=== PATIENT | male | born 1960 | race Caucasian/White ===

== ENCOUNTER 2021-07-22 07:55 | Inpatient (IN) ==
[2021-07-22] MEDS ORDERED: dilTIAZem HCl 5 MG/ML 5 ML VIAL IV STA (08:26)
--- NOTE | 2021-07-22 08:31 | Emergency Department Note ---
History of Present Illness General Chief complaint: Tachycardia Stated complaint: AFIB, S/P HERNIA SURGER 07/10 Time Seen by Provider: 07/22/21 08:12 History of Present Illness 60-year-old male presents to the ED with a chief complaint of A. fib. The patient states that he felt like he was A. fib starting around 2 AM this morning. The patient had his normal meds with little juice this morning. His symptoms did not improve. He decided come to the ED for evaluation. Denies any chest pains or shortness of breath. He does feel a fluttering rapid heart rate. No fevers or other symptoms. He does report a hernia repair 10 days ago. At that time he was not in A. fib. He has no additional complaints. He has seen Dr. Mckeon in the past. Home Medications Medication Instructions Recorded Confirmed Type aspirin 81 mg tablet,delayed 81 mg PO DAILY 07/22/21 07/22/21 History release atorvastatin 10 mg tablet 10 mg PO DAILY 07/22/21 07/22/21 History Allergies Allergy/AdvReac Type Severity Reaction Status Date / Time No Known Allergies Allergy Unverified 01/08/16 08:41 Past Med/Surg History Social History Smoking Status: Never smoker Review of Systems A total of 10 systems reviewed and were otherwise negative Physical Exam Vital Signs Vital Signs - 24 hr 07/22/21 08:01 07/22/21 08:31 07/22/21 08:40 Temperature 36.3 C L Temperature Source Temporal Artery Scan Pulse Rate 101 H 152 H 85 Pulse Rate from SpO2 Sensor 94 H 79 Respiratory Rate 18 18 16 Respiratory Effort / Characteristics Non-Labored Respiratory Depth Normal Blood Pressure 150/114 H 131/90 116/75 Blood Pressure Mean 126 103 88 Pulse Oximetry 95 94 95 Oxygen Delivery Method Room Air Sepsis Recent Fever Within 48 Hours No Sepsis New/Unexplained Change in Mental Status No Sepsis Action Taken by Nursing No Action Required 07/22/21 08:50 07/22/21 09:00 07/22/21 09:10 Temperature Temperature Source Pulse Rate 72 78 91 H Pulse Rate from SpO2 Sensor 58 L 70 89 Respiratory Rate 19 18 18 Respiratory Effort / Characteristics Respiratory Depth Blood Pressure 102/78 114/84 108/73 Blood Pressure Mean 86 94 84 Pulse Oximetry 93 94 95 Oxygen Delivery Method Sepsis Recent Fever Within 48 Hours Sepsis New/Unexplained Change in Mental Status Sepsis Action Taken by Nursing 07/22/21 09:20 07/22/21 09:30 07/22/21 09:40 Temperature Temperature Source Pulse Rate 89 100 H 85 Pulse Rate from SpO2 Sensor 73 62 75 Respiratory Rate 18 18 18 Respiratory Effort / Characteristics Respiratory Depth Blood Pressure 114/67 112/63 102/73 Blood Pressure Mean 82 79 82 Pulse Oximetry 94 94 93 Oxygen Delivery Method Sepsis Recent Fever Within 48 Hours Sepsis New/Unexplained Change in Mental Status Sepsis Action Taken by Nursing 07/22/21 09:51 07/22/21 10:00 07/22/21 10:10 Temperature Temperature Source Pulse Rate 86 93 H 108 H Pulse Rate from SpO2 Sensor 84 80 90 Respiratory Rate 18 18 18 Respiratory Effort / Characteristics Respiratory Depth Blood Pressure 138/71 119/75 125/66 Blood Pressure Mean 93 89 85 Pulse Oximetry 94 95 94 Oxygen Delivery Method Sepsis Recent Fever Within 48 Hours Sepsis New/Unexplained Change in Mental Status Sepsis Action Taken by Nursing 07/22/21 10:21 07/22/21 10:30 Temperature Temperature Source Pulse Rate 97 H 118 H Pulse Rate from SpO2 Sensor 86 93 H Respiratory Rate 18 18 Respiratory Effort / Characteristics Respiratory Depth Blood Pressure 142/75 H 118/80 Blood Pressure Mean 97 92 Pulse Oximetry 95 94 Oxygen Delivery Method Sepsis Recent Fever Within 48 Hours Sepsis New/Unexplained Change in Mental Status Sepsis Action Taken by Nursing CONSTITUTIONAL/VITAL SIGNS: Reviewed / noted above. GENERAL: Non-toxic in appearance. INTEGUMENTARY: Warm, dry, and [place]. HEAD: Normocephalic. EYES: without scleral icterus or trauma. ENT/OROPHARYNX: clear and moist. LYMPHADENOPATHY/NECK: Is supple without lymphadenopathy or meningismus. RESPIRATORY: Clear to auscultation bilaterally. No increased work of breathing. CARDIOVASCULAR: Rapid and irregular GI/ABDOMEN: Soft and nontender. No organomegaly or pulsatile mass. EXTREMITIES: Warm and well perfused. BACK: No CVA tenderness. NEUROLOGICAL: Intact without focal deficits. PSYCHIATRIC: normal affect. MUSCULOSKELETAL: Normally developed with good muscle tone. TRIAGE NURSING DOCUMENTATION REVIEWED. Course Administered Medications Discontinued Medications Diltiazem HCl (Diltiazem Hcl 5 Mg/Ml 5 Ml Vial) 30 mg IV NOW STA Stop: 07/22/21 08:27 Last Admin: 07/22/21 08:35 Dose: 30 mg Documented by: [id number] Cosigned by: [id number] Medical Decision Making Differential Diagnosis The differential that was considered includes acute myocardial infarction, acute coronary syndrome, myocarditis, pericarditis, pericardial effusions /tamponade, esophageal perforation, thoracic aortic dissection, pulmonary embolism, pneumonia, pneumothorax, pancreatitis, shingles, acute cholecystitis, perforated abdominal viscus. Medical Records Attestation: I reviewed the patient's medical records. Home Medications Current Medication List: was personally reviewed by me Laboratory Data Attestation: I reviewed the patient's lab results. Result diagrams: 07/22/21 08:22 07/22/21 08:22 Lab Results 07/22/21 07/22/21 Range/Units 08:22 08:22 WBC 8.73 (4.8-10.8) K/uL RBC 5.33 (4.7-6.1) M/uL Hgb 16.3 (14.0-18.0) g/dL Hct 46.8 (42-52) % MCV 87.8 (80-100) fL MCH 30.6 (25-34) pg MCHC 34.8 (32-36) g/dL RDW Std Deviation 40.3 (36.4-46.3) fL RDW Coeff of Alicja 12.6 (11.5-14.5) % Plt Count 284 (130-400) K/uL MPV 10.3 (7.4-10.4) fL Immature Gran % (Auto) 0.1 % Neut % (Auto) 70.3 % Lymph % (Auto) 20.5 % Cass % (Auto) 6.2 % Eos % (Auto) 2.7 % Baso % (Auto) 0.2 % Neut # (Auto) 6.13 (1.4-6.5) K/uL Lymph # (Auto) 1.79 (1.2-3.4) K/uL Cass # (Auto) 0.54 (0.11-0.59) K/uL Eos # (Auto) 0.24 (0-0.5) K/uL Baso # (Auto) 0.02 (0-0.2) K/uL Immature Gran # (Auto) 0.01 (0.00-0.02) K/uL Sodium 138 (136-145) mmol/L Potassium 4.2 (3.5-5.1) mmol/L Chloride 108 H (98-107) mmol/L Carbon Dioxide 23 (21-32) mmol/L Anion Gap 7.0 (3-11) BUN 16 (7-18) mg/dl Creatinine 1.07 (0.6-1.4) mg/dl Est Cr Clr Drug Dosing 99.0 ml/min Est GFR ( Amer) 86.4 ml/min Est GFR (Non-Af Amer) 74.5 ml/min BUN/Creatinine Ratio 14.8 (10-20) Glucose 117 H (70-99) mg/dl Calcium 9.4 (8.5-10.1) mg/dl Magnesium 2.1 (1.8-2.4) mg/dl Total Bilirubin 0.6 (0.2-1) mg/dl AST 20 (15-37) U/L ALT 42 (12-78) U/L Alkaline Phosphatase 76 (45-117) U/L Troponin I < 0.015 (0-0.045) ng/ml Total Protein 7.8 (6.4-8.2) gm/dl Albumin 4.0 (3.4-5.0) gm/dl Globulin 3.8 (2.5-4.0) gm/dl Albumin/Globulin Ratio 1.0 (0.9-2) TSH 1.220 (0.300-4.500) uIu/ml ECG Data Attestation: I personally reviewed and interpreted this ECG as follows: Additional Comments: Twelve-lead EKG: Per my interpretation there is atrial fibrillation at a rate of 132. Occasional PVC. No ST elevation. Normal QTC. MDM Narrative Patient presents with recurrent A. fib. He has had this once in the past that required cardioversion. He is not on any anticoagulation. He has not been in A. fib for a long time. He is currently not on a beta-mike for the past year or so because he is usually bradycardic. Symptoms started at 2 AM. His initial blood pressure here is 150/114. EKG shows A. fib with a rate of 132. The patient CBC and chemistry panel was unremarkable. Troponin was negative. TSH was normal. The patient was given 30 mg of IV Cardizem. The patient's heart rate did slow down into the upper upper 90s to low 100s. He did have a brief hypotensive episode that responded to IV fluids. I did speak with Dr. Mckeon. He recommends the patient be admitted. I spoke with the hospitalist, who will see the patient for further inpatient evaluation and care. Impression & Plan Atrial fibrillation with RVR Discharge Plan Visit Data Chief Complaint: Tachycardia Stated Complaint: AFIB, S/P HERNIA SURGER 07/10 ED Provider: Jose Fulton Discharge Problem: Atrial fibrillation with RVR Patient Disposition: Admitted As Inpatient Forms Stand Alone Forms: My [facility], Virtual Emergency Department, Important Visit Information Prescriptions Prescriptions: No Action atorvastatin 10 mg tablet 10 mg PO DAILY RF: 0 aspirin 81 mg tablet,delayed release (DR/EC) 81 mg PO DAILY RF: 0 Referrals Referrals: Nickolas Barros MD [Primary Care Provider] -
[2021-07-22 08:34] LABS: Basophils # (auto) 0.02 K/uL (0-0.2); Basophils % (auto) 0.2 %; Eosinophils # (auto) 0.24 K/uL (0-0.5); Eosinophils % (auto) 2.7 %; Hematocrit (blood only) 46.8 % (42-52); Hemoglobin 16.3 g/dL (14.0-18.0); Immature Granulocytes # (auto) 0.01 K/uL (0.00-0.02); Immature Granulocytes % (auto) 0.1 %; Lymphocytes # (auto) 1.79 K/uL (1.2-3.4); Lymphocytes % (auto) 20.5 %; Mean Corpuscular Hemoglobin 30.6 pg (25-34); Mean Corpuscular Hgb Conc 34.8 g/dL (32-36); Mean Corpuscular Volume 87.8 fL (80-100); Mean Platelet Volume 10.3 fL (7.4-10.4); Monocytes # (auto) 0.54 K/uL (0.11-0.59); Monocytes % (auto) 6.2 %; Neutrophils # (auto) 6.13 K/uL (1.4-6.5); Neutrophils % (auto) 70.3 %; Platelet Count 284 K/uL (130-400); RDW Coefficient of Variation 12.6 % (11.5-14.5); RDW Standard Deviation 40.3 fL (36.4-46.3); Red Blood Count 5.33 M/uL (4.7-6.1); White Blood Count 8.73 K/uL (4.8-10.8)
[2021-07-22 09:02] LABS: Alanine Aminotransferase 42 U/L (12-78); Aspartate Aminotransferase 20 U/L (15-37); BUN Creatinine Ratio 14.8 (10-20); Blood Urea Nitrogen 16 mg/dl (7-18); Calcium 9.4 mg/dl (8.5-10.1); Carbon Dioxide 23 mmol/L (21-32); Chloride 108 mmol/L (98-107); Est GFR (African American) 86.4 ml/min; Est GFR (Non-African American) 74.5 ml/min; Glucose 117 mg/dl (70-99); Magnesium 2.1 mg/dl (1.8-2.4); Potassium 4.2 mmol/L (3.5-5.1); Sodium 138 mmol/L (136-145)
[2021-07-22 09:13] LABS: Alkaline Phosphatase 76 U/L (45-117); Bilirubin,Total 0.6 mg/dl (0.2-1); Globulin 3.8 gm/dl (2.5-4.0); Total Protein 7.8 gm/dl (6.4-8.2); Troponin I < 0.015 ng/ml (0-0.045)
--- NOTE | 2021-07-22 10:46 | History & Physical Report ---
Date of Service July 22, 2021 Assessment & Plan (1) Atrial fibrillation with RVR: (2) Hypercholesteremia: Plan: This is a 60-year-old male who has significant past medical history of paroxysmal atrial relation, hyperlipidemia, chronic rhinitis, history of situa tion elevated blood pressure who presents to ED after experiencing heart racing and palpitations at approximately 2 AM. EKG reveals afib RVR, rates improved with bolus of IV diltiazem x1 for her pat ient became hypotensive. Hypotension resolved with IV fluids. During our evaluation heart rate increased to the 120s. Admit to PCU Consult cardiology start IV heparin gtt, [id number] 0-1 (per epic pt does have situational HTN but is currently not being treated) defer further anticoagulation to cardiology give 12.5mg oral metoprolol x 1 now and then metoprolol tartrate 25mg q6hr IV lopressor for HR > 110 obtain echocardiogram cycle trops - pt denies CP IVF 75cc/hr x 1 L pt takes ASA daily for prevention (no known hx of CAD), will hold while on IV heparin HLD continue statin FULL CODE Dispo: PCU PCP: Dr. Franklyn Nelson Pt was seen and examined in collaboration with Dr. Oconnell, please see addendum History of Present Illness Chief Complaint: Heart fluttering starting at 2a.m. Primary Care Provider: Nickolas Barros MD This is a 60-year-old male who has significant past medical history of paroxysmal atrial fibrillation, hyperlipidemia, chronic rhinitis, history of situation elevated blood pressure who presents to ED after experiencing heart racing and palpitations at approximately 2 AM. Of significance patient does have prior history of cardioversion approximately 5 to 6 years ago. He was successfully cardioverted and is never had a recurrence. He has been off anticoagulation and his beta-mike for several years without sequelae. Of significance he recently did undergo cardiac evaluation for preop clearance for hernia surgery. Hernia surgery was performed on 07/10/2021 and went well. At 2 a.m. he awoke from sleep with, "awful fluttering and irregularity." He got up and tried to go back to bed and slept a couple hours. He woke up at 4 a.m. to 6 a.m. and decided to come to ED. He felt palpitations, but denies chest pain or SOB. He does admit to dizziness, weakness, nausea and shakiness. He denies diaphoresis, f/c/s, syncope, sob, cough, v/d, abdominal pain. He denies recent illness except for recent hernia surgery. He feels he is healing well from surgery. He is eating and drinking as normally. He denies any difficulty with passing urine or stool. He was taking miralax to keep stool soft after surgery, but no bridgett diarrhea. He admits to minimal tenderness at surgical site. In ED he was found to be in afib with RVR. He received 30mg IV diltiazem which resulted in rate and blood pressure reduction. This causes him dizziness. Blood pressure improved with IVF, but HR in 120s. He is very active daily and did walk 3 miles daily. Allergies Allergy/AdvReac Type Severity Reaction Status Date / Time No Known Allergies Allergy Unverified 01/08/16 08:41 Home Medications Medication Instructions Recorded Confirmed Type acetaminophen 650 mg 1,300 mg PO DAILY 07/22/21 07/22/21 History tablet,extended release aspirin 81 mg tablet,delayed 81 mg PO DAILY 07/22/21 07/22/21 History release atorvastatin 10 mg tablet 10 mg PO DAILY 07/22/21 07/22/21 History calcium polycarbophil 625 mg 1,250 mg PO DAILY 07/22/21 07/22/21 History tablet (FiberCon) multivitamin 1 tab PO DAILY 07/22/21 07/22/21 History Past Med/Surg History Medical History (Updated 07/22/21 @ 10:57 by Ora Aceves PA-C) Chronic rhinitis Elevated blood pressure, situational Hypercholesteremia Surgical History (Updated 07/22/21 @ 10:57 by Ora Aceves PA-C) H/O colonoscopy "diverticulosis repeat in 10 years 06/03/15" H/O foot surgery "neuroma x 2 excised" Hx of inguinal hernia surgery 07/10/21 - Dr. donaldson Family History (Updated 07/22/21 @ 10:58 by Ora Aceves PA-C) Grandfather (Maternal) Coronary heart disease Grandfather (Paternal) Coronary heart disease Mother CHF (congestive heart failure) Social History (Updated 07/22/21 @ 10:58 by Ora Aceves PA-C) Smoking Status: Former smoker Tobacco Type: Cigarettes packs per day: 0.5; Years Smoked: 4; Smoking End Date: ; Hx Alcohol Use: Yes Alcohol type: beer Alcohol Intake Frequency: Monthly or Less Hx Substance Use: No Preferred Language: Turkmen Communication Ability: Effective marital status: Current Living Situation: Spouse Review of Systems Review of Systems: All systems reviewed & are unremarkable except as noted in HPI & below Physical Exam Physical Exam: Constitutional: WD/WN, vitals as above, NAD, sitting up in bed, pleasant, conversing easily Head: Normocephalic, Atraumatic Eyes: PERRL, conjunctivae normal, anicteric sclerae ENMT: external ear and nose normal, oropharynx normal Neck: trachea midline, no thyromegaly normal visual inspection Respiratory: normal respiratory effort, lungs clear to auscultation, no wheeze, rales, rhonchi. Normal insp/exp effort, no accessory muscle use Cardiovascular: IRR/IRR, no murmur, no edema Vessels: no JVD or carotid bruit Chest: normal inspection of chest Abdomen: normal bowel sounds, soft, nontender, no hepatosplenomegaly Musculoskeletal: no cyanosis or clubbing, extremities motor strength 5/5 Skin: no rashes, warm and dry normal turgor Neurologic: PERRL, EOMI, accommodation nl, no face palsy, no dysarthria CN's II-XI intact bilaterally and moves all extremities Psychiatric: A+Ox3, euthymic affect Lymphatic: no cervical or axillary lymphadenopathy : deferred Results & Data Results & Data ([facility]) Vital Signs (Past 12 Hours) Vital Signs Temp Pulse Resp BP Pulse Ox 07/22/21 10:30 118 H 18 118/80 94 07/22/21 10:21 97 H 18 142/75 H 95 07/22/21 10:10 108 H 18 125/66 94 07/22/21 10:00 93 H 18 119/75 95 07/22/21 09:51 86 18 138/71 94 07/22/21 09:40 85 18 102/73 93 07/22/21 09:30 100 H 18 112/63 94 07/22/21 09:20 89 18 114/67 94 07/22/21 09:10 91 H 18 108/73 95 07/22/21 09:00 78 18 114/84 94 07/22/21 08:50 72 19 102/78 93 07/22/21 08:40 85 16 116/75 95 07/22/21 08:31 152 H 18 131/90 94 07/22/21 08:01 36.3 C L 101 H 18 150/114 H 95 Medications Administered Medication List Heparin Sodium/Dextrose (Heparin Sodium/Dextrose) 25,000 units in 500 mls @ 35 mls/hr IV .[id number] [facility]; Protocol Stop: 08/21/21 11:29 Last Admin: 07/22/21 11:43 Dose: 1,750 units/hr, 35 mls/hr Documented by: [id number] Cosigned by: [id number] Discontinued Medications Diltiazem HCl (Diltiazem Hcl 5 Mg/Ml 5 Ml Vial) 30 mg IV NOW STA Stop: 07/22/21 08:27 Last Admin: 07/22/21 08:35 Dose: 30 mg Documented by: [id number] Cosigned by: [id number] Heparin Sodium/Dextrose (Heparin 27198 Unit/500 Ml D5w) Confirm Administered Dose 25,000 units IV .STK-MED ONE Stop: 07/22/21 11:35 Last Admin: 07/22/21 11:42 Dose: Not Given Documented by: [id number] Metoprolol Tartrate (Metoprolol Tartrate 25 Mg Tab) 12.5 mg PO NOW STA Stop: 07/22/21 11:15 Last Admin: 07/22/21 11:42 Dose: 12.5 mg Documented by: [id number] COVID-19 Results Results COVID-19 Adm Lab Results: RBC 5.33 M/uL (4.7-6.1) 07/22/21 WBC 8.73 K/uL (4.8-10.8) 07/22/21 Hgb 16.3 g/dL (14.0-18.0) 07/22/21 Hct 46.8 % (42-52) 07/22/21 Plt Count 284 K/uL (130-400) 07/22/21 Neutrophils (%) (Auto) 70.3 % 07/22/21 Lymphocytes (%) (Auto) 20.5 % 07/22/21 Monocytes # (Auto) 0.54 K/uL (0.11-0.59) 07/22/21 Eosinophils # (Auto) 0.24 K/uL (0-0.5) 07/22/21 Immature Granulocyte % (Auto) 0.1 % 07/22/21 Neutrophils # (Auto) 6.13 K/uL (1.4-6.5) 07/22/21 Lymphocytes # (Auto) 1.79 K/uL (1.2-3.4) 07/22/21 Monocytes # (Auto) 0.54 K/uL (0.11-0.59) 07/22/21 Eosinophils # (Auto) 0.24 K/uL (0-0.5) 07/22/21 Basophils # (Auto) 0.02 K/uL (0-0.2) 07/22/21 Immature Granulocyte # (Auto) 0.01 K/uL (0.00-0.02) 07/22/21 Na 138 mmol/L (136-145) 07/22/21 K 4.2 mmol/L (3.5-5.1) 07/22/21 Cl 108 mmol/L (98-107) H 07/22/21 CO2 23 mmol/L (21-32) 07/22/21 Anion Gap 7.0 (3-11) 07/22/21 BUN 16 mg/dl (7-18) 07/22/21 Creatinine 1.07 mg/dl (0.6-1.4) 07/22/21 BUN/Creatinine Ratio 14.8 (10-20) 07/22/21 Glucose Level 117 mg/dl (70-99) H 07/22/21 Ca 9.4 mg/dl (8.5-10.1) 07/22/21 Total Bilirubin 0.6 mg/dl (0.2-1) 07/22/21 AST/SGOT 20 U/L (15-37) 07/22/21 ALT/SGPT 42 U/L (12-78) 07/22/21 Alkaline Phosphatase 76 U/L (45-117) 07/22/21 Total Protein 7.8 gm/dl (6.4-8.2) 07/22/21 Albumin 4.0 gm/dl (3.4-5.0) 07/22/21 Globulin 3.8 gm/dl (2.5-4.0) 07/22/21 Albumin/Globulin Ratio 1.0 (0.9-2) 07/22/21 Troponin I < 0.015 ng/ml (0-0.045) 07/22/21 PTT 28.4 Seconds (21.0-31.0) 07/22/21 INR 1.0 (0.9-1.1) 07/22/21 COVID-19 PCR Pending 07/22/21 Chest X-Ray 07/22/21 Code Status & VTE Plan Code Status FULL CODE VTE Prophylaxis Plan VTE Prophylaxis will be ordered: Yes Supervising Physician Co-Signing Physician Notes Patient is a 60-year-old male with history of paroxysmal atrial fibrillation, hyperlipidemia and no other significant medical history presents with history of sudden onset of palpitations which started early this morning which woke him up from sleep. He reports associated dizziness, nausea. He had successful cardioversion in the past few years ago. He denies any chest pain, dyspnea, syncopal episode, fever, chills. He denies excessive alcohol use but admits to drinking ice tea on a daily basis. Please review HPI for complete details of presentation. Blood work within normal limits. TSH normal. EKG suggestive of A. fib RVR. Received IV Cardizem while in ED. On exam patient is moderately built and nourished, no apparent distress, normocephalic atraumatic, EOMI, lungs are clear to auscultation, normal breath sounds, heart sounds--irregularly irregular, no pedal edema, no audible murmur, abdomen soft, nontender, normal bowel sounds, alert, awake, oriented, grossly no focal deficits. Patient is admitted for management of A. fib RVR. Agree with starting metoprolol 25 mg every 6 hours, IV Lopressor as needed, will start on IV heparin for anticoagulation. Will consult cardiology for further evaluation. Will obtain echo, trend cardiac enzymes, monitor electrolytes and replace as needed. I personally reviewed the record. Patient is interviewed and examined at bedside. Patient's care is coordinated with Ora Aceves PA-C. Please refer to the documentation above for details of patient's presentation and for discussion of other issues.
[2021-07-22] MEDS ORDERED: METOPROLOL TARTRATE 25 MG TAB PO STA (11:14)
[2021-07-22] MEDS ORDERED: Heparin IV Adult Wt-Based Standard *NO* Bolus Protocol IV ONE (11:15)
[2021-07-22 11:32] LABS: Partial Thromboplastin Ratio 1.1; Partial Thromboplastin Time 28.4 Seconds (21.0-31.0); Prothrombin Time 10.2 Seconds (9.0-12.0)
[2021-07-22] MEDS ORDERED: HEPARIN 25000 UNIT/500 ML D5W IV ONE (11:34)
[2021-07-22] MEDS: HEPARIN SODIUM/DEXTROSE 25,000 UNITS/500 ML BAG IV SCH (11:43)
--- NOTE | 2021-07-22 12:38 | XRay Report ---
XR chest 1V portable CLINICAL HISTORY: afib COMPARISON STUDY: January 08, 2016. FINDINGS: No pneumothorax. No pleural effusion. No large infiltrates or consolidative lesions are seen. Redemonstration of the small density projecti ng to the anatomical region of the left hilum, unchanged since prior study in 2015. Cardiomediastinal silhouette is within normal limits in size. No significant pulmonary vascular congestion.. Osseous structures: Degenerative changes of the spine. IMPRESSION: 1. No acute pulmonary process. ACT 112: Negative or not required by law. The above report was generated using voice recognition software. It may contain grammatical, syntax o r spelling errors. Electronically signed by: Sasha Carolina DO 07/22/2021 12:37 PM
[2021-07-22] MEDS ORDERED: SODIUM CHLORIDE 0.9% 1000ML 1,000 ML IV SCH (15:29)
[2021-07-22] MEDS ORDERED: ALUMINUM/MAGNESIUM SUSP 30 ML UDC PO PRN (15:29)
[2021-07-22] MEDS ORDERED: MAGNESIUM HYDROXIDE SUSP 30 ML UDC PO PRN (15:29)
[2021-07-22] MEDS ORDERED: METOPROLOL TARTRATE 1 MG/ML VIAL IV PRN (15:29)
[2021-07-22] MEDS ORDERED: ONDANSETRON INJ 2 MG/ML 2 ML VIAL IV PRN (15:29)
[2021-07-22] MEDS ORDERED: POLYETHYLENE (MIRALAX) 17 GM PACK PO PRN (15:29)
[2021-07-22] MEDS ORDERED: ACETAMINOPHEN 325 MG TAB PO PRN (15:29)
[2021-07-22] MEDS: METOPROLOL TARTRATE 25 MG TAB PO SCH ×2 (16:35→21:06)
--- NOTE | 2021-07-22 16:39 | Cardiology Consultation ---
Date of Consultation July 22, 2021 Assessment & Plan (1) Atrial fibrillation with RVR: (2) Hypertensive heart disease: 60-year-old patient presents with paroxysmal atrial fibrillation rapid ventricular response. History consistent with possible short salvos of recurrent A. fib throughout the week since his surgery 10 days ago. He did not tolerate intravenous diltiazem, 30 mg with resultant hypotension. Continue oral metoprolol 25 mg every 6 hours. N.p.o. except medications after midnight with plans for transesophageal echocardiogram guided cardioversion in the a.m. Weight-based intravenous heparin initiated. Recommend at least 30 days of anticoagulation post cardioversion. Risk, benefits, alternatives to UDAY guided cardioversion discussed. Anesthesia consulted. Patient agreeable. History of Present Illness Reason for Consultation: Atrial fibrillation with rapid ventricular response Requesting Physician: Dr. Oconnell Attending Physician: George Oconnell MD History of Present Illness 60-year-old patient presented to the emergency department with palpitations. Underwent laparoscopic hernia repair approximately 10 days ago. Throughout the week he has noted intermittent "chest quivers". Symptoms lasting seconds to minutes. At approximately 2 AM last evening, he woke again with a feeling of "chest quivers". He drank some water in the hopes that symptoms resolved. Symptoms persisted prompting ER evaluation. In the ER ECG confirmed atrial fibrillation with rapid ventricular response. He was treated with a 30 mg dose of IV Cardizem. He subsequently developed symptomatic hypotension and near syncope. Received IV fluids with improvement. Intravenous heparin initiated. Currently resting comfortably in hospital bed. Heart rate up to 140 bpm without any obvious symptoms. Last episode of atrial fibrillation occurred in 2016. At that time patient underwent external direct-current cardioversion with 150 J. No complications. He was not treated with beta-mike therapy in the outpatient setting due to chronic sinus bradycardia. Anticoagulated 30 days post most recent cardioversion in 2016, however, due to low [id number] score, he has not been maintained on chronic anticoagulation. Denies chest pain or heaviness. No personal history of diabetes, coronary disease, TIA/CVA, or rheumatic fever as a child. Preliminary review of resting 2D transthoracic echocardiogram demonstrates moderate concentric left ventric ular hypertrophy, mild left atrial large man, preserved LV systolic function, no significant valvular pathology. Allergies Allergy/AdvReac Type Severity Reaction Status Date / Time No Known Allergies Allergy Unverified 01/08/16 08:41 Home Medications Medication Instructions Recorded Confirmed Type acetaminophen 650 mg 1,300 mg PO DAILY 07/22/21 07/22/21 History tablet,extended release aspirin 81 mg tablet,delayed 81 mg PO DAILY 07/22/21 07/22/21 History release atorvastatin 10 mg tablet 10 mg PO DAILY 07/22/21 07/22/21 History calcium polycarbophil 625 mg 1,250 mg PO DAILY 07/22/21 07/22/21 History tablet (FiberCon) multivitamin 1 tab PO DAILY 07/22/21 07/22/21 History Patient History Medical History Chronic rhinitis Elevated blood pressure, situational Hypercholesteremia Surgical History H/O colonoscopy "diverticulosis repeat in 10 years 06/03/15" H/O foot surgery "neuroma x 2 excised" Hx of inguinal hernia surgery 07/10/21 - Dr. donaldson Family History Grandfather (Maternal) Coronary heart disease Grandfather (Paternal) Coronary heart disease Mother CHF (congestive heart failure) Social History Smoking Status: Former smoker Tobacco Type: Cigarettes packs per day: 0.5; Years Smoked: 4; Smoking End Date: ; Hx Alcohol Use: Yes Alcohol type: beer Alcohol Intake Frequency: Monthly or Less Hx Substance Use: No Preferred Language: Thai Communication Ability: Effective Garbage Man Required: No Beliefs That Will Affect Care: None marital status: Current Living Situation: Spouse Other Information That Helps Us Care for You: No Feels Safe at Home: Yes Safety Concerns: Feels Safe At This Time Assistive Devices: None Review of Systems Review of Systems: All systems reviewed & are unremarkable except as noted in Subjective Physical Exam Constitutional: well developed and well nourished; no acute distress and not ill appearing Respiratory: normal respiratory effort; no respiratory distress, no labored breathing and no retractions Auscultation: lungs clear to auscultation bilaterally; no diminished lung sounds, no crackles, no rales, no rhonchi and no wheezes Cardiovascular: Rate/Rhythm: + tachycardic and + irregularly irregular Heart Sounds: normal S1 and normal S2; no murmur and no cardiac rub Vessels: radial pulses present; no JVD and no carotid bruit Extremities: no calf tenderness and no edema Gastrointestinal (Abdomen): Inspection/Auscultation: abdomen normal to inspection and normal bowel sounds; abdomen not distended Percussion/Palpation: abdomen soft; abdomen nontender, no guarding and abdomen not rigid Neurologic: CN's II-XI intact bilaterally and moves all extremities; no focal motor deficits Motor/Sensory: no tremor Psychiatric: A+Ox3, euthymic affect Results & Data ([facility]) Vital Signs (Past 12 Hours) Vital Signs Temp Pulse Pulse Resp BP BP Pulse Ox 07/22/21 15:24 36.5 C 120 H 120 H 20 144/91 H 99 07/22/21 14:31 109 H 18 152/90 H 97 07/22/21 14:00 93 H 18 135/83 97 07/22/21 13:45 108 H 18 127/88 96 07/22/21 13:31 99 H 20 131/84 97 07/22/21 13:16 116 H 19 145/81 H 95 07/22/21 13:00 126 H 17 139/87 94 07/22/21 12:46 110 H 20 121/56 L 95 07/22/21 12:31 132 H 18 98/69 L 93 07/22/21 12:15 136 H 20 94 07/22/21 12:03 121 H 15 96 07/22/21 11:46 117 H 12 95 07/22/21 11:31 135 H 18 118/98 95 07/22/21 11:16 122 H 15 136/97 94 07/22/21 11:00 119 H 16 151/113 H 95 07/22/21 10:46 121 H 12 129/100 95 07/22/21 10:30 118 H 18 118/80 94 07/22/21 10:21 97 H 18 142/75 H 95 07/22/21 10:10 108 H 18 125/66 94 07/22/21 10:00 93 H 18 119/75 95 07/22/21 09:51 86 18 138/71 94 07/22/21 09:40 85 18 102/73 93 07/22/21 09:30 100 H 18 112/63 94 07/22/21 09:20 89 18 114/67 94 07/22/21 09:10 91 H 18 108/73 95 07/22/21 09:00 78 18 114/84 94 07/22/21 08:50 72 19 102/78 93 07/22/21 08:40 85 16 116/75 95 07/22/21 08:31 152 H 18 131/90 94 07/22/21 08:01 36.3 C L 101 H 18 150/114 H 95
[2021-07-22 20:37] LABS: Partial Thromboplastin Time 52.4 Seconds (21.0-31.0)
[2021-07-23] MEDS: HEPARIN SODIUM/DEXTROSE 25,000 UNITS/500 ML BAG IV SCH (01:09)
[2021-07-23 05:20] LABS: Hematocrit (blood only) 45.4 % (42-52); Hemoglobin 15.7 g/dL (14.0-18.0); Mean Corpuscular Hemoglobin 30.7 pg (25-34); Mean Corpuscular Hgb Conc 34.6 g/dL (32-36); Mean Corpuscular Volume 88.7 fL (80-100); Mean Platelet Volume 10.3 fL (7.4-10.4); Platelet Count 258 K/uL (130-400); RDW Coefficient of Variation 12.9 % (11.5-14.5); RDW Standard Deviation 41.9 fL (36.4-46.3); Red Blood Count 5.12 M/uL (4.7-6.1); White Blood Count 10.13 K/uL (4.8-10.8)
[2021-07-23 05:42] LABS: BUN Creatinine Ratio 16.3 (10-20); Calcium 8.9 mg/dl (8.5-10.1); Creatinine Clr Calc Pharmacy 106.1 ml/min; Est GFR (African American) 94.9 ml/min; Est GFR (Non-African American) 81.9 ml/min; Magnesium 2.2 mg/dl (1.8-2.4); Potassium 4.2 mmol/L (3.5-5.1)
[2021-07-23 05:43] LABS: Partial Thromboplastin Ratio 2.2
[2021-07-23 05:47] LABS: Partial Thromboplastin Time 58.7 Seconds (21.0-31.0)
--- NOTE | 2021-07-23 05:51 | Electrocardiogram Report ---
Test Reason : Blood Pressure : / mmHG Vent. Rate : 132 BPM Atrial Rate : 131 BPM P-R Int : 000 ms QRS Dur : 080 ms QT Int : 300 ms P-R-T Axes : 000 050 010 degrees QTc Int : 444 ms Atrial fibrillation with rapid ventricular response with premature ventricular or aberrantly conducte d complexes Abnormal ECG When compared with ECG of 09-JAN-2016 11:10, Atrial fibrillation has replaced Sinus rhythm Vent. rate has increased BY 82 BPM Nonspecific T wave abnormality now evident in Inferior leads Confirmed by Bull Reyes ([id number]) on 07/23/2021 5:51:00 AM Referred By: REFERRED SELF Confirmed By:Bull Reyes
--- NOTE | 2021-07-23 06:30 | Anesthesiology Consultation ---
Date of Service July 23, 2021 Assessment & Plan (1) Encounter for pre-operative examination: Chart Review Chart Review: data entry analyst initiated History Surgery Operation Date: 07/23/21 07:15 Proposed Procedures p Transesophageal Echo w/Anesthesia - Ayden Lopez DO s Cardioversion - Ayden Lopez DO Height/Weight Height: 6 ft 4 in Weight: 109.1 kg Allergies Allergy/AdvReac Type Severity Reaction Status Date / Time No Known Allergies Allergy Unverified 01/08/16 08:41 Medications Home Medications Medication Instructions Recorded Confirmed Last Taken acetaminophen 650 mg 1,300 mg PO DAILY 07/22/21 07/22/21 Unknown tablet,extended release aspirin 81 mg tablet,delayed 81 mg PO DAILY 07/22/21 07/22/21 Unknown release atorvastatin 10 mg tablet 10 mg PO DAILY 07/22/21 07/22/21 Unknown calcium polycarbophil 625 mg 1,250 mg PO DAILY 07/22/21 07/22/21 Unknown tablet (FiberCon) multivitamin 1 tab PO DAILY 07/22/21 07/22/21 Unknown Active Medications Generic Name Dose Route Start Last Admin Trade Name Freq PRN Reason Stop Dose Admin Heparin Sodium/Dextrose 25,000 units in 500 mls @ 35 mls/hr 07/22/21 11:30 07/23/21 05:52 Heparin Sodium/Dextrose IV 08/21/21 11:29 1,750 units/hr .[id number] MINA 35 mls/hr Titration Protocol 1,750 UNITS/HR Metoprolol Tartrate 25 mg 07/22/21 16:00 07/22/21 21:06 Metoprolol Tartrate 25 Mg Tab PO 08/21/21 15:59 25 mg QID MINA Administration Past Medical History Medical History Chronic rhinitis Elevated blood pressure, situational Hypercholesteremia Past Family History Family History Grandfather (Maternal) Coronary heart disease Grandfather (Paternal) Coronary heart disease Mother CHF (congestive heart failure) Past Surgical History Surgical History H/O colonoscopy "diverticulosis repeat in 10 years 06/03/15" H/O foot surgery "neuroma x 2 excised" Hx of inguinal hernia surgery 07/10/21 - Dr. donaldson Social History Smoking Status: Former smoker Smoking End Date: Hx Alcohol Use: Yes Alcohol type: beer Hx Substance Use: No Physical Exam Vital Signs Last Vital Signs Temp 97.9 F 07/23/21 04:40 Pulse 105 H 07/23/21 04:40 Resp 18 07/23/21 04:40 BP 114/88 07/23/21 04:40 Pulse Ox 95 07/23/21 04:40 Testing Laboratory Results 07/23/21 04:45 07/23/21 04:45 PT 10.2 Seconds (9.0-12.0) 07/22/21 08:22 INR 1.0 (0.9-1.1) 07/22/21 08:22 APTT 58.7 Seconds (21.0-31.0) H* 07/23/21 04:45 Electrocardiogram Date: 07/23/21 Atrial fibrillation with premature ventricular or aberrantly conducted complexes, rate 100 bpm Abnormal ECG When compared with ECG of 22-JUL-2021 08:10, Non-specific change in ST segment in Lateral leads Nonspecific T wave abnormality no longer evident in Inferior leads Nonspecific T wave abnormality now evident in Lateral leads Chest X-Ray Date: 07/22/21 Findings: + NAD
[2021-07-23] MEDS ORDERED: CANNULA ONE (07:25)
--- NOTE | 2021-07-23 08:45 | Anesthesiology Progress Note ---
Date of Service July 23, 2021 Anesthesia Post Procedure Vital Signs Vital Signs: Temp Pulse Pulse Resp BP BP Pulse Ox 07/23/21 08:30 54 L 18 90/64 L 94 07/23/21 08:15 56 L 18 92/56 L 97 07/23/21 07:18 115 H 18 96 07/23/21 04:40 36.6 C 105 H 18 114/88 95 07/22/21 23:25 100 H 07/22/21 23:16 36.6 C 89 18 132/96 93 07/22/21 19:21 37.1 C 90 18 140/97 95 07/22/21 19:07 90 07/22/21 16:00 120 H 07/22/21 15:24 36.5 C 120 H 120 H 20 144/91 H 99 07/22/21 14:31 109 H 18 152/90 H 97 07/22/21 14:00 93 H 18 135/83 97 07/22/21 13:45 108 H 18 127/88 96 07/22/21 13:31 99 H 20 131/84 97 07/22/21 13:16 116 H 19 145/81 H 95 07/22/21 13:00 126 H 17 139/87 94 07/22/21 12:46 110 H 20 121/56 L 95 07/22/21 12:31 132 H 18 98/69 L 93 07/22/21 12:15 136 H 20 94 07/22/21 12:03 121 H 15 96 07/22/21 11:46 117 H 12 95 07/22/21 11:31 135 H 18 118/98 95 07/22/21 11:16 122 H 15 136/97 94 07/22/21 11:00 119 H 16 151/113 H 95 07/22/21 10:46 121 H 12 129/100 95 07/22/21 10:30 118 H 18 118/80 94 07/22/21 10:21 97 H 18 142/75 H 95 07/22/21 10:10 108 H 18 125/66 94 07/22/21 10:00 93 H 18 119/75 95 07/22/21 09:51 86 18 138/71 94 07/22/21 09:40 85 18 102/73 93 07/22/21 09:30 100 H 18 112/63 94 07/22/21 09:20 89 18 114/67 94 07/22/21 09:10 91 H 18 108/73 95 07/22/21 09:00 78 18 114/84 94 07/22/21 08:50 72 19 102/78 93 Transfer of Care Handoff Completed per policy Notes Mental Status: alert / awake / arousable Patient Amnestic to Procedure: Yes Nausea / Vomiting: adequately controlled Pain: adequately controlled Airway Patency, RR, SpO2: stable & adequate BP & HR: stable & adequate Hydration State: stable & adequate Anesthetic Complications: no major complications apparent
[2021-07-23] MEDS: METOPROLOL TARTRATE 25 MG TAB PO SCH ×2 (09:02→13:14)
--- NOTE | 2021-07-23 10:49 | Cardioversion ---
Date of Service July 23, 2021 Electrical Cardioversion Rpt Electrical Cardioversion Report Procedure: External direct-current cardioversion Indication: Paroxysmal atrial fibrillation with rapid ventricular response Complications: None Estimated blood loss: None Anesthesia: Conscious sedation provided by the anesthesia service with propofol. Please see separate report for details. Procedure: Patient was brought to the cardiac catheterization holding area in a fasting state. Consent was obtained prior to procedure. Timeout performed as per protocol. Transesophageal echocardiogram performed prior to cardioversion. No evidence of left atrial appendage thrombus. Please see separate report for complete details. Defibrillator pads were placed prior to transesophageal echocardiogram. When the transesophageal echocardiogram probe was removed, the defibrillator was synced to the QRS complex. A single 150 J shock was delivered. Patient successfully converted from atrial fibrillation to marked sinus bradycardia with heart rate ranging from 36-45 bpm. Heart rate improved to 50 bpm prior to leaving the cardiac catheterization holding area. Patient tolerated procedure well. No focal neurologic deficits post procedure. Conclusion: Successful transesophageal echo guided external direct-current cardioversion from atrial fibrillation with rapid ventricular response to sinus bradycardia with 150 J.
[2021-07-23] MEDS: CALCIUM POLYCARBOPHIL 625MG TAB PO SCH (10:52)
[2021-07-23] MEDS: ATORVASTATIN 10 MG TAB PO SCH (10:52)
[2021-07-23] MEDS: MULTIVITAMIN TAB PO SCH (10:53)
[2021-07-23] MEDS: APIXABAN 5 MG TABLET PO SCH ×2 (10:53→21:10)
--- NOTE | 2021-07-23 12:28 | Cardiology Progress Note ---
Date of Service July 23, 2021 Assessment & Plan (1) Atrial fibrillation with RVR: (2) Hypertensive heart disease: Plan: Successful external direct-current cardioversion performed with 150 J. Marked sinus bradycardia noted on telemetry. Beta-mike discontinued. Continue oral anticoagulation for a minimum of 1 month. I will not initiate oral beta-mike therapy at this time due to marked sinus bradycardia at rest. Plan repeat outpatient ZIO monitor in approximately 2 weeks. Blood pressure borderline hypotensive. Continue to monitor. No further inpatient cardiac testing or intervention at this time. Admission and Anticipated Discharge Date Admission Date: July 22, 2021 Subjective Patient seen and examined the bedside post cardioversion. Marked sinus bradycardia noted on telemetry. Patient denies lightheadedness or dizziness. Review of outpatient records demonstrates ECGs with heart rate in the 40s. Denies palpitations or chest pain. No signs/symptoms of GI/ blood loss. Review of Systems Review of Systems: All systems reviewed & are unremarkable except as noted in Subjective Physical Exam Constitutional: well developed and well nourished; no acute distress and not ill appearing Respiratory: normal respiratory effort; no respiratory distress, no labored breathing and no retractions Auscultation: lungs clear to auscultation bilaterally; no diminished lung sounds, no crackles, no rales, no rhonchi and no wheezes Cardiovascular: Rate/Rhythm: regular rate and + bradycardic Heart Sounds: normal S1 and normal S2; no murmur and no cardiac rub Vessels: radial pulses present; no JVD and no carotid bruit Extremities: no calf tenderness and no edema Gastrointestinal (Abdomen): Inspection/Auscultation: abdomen normal to inspection and normal bowel sounds; abdomen not distended Percussion/Palpation: abdomen soft; abdomen nontender, no guarding and abdomen not rigid Neurologic: CN's II-XI intact bilaterally and moves all extremities; no focal motor deficits Motor/Sensory: no tremor Psychiatric: A+Ox3, euthymic affect Results & Data ([facility]) Vital Signs (Past 12 Hours) Vital Signs Temp Pulse Pulse Resp BP BP Pulse Ox 07/23/21 11:02 50 L 15 07/23/21 10:45 53 L 21 102/63 07/23/21 10:30 48 L 19 111/68 07/23/21 10:15 47 L 15 108/59 L 07/23/21 10:00 41 L 16 95/64 L 07/23/21 09:45 44 L 12 102/67 07/23/21 09:30 50 L 15 100/63 07/23/21 09:15 45 L 12 91/54 L 07/23/21 09:05 53 L 18 97/45 L 07/23/21 08:54 55 L 13 95/58 L 97 07/23/21 08:30 54 L 18 90/64 L 94 07/23/21 08:15 56 L 18 92/56 L 97 07/23/21 07:18 115 H 18 96 07/23/21 04:40 36.6 C 105 H 18 114/88 95
--- NOTE | 2021-07-23 18:05 | Hospitalist Progress Note ---
Date of Service July 23, 2021 delayed entry dater of service noted above Assessment & Plan (1) Atrial fibrillation with RVR: (2) Hypercholesteremia: Plan: per admitting service notes This is a 60-year-old male who has significant past medical history of paroxysma l atrial relation, hyperlipidemia, chronic rhinitis, history of situation elevated blood pressure who presents to ED after experiencing heart racing and palpitations at approximately 2 AM. EKG reveals afib RVR, rates improved with bolus of IV diltiazem x1 for her patient became hypotensive. Hypotension resolved with IV fluids. During our evaluation heart rate increased to the 120s. s/p Successful external direct-current cardioversion performed with 150 J. Metoprolol discontinued due to marked bradycardia transitioned from Heparin to Eliquis--> continue for at least 1 month Plan repeat outpatient ZIO monitor in approximately 2 weeks. monitor BP and HR HLD continue statin FULL CODE Dispo: PCU PCP: Dr. Franklyn Nelson plan of care discussed with patient in detail and at length all questions answered he is understanding, agreeable, comfortable with the plan of care Admission and Anticipated Discharge Date Admission Date: July 23, 2021 Subjective ff up for afib with RVR seen s/p elec cardioversion sitting up in bed, comfortable states he feels better overall no chest pain, dyspnea, palpitations, dizziness no abdominal pain, nausea/vomiting no other symptoms Review of Systems Review of Systems: all noted and negative except for above Physical Exam Physical Exam: General- oriented x 3, not in distress, speaks in sentences with no effort or accessory muscle use Head- atraumatic Eyes- PERRL, EOMI, anicteric ENT- oropharynx clear Neck- supple, no JVD, no adenopathy, no thyromegaly; carotids +2/2, no bruits appreciated Lungs- clear to auscultation bilaterally, no rales/wheezes Heart- normal rate, regular rhythm; no murmur, no gallop, no rub appreciated Abdomen- normal bowel sounds, nondistended, soft, nontender, no masses or hepatosplenomegaly Extremities- no pretibial edema, no calf tenderness; peripheral pulses intact Neuro- alert, oriented x 3; CN 2-12 grossly intact; motor 5/5 bilaterally;sensation 100% on all extremities; no other gross focal neurologic deficits Skin- warm & dry Results & Data Results & Data ([facility]) Vital Signs (Past 12 Hours) Vital Signs Pulse Pulse Resp BP BP Pulse Ox 07/23/21 13:00 57 L 15 07/23/21 12:45 49 L 17 07/23/21 12:30 52 L 18 07/23/21 12:15 54 L 9 L 07/23/21 12:00 47 L 17 07/23/21 11:45 54 L 12 07/23/21 11:30 52 L 14 07/23/21 11:15 46 L 19 07/23/21 11:02 50 L 15 07/23/21 10:45 53 L 21 102/63 07/23/21 10:30 48 L 19 111/68 07/23/21 10:15 47 L 15 108/59 L 07/23/21 10:00 41 L 16 95/64 L 07/23/21 09:45 44 L 12 102/67 07/23/21 09:30 50 L 15 100/63 07/23/21 09:15 45 L 12 91/54 L 07/23/21 09:05 53 L 18 97/45 L 07/23/21 08:54 55 L 13 95/58 L 97 07/23/21 08:30 54 L 18 90/64 L 94 07/23/21 08:15 56 L 18 92/56 L 97 07/23/21 07:18 115 H 18 96 all noted and reviewed including below
[2021-07-24 05:24] LABS: Partial Thromboplastin Ratio 1.1; Partial Thromboplastin Time 28.7 Seconds (21.0-31.0)
--- NOTE | 2021-07-24 06:05 | Electrocardiogram Report ---
Test Reason : Blood Pressure : / mmHG Vent. Rate : 100 BPM Atrial Rate : 357 BPM P-R Int : 000 ms QRS Dur : 084 ms QT Int : 342 ms P-R-T Axes : 000 033 038 degrees QTc Int : 441 ms Atrial fibrillation with premature ventricular or aberrantly conducted complexes Abnormal ECG When compared with ECG of 22-JUL-2021 08:10, Non-specific change in ST segment in Lateral leads Confirmed by Bull Reyes ([id number]) on 07/24/2021 6:04:43 AM Referred By: REFERRED SELF Confirmed By:Bull Reyes
--- NOTE | 2021-07-24 06:13 | Electrocardiogram Report ---
Test Reason : Blood Pressure : / mmHG Vent. Rate : 056 BPM Atrial Rate : 056 BPM P-R Int : 160 ms QRS Dur : 084 ms QT Int : 408 ms P-R-T Axes : 041 040 061 degrees QTc Int : 393 ms Sinus bradycardia with sinus arrhythmia Otherwise normal ECG When compared with ECG of 23-JUL-2021 04:49, Sinus rhythm has replaced Atrial fibrillation Vent. rate has decreased BY 44 BPM Confirmed by Bull Reyes ([id number]) on 07/24/2021 6:12:57 AM Referred By: REFERRED SELF Confirmed By:Bull Reyes
[2021-07-24] MEDS: ATORVASTATIN 10 MG TAB PO SCH (09:20)
[2021-07-24] MEDS: APIXABAN 5 MG TABLET PO SCH (09:20)
[2021-07-24] MEDS: CALCIUM POLYCARBOPHIL 625MG TAB PO SCH (09:20)
[2021-07-24] MEDS: MULTIVITAMIN TAB PO SCH (09:20)
--- NOTE | 2021-07-24 12:35 | Cardiology Progress Note ---
Date of Service July 24, 2021 Assessment & Plan (1) Atrial fibrillation with RVR: (2) Hypertensive heart disease: Plan: Status post successful external direct-current cardioversion performed with 150 J July 23, 2021. Marked sinus bradycardia noted on telemetry. Beta-mike discontinued. Continue oral anticoagulation for a minimum of 1 month. I will not initiate oral beta-mike therapy at this time due to marked sinus bradycardia at rest. Plan repeat outpatient ZIO monitor in approximately 2 weeks. Outpatient cardiology follow-up in 2-4 weeks. Admission and Anticipated Discharge Date Admission Date: July 23, 2021 Subjective Patient seen and examined at the bedside. Telemetry reveals predominant sinus bradycardia with heart rate ranging from 40-60 bpm. No recurrent atrial fibrillation. Offers no complaints. Review of Systems Review of Systems: All systems reviewed & are unremarkable except as noted in Subjective Physical Exam Constitutional: well developed and well nourished; no acute distress and not ill appearing Respiratory: normal respiratory effort; no respiratory distress, no labored breathing and no retractions Auscultation: lungs clear to auscultation bilaterally; no diminished lung sounds, no crackles, no rales, no rhonchi and no wheezes Cardiovascular: Rate/Rhythm: regular rate and + bradycardic Heart Sounds: normal S1 and normal S2; no murmur and no cardiac rub Vessels: radial pulses present; no JVD and no carotid bruit Extremities: no calf tenderness and no edema Gastrointestinal (Abdomen): Inspection/Auscultation: abdomen normal to inspection and normal bowel sounds; abdomen not distended Percussion/Palpation: abdomen soft; abdomen nontender, no guarding and abdomen not rigid Neurologic: CN's II-XI intact bilaterally and moves all extremities; no focal motor deficits Motor/Sensory: no tremor Psychiatric: A+Ox3, euthymic affect Results & Data ([facility]) Vital Signs (Past 12 Hours) Vital Signs Temp Pulse Pulse Resp BP BP Pulse Ox 07/24/21 09:00 56 L 14 139/77 07/24/21 08:00 59 L 20 07/24/21 07:55 36.7 C 07/24/21 07:00 53 L 17 07/24/21 04:51 36.6 C 49 L 15 125/62 94
--- NOTE | 2021-07-24 19:10 | Hospitalist Progress Note ---
Date of Service July 24, 2021 Assessment & Plan (1) Atrial fibrillation with RVR: (2) Hypercholesteremia: Plan: per admitting service notes This is a 60-year-old male who has significant past medical history of paroxysmal atrial relation, hyperlipidemia, chronic rhinitis, history of situation elevated blood pressure who presents to ED after experiencing heart racing and palpitations at approximately 2 AM. EKG reveals afib RVR, rates improved with bolus of IV diltiazem x1 for her patient became hypotensive. Hypotension resolved with IV fluids. During our evaluation heart rate increased to the 120s. Chili Maker Dr. Lopez consulted 07/23/21: s/p Successful external direct-current cardioversion performed with 150 J Metoprolol discontinued due to marked bradycardia transitioned from Heparin to Eliquis--> continue for at least 1 month Plan to repeat outpatient ZIO monitor in approximately 2 weeks. monitor BP as outpatient ff up with PCP in 1 week HLD continue statin FULL CODE Dispo: PCU PCP: Dr. Franklyn Nelson plan of care discussed with patient in detail and at length all questions answered he is understanding, agreeable, comfortable with the plan of care Admission and Anticipated Discharge Date Admission Date: July 23, 2021 Subjective ff up for a fib in RVR seen resting in bed, comfortable states he rested well overnight no arrhythmias noted no chest pain, dyspnea, palpitations, dizziness no other symptoms no bleeding Review of Systems Review of Systems: all noted and negative except for above Physical Exam Physical Exam: General- oriented x 3, not in distress, speaks in sentences with no effort or accessory muscle use Eyes- anicteric Neck- no JVD Lungs- clear breath sounds bilaterally, no rales/wheezes Heart- normal rate, regular rhythm; no murmurs Abdomen- normal bowel sounds, nondistended, soft, nontender Extremities- no pretibial edema, no calf tenderness Neuro- alert, oriented x 3; no gross focal neurologic deficits Skin- warm & dry Results & Data Results & Data ([facility]) Vital Signs (Past 12 Hours) Vital Signs Temp Pulse Pulse Resp BP BP Pulse Ox 07/24/21 12:28 36.7 C 49 L 14 125/62 94 07/24/21 09:00 56 L 14 139/77 07/24/21 08:00 59 L 20 07/24/21 07:55 36.7 C all noted and reviewed including below
--- NOTE | 2021-07-24 19:22 | Discharge Summary ---
Date of Service July 24, 2021 Admission HPI Per Admitting Provider This is a 60-year-old male who has significant past medical history of paroxysmal atrial fibrillation, hyperlipidemia, chronic rhinitis, history of situation elevated blood pressure who presents to ED after experiencing heart racing and palpitations at approximately 2 AM. Of significance patient does have prior history of cardioversion approximately 5 to 6 years ago. He was successfully cardioverted and is never had a recurrence. He has been off anticoagulation and his beta-mike for several years without sequelae. Of significance he recently did undergo cardiac evaluation for preop clearance for hernia surgery. Hernia surgery was performed on 07/10/2021 and went well. At 2 a.m. he awoke from sleep with, "awful fluttering and irregularity." He got up and tried to go back to bed and slept a couple hours. He woke up at 4 a.m. to 6 a.m. and decided to come to ED. He felt palpitations, but denies chest pain or SOB. He does admit to dizziness, weakness, nausea and shakiness. He denies diaphoresis, f/c/s, syncope, sob, cough, v/d, abdominal pain. He denies recent illness except for recent hernia surgery. He feels he is healing well from surgery. He is eating and drinking as normally. He denies any difficulty with passing urine or stool. He was taking miralax to keep stool soft after surgery, but no bridgett diarrhea. He admits to minimal tenderness at surgical site. In ED he was found to be in afib with RVR. He received 30mg IV diltiazem which resulted in rate and blood pressure reduction. This causes him dizziness. Blood pressure improved with IVF, but HR in 120s. He is very active daily and did walk 3 miles daily Admission Exam (Per Admitting) Constitutional Constitutional: WD/WN, vitals as above, NAD, sitting up in bed, pleasant, conversing easily Head: Normocephalic, Atraumatic Eyes: PERRL, conjunctivae normal, anicteric sclerae ENMT: external ear and nose normal, oropharynx normal Neck: trachea midline, no thyromegaly normal visual inspection Respiratory: normal respiratory effort, lungs clear to auscultation, no wheeze, rales, rhonchi. Normal insp/exp effort, no accessory muscle use Cardiovascular: IRR/IRR, no murmur, no edema Vessels: no JVD or carotid bruit Chest: normal inspection of chest Abdomen: normal bowel sounds, soft, nontender, no hepatosplenomegaly Musculoskeletal: no cyanosis or clubbing, extremities motor strength 5/5 Skin: no rashes, warm and dry normal turgor Neurologic: PERRL, EOMI, accommodation nl, no face palsy, no dysarthria CN's II-XI intact bilaterally and moves all extremities Psychiatric: A+Ox3, euthymic affect Lymphatic: no cervical or axillary lymphadenopathy : deferred Discharge Data Consultations 07/22/21 10:40 Consult Cardiology Routine 07/22/21 11:07 ED Decision to Admit Stat 07/22/21 16:29 Consult Anesthesiology Routine 07/22/21 16:31 Consult Anesthesiology Routine Procedures Performed Operation Date: 07/23/21 07:15 Actual Procedures p Echo Transesophageal - Ayden Lopez DO s Cardioversion - Ayden Lopez DO s Echo Color Flow - Ayden Lopez DO s Echo Doppler Complete - Ayden Lopez DO Hospital Course (1) Atrial fibrillation with RVR: (2) Hypercholesteremia: per admitting service notes This is a 60-year-old male who has significant past medical history of paroxysmal atrial relation, hyperlipidemia, chronic rhinitis, history of situation elevated blood pressure who presents to ED after experiencing heart racing and palpitations at approximately 2 AM. EKG reveals afib RVR, rates improved with bolus of IV diltiazem x1 for her patient became hypotensive. Hypotension resolved with IV fluids. During our evaluation heart rate increased to the 120s. Bead Trimmer Dr. Lopez consulted 07/23/21: s/p Successful external direct-current cardioversion performed with 150 J Metoprolol discontinued due to marked bradycardia transitioned from Heparin to Eliquis--> continue for at least 1 month Plan to repeat outpatient ZIO monitor in approximately 2 weeks. monitor BP as outpatient ff up with PCP in 1 week HLD continue statin FULL CODE Dispo: PCU PCP: Dr. Franklyn Nelson plan of care discussed with patient in detail and at length all questions answered he is understanding, agreeable, comfortable with the plan of care
--- NOTE | 2021-07-25 06:40 | Electrocardiogram Report ---
Test Reason : Blood Pressure : / mmHG Vent. Rate : 052 BPM Atrial Rate : 052 BPM P-R Int : 164 ms QRS Dur : 092 ms QT Int : 442 ms P-R-T Axes : 037 039 060 degrees QTc Int : 411 ms Sinus bradycardia Otherwise normal ECG When compared with ECG of 23-JUL-2021 08:19, No significant change was found Confirmed by Bull Reyes ([id number]) on 07/25/2021 6:39:45 AM Referred By: REFERRED SELF Confirmed By:Bull Reyes
== END 2021-07-24 12:55 | disposition home or self-care (01) | DRG 310 ==
LOC: 1E 07:55 → ED 07:55 → SUATTDRO 10:40 → 1E 15:00

== ENCOUNTER 2021-10-04 07:30 | Inpatient (IN) ==
[2021-10-04] MEDS ORDERED: SODIUM CHLORIDE 0.9% 500 ML IV STA (08:09)
[2021-10-04] MEDS ORDERED: MoRPHine SULFATE 4 MG/ML 1 ML CARP\\VIAL IV STA (08:09)
--- NOTE | 2021-10-04 08:09 | Emergency Department Note ---
Impression & Plan Acute left flank pain, Hydronephrosis, left, Leukocytosis ED Provider Note NAME: ROBBI POSADA AGE: 60 SEX: M : 1960 ARRIVES VIA: Walk-In INFORMANT: Patient ED PROVIDER(S): Ladarius Haddad DO CHIEF COMPLAINT: Left lower quadrant abdominal pain HPI: Patient is a 60-year-old male who presents ER for left lower quadrant abdominal pain. This started this Tuesday. He had persistent nausea and vomiting. Hasn't been able to keep much down. He was seen evaluated here yesterday and had perinephric stranding and hydroureter without any obvious stone. He denies any headache or change in vision. Pain is an 8 out of 10. No chest pain or shortness of breath. No dysuria, urgency, or frequency. No other exacerbating or remitting factors. ROS: See above HPI for pertinent positives & negatives. A total of 10 systems reviewed and were otherwise negative. PAST MEDICAL HISTORY:See Below PAST SURGICAL HISTORY:See Below FAMILY HISTORY:See Below SOCIAL HISTORY:See Below HOME MEDICATIONS:See Below ALLERGIES:See Below VITALS:See Below PHYSICAL EXAMINATION: GENERAL: Sitting up in bed, alert, well appearing, well nourished, no distress, non-toxic EYE EXAM: normal conjunctiva. PERRL and EOM's grossly intact. OROPHARYNX: no exudate, no erythema, lips, buccal mucosa, and tongue normal and mucous membranes are moist NECK: supple, no nuchal rigidity, no adenopathy, non-tender LUNGS: Clear to auscultation. Normal chest wall mechanics HEART: no murmurs, S1 normal and S2 normal ABDOMEN: abdomen soft, TTP in LLQ, normo-active bowel sounds, no masses, no rebound or guarding. UPPER EXTREMITIES: upper extremities are grossly normal. LOWER EXTREMITIES: No pitting edema. NEURO EXAM: Normal sensorium, cranial nerves II-XII grossly intact, normal speech, no gross weakness of arms, no gross weakness of legs. MEDICAL DECISION MAKING: Patient is a 60-year-old male who presents the ER for left flank pain. He was seen and evaluated here yesterday and has been having worsening pain as well as nausea vomiting. IV was established blood work was obtained. Labs show leukocytosis 14,000. No significant anemia. BMP along with LFTs were unremarkable. T bili slightly elevated 1.2. Lipase normal. UA with hematuria without signs of infection with only 1-5 whites. Covid was negative. Ultrasound showed persistent hydronephrosis. CT was reviewed from yesterday. Patient was given IV fluids and updated bedside. He was also given IV antibiotics. Discussed with urology. Discussed with hospitalist for further evaluation Dr. Stone. Triage Nursing notes reviewed. Limited review of prior medical records performed Vital Signs: reviewed and remarkable for no significant abnormalities Differential diagnosis: Differential diagnoses includes but is not limited to gastritis, peptic ulcer disease, GERD, gallbladder disease, pancreatitis, small bowel obstruction, acute coronary syndrome, pericarditis, ischemic bowel, irritable bowel disease, irritable bowel syndrome, appendicitis, diverticulitis, malignancy, hernia, urinary tract infection, torsion, perforation, trauma, infectious. ER treatment provided: See below Diagnostics interpreted by me: ECG: none Cardiac Monitoring: An order was placed for continuous cardiac monitoring. The monitor shows a rate of 60 with sinus rhythm. Laboratory studies: As stated above and show below. Imaging studies: Ultrasound shows hydronephrosis but a limited study Consultation(s): Discussed with Patrick Calles agrees with admission and he recommended IV antibiotics Discussed the hospitalist for further evaluation Procedures: none Critical Care: None Past Med/Surg History Medical History (Updated 10/04/21 @ 13:43 by Ladarius Haddad DO) Chronic rhinitis Elevated blood pressure, situational Hypercholesteremia PAF (paroxysmal atrial fibrillation) Pre-diabetes a1c 5.9 05/04/21 Surgical History H/O colonoscopy "diverticulosis repeat in 10 years 06/03/15" H/O foot surgery "neuroma x 2 excised" Hx of inguinal hernia surgery 07/10/21 - Dr. donaldson Family History Grandfather (Maternal) Coronary heart disease Grandfather (Paternal) Coronary heart disease Mother CHF (congestive heart failure) Social History (Updated 10/04/21 @ 10:59 by Ora Rocha PA-C) Smoking Status: Never smoker Tobacco Type: Cigarettes packs per day: 0.5; Years Smoked: 4; Hx Alcohol Use: Yes Alcohol type: beer Alcohol Intake Frequency: Monthly or Less Hx Substance Use: No Preferred Language: Croatian Communication Ability: Effective Bilingual Legal Assistant Required: No Beliefs That Will Affect Care: None marital status: Current Living Situation: Spouse Feels Safe at Home: Yes Assistive Devices: None Allergies Allergies Allergy/AdvReac Type Severity Reaction Status Date / Time No Known Allergies Allergy Unverified 01/08/16 08:41 Home Meds Home Medications Medication Instructions Recorded Confirmed acetaminophen 650 mg 1,300 mg PO DAILY 07/22/21 10/04/21 tablet,extended release atorvastatin 10 mg tablet 10 mg PO DAILY 07/22/21 10/04/21 calcium polycarbophil 625 mg 1,250 mg PO DAILY 07/22/21 10/04/21 tablet (FiberCon) multivitamin 1 tab PO DAILY 07/22/21 10/04/21 Previous Rx's Medication Instructions Recorded apixaban 5 mg tablet (Eliquis) 5 mg PO BID #60 tab 07/24/21 oxycodone 5 mg tablet 5 mg PO Q6H PRN #14 tab 10/03/21 Results & Data (ED) Vital Signs Vital Signs - 24 hr 10/04/21 07:34 10/04/21 09:11 10/04/21 09:42 Temperature 36.7 C Temperature Source Temporal Artery Scan Pulse Rate 61 Pulse Rate [Right Apical] 56 L 55 L Pulse Rhythm [Right Apical] Respiratory Rate 18 16 16 Respiratory Effort / Characteristics Non-Labored Respiratory Depth Normal Respiratory Pattern Regular Blood Pressure 153/79 H Blood Pressure [Left Arm] 171/74 H 197/83 H Blood Pressure Mean 103 Blood Pressure Mean [Left Arm] 106 121 Pulse Oximetry 94 95 94 Oxygen Delivery Method Room Air Room Air Room Air Sepsis Recent Fever Within 48 Hours No Sepsis New/Unexplained Change in Mental Status No Sepsis Action Taken by Nursing No Action Required 10/04/21 10:13 10/04/21 12:00 10/04/21 13:00 Temperature Temperature Source Pulse Rate 59 L 60 Pulse Rate [Right Apical] 54 L 56 L Pulse Rhythm [Right Apical] Regular Respiratory Rate 16 18 13 Respiratory Effort / Characteristics Respiratory Depth Respiratory Pattern Blood Pressure 153/80 H 155/77 H Blood Pressure [Left Arm] 164/73 H 155/77 H Blood Pressure Mean 104 103 Blood Pressure Mean [Left Arm] 103 103 Pulse Oximetry 92 96 95 Oxygen Delivery Method Room Air Sepsis Recent Fever Within 48 Hours Sepsis New/Unexplained Change in Mental Status Sepsis Action Taken by Nursing Laboratory Data Result diagrams: 10/04/21 08:28 10/04/21 08:28 Lab Results 10/04/21 10/04/21 10/04/21 Range/Units 08:28 08:28 08:28 WBC 14.09 H (4.8-10.8) K/uL RBC 4.64 L (4.7-6.1) M/uL Hgb 14.1 (14.0-18.0) g/dL Hct 41.7 L (42-52) % MCV 89.9 (80-100) fL MCH 30.4 (25-34) pg MCHC 33.8 (32-36) g/dL RDW Std Deviation 41.9 (36.4-46.3) fL RDW Coeff of Alicja 13.0 (11.5-14.5) % Plt Count 220 (130-400) K/uL MPV 10.8 H (7.4-10.4) fL Immature Gran % (Auto) 0.4 % Neut % (Auto) 85.1 % Lymph % (Auto) 5.1 % [place] % (Auto) 9.2 % Eos % (Auto) 0.1 % Baso % (Auto) 0.1 % Neut # (Auto) 12.00 H (1.4-6.5) K/uL Lymph # (Auto) 0.72 L (1.2-3.4) K/uL [place] # (Auto) 1.30 H (0.11-0.59) K/uL Eos # (Auto) 0.01 (0-0.5) K/uL Baso # (Auto) 0.01 (0-0.2) K/uL Immature Gran # (Auto) 0.05 H (0.00-0.02) K/uL Sodium 136 (136-145) mmol/L Potassium 4.4 (3.5-5.1) mmol/L Chloride 103 (98-107) mmol/L Carbon Dioxide 21 (21-32) mmol/L Anion Gap 11.0 (3-11) BUN 20 H (7-18) mg/dl Creatinine 1.35 (0.6-1.4) mg/dl Est Cr Clr Drug Dosing 70.5 ml/min Est GFR ( Amer) 65.2 ml/min Est GFR (Non-Af Amer) 56.3 ml/min BUN/Creatinine Ratio 15.0 (10-20) Glucose 107 H (70-99) mg/dl Calcium 9.0 (8.5-10.1) mg/dl Total Bilirubin 1.2 H (0.2-1) mg/dl AST 14 L (15-37) U/L ALT 26 (12-78) U/L Alkaline Phosphatase 70 (45-117) U/L Total Protein 7.7 (6.4-8.2) gm/dl Albumin 3.6 (3.4-5.0) gm/dl Globulin 4.1 H (2.5-4.0) gm/dl Albumin/Globulin Ratio 0.9 (0.9-2) Lipase 71 L (73-393) U/L Urine Color Yellow Urine Appearance Clear (Clear) Urine pH 5.5 (4.5-7.5) Ur Specific [place] 1.021 (1.000-1.030) Urine Protein 1+ H (Negative) Urine Glucose (UA) Negative (Negative) Urine Ketones 1+ H (Negative) Urine Blood 3+ H (Negative) Urine Nitrite Negative (Negative) Urine Bilirubin Negative (Negative) Urine Urobilinogen Negative (Negative) Ur Leukocyte Esterase Negative (Negative) Urine WBC (Auto) 1-5 (0-5) /hpf Urine RBC (Auto) >30 H (0-4) /hpf U Hyaline Cast (Auto) 1-5 (0-5) /lpf U Epithel Cells (Auto) 5-10 H (0-5) /lpf Urine Bacteria (Auto) Negative (Negative) COVID-19 Eval Order SARS-CoV-2 (PCR) (Negative) 10/04/21 10/04/21 Range/Units 09:32 09:32 WBC (4.8-10.8) K/uL RBC (4.7-6.1) M/uL Hgb (14.0-18.0) g/dL Hct (42-52) % MCV (80-100) fL MCH (25-34) pg MCHC (32-36) g/dL RDW Std Deviation (36.4-46.3) fL RDW Coeff of Alicja (11.5-14.5) % Plt Count (130-400) K/uL MPV (7.4-10.4) fL Immature Gran % (Auto) % Neut % (Auto) % Lymph % (Auto) % [place] % (Auto) % Eos % (Auto) % Baso % (Auto) % Neut # (Auto) (1.4-6.5) K/uL Lymph # (Auto) (1.2-3.4) K/uL [place] # (Auto) (0.11-0.59) K/uL Eos # (Auto) (0-0.5) K/uL Baso # (Auto) (0-0.2) K/uL Immature Gran # (Auto) (0.00-0.02) K/uL Sodium (136-145) mmol/L Potassium (3.5-5.1) mmol/L Chloride (98-107) mmol/L Carbon Dioxide (21-32) mmol/L Anion Gap (3-11) BUN (7-18) mg/dl Creatinine (0.6-1.4) mg/dl Est Cr Clr Drug Dosing ml/min Est GFR ( Amer) ml/min Est GFR (Non-Af Amer) ml/min BUN/Creatinine Ratio (10-20) Glucose (70-99) mg/dl Calcium (8.5-10.1) mg/dl Total Bilirubin (0.2-1) mg/dl AST (15-37) U/L ALT (12-78) U/L Alkaline Phosphatase (45-117) U/L Total Protein (6.4-8.2) gm/dl Albumin (3.4-5.0) gm/dl Globulin (2.5-4.0) gm/dl Albumin/Globulin Ratio (0.9-2) Lipase (73-393) U/L Urine Color Urine Appearance (Clear) Urine pH (4.5-7.5) Ur Specific [place] (1.000-1.030) Urine Protein (Negative) Urine Glucose (UA) (Negative) Urine Ketones (Negative) Urine Blood (Negative) Urine Nitrite (Negative) Urine Bilirubin (Negative) Urine Urobilinogen (Negative) Ur Leukocyte Esterase (Negative) Urine WBC (Auto) (0-5) /hpf Urine RBC (Auto) (0-4) /hpf U Hyaline Cast (Auto) (0-5) /lpf U Epithel Cells (Auto) (0-5) /lpf Urine Bacteria (Auto) (Negative) COVID-19 Eval Order Covid19 at [facility] SARS-CoV-2 (PCR) NEGATIVE (Negative) Administered Medications Acetaminophen (Acetaminophen 500 Mg Tab) 500 mg PO QID MINA Stop: 11/03/21 12:59 Last Admin: 10/04/21 12:59 Dose: 500 mg Documented by: [id number] Lactated Ringer's (Lr) 1,000 mls @ 125 mls/hr IV .Q8H MINA Stop: 11/03/21 10:59 Last Admin: 10/04/21 11:03 Dose: 125 mls/hr Documented by: [id number] Discontinued Medications Apixaban (Apixaban 5 Mg Tablet) 5 mg PO NOW STA Stop: 10/04/21 10:54 Last Admin: 10/04/21 11:33 Dose: 5 mg Documented by: [id number] Atorvastatin Calcium (Atorvastatin 10 Mg Tab) 10 mg PO NOW STA Stop: 10/04/21 10:54 Last Admin: 10/04/21 11:33 Dose: 10 mg Documented by: [id number] Sodium Chloride (Nss) 500 mls @ 999 mls/hr IV .Q31M STA Stop: 10/04/21 08:39 Last Infusion: 10/04/21 09:12 Dose: 0 mls/hr Documented by: [id number] Admin: 10/04/21 08:27 Dose: 999 mls/hr Documented by: [id number] Ceftriaxone Sodium (Rocephin) 1,000 mg in 50 mls @ 100 mls/hr IV NOW STA Stop: 10/04/21 10:00 Last Infusion: 10/04/21 10:11 Dose: 0 mls/hr Documented by: [id number] Admin: 10/04/21 09:41 Dose: 100 mls/hr Documented by: [id number] Morphine Sulfate (Morphine Sulfate 4 Mg/Ml 1 Ml Carp\\Vial) 4 mg IV NOW STA Stop: 10/04/21 08:10 Last Admin: 10/04/21 08:27 Dose: 4 mg Documented by: [id number] Morphine Sulfate (Morphine Sulfate 10 Mg/Ml Carp/Vial) 6 mg IV NOW STA Stop: 10/04/21 09:35 Last Admin: 11/14/21 09:41 Dose: 6 mg Documented by: [id number] Imaging Data Radiologist's Impression: Renal Ultrasound 10/04/21 08:09 US renal/blad retro comp CLINICAL HISTORY: l flank pain 36 hours of pain TECHNIQUE: Multiple sonographic real-time images of the kidneys and bladder were obtained. COMPARISON: None available at the time of this dictation. FINDINGS: The right kidney measures 12.5 cm in length, and the left kidney measures 14.3 cm in length. The right kidney is normal in size, contour, cortical thickness, and echogenicity. No hydronephrosis is identified. A superior pole cyst measuring 1.1 x 0.8 x 1.0 cm is noted. No perinephric fluid collection is seen. There is no definite hydroureter on the left. There is a prominent collecting system with apparent debris. There may be mild hydronephrosis as well. Exam is limited by patient tenderness. No renal lesion is identified. No perinephric fluid collection is seen. The bladder is partially distended. No large intraluminal mass is seen. IMPRESSION: Likely mild hydronephrosis on the left with apparent debris, evaluation is limited by patient tolerance. ACT 112: Negative or not required by law. Electronically signed by: Corky Mason M.D. 10/04/2021 9:17 AM Discharge Plan Visit Data Chief Complaint: Abdominal Pain Stated Complaint: ABD PAIN ED Provider: Ladarius Haddad Discharge Problem: Acute left flank pain, Hydronephrosis, left, Leukocytosis Forms Stand Alone Forms: My [facility] [place]?Lex Prescriptions Prescriptions: No Action atorvastatin 10 mg tablet 10 mg PO DAILY RF: 0 multivitamin Tablet 1 tab PO DAILY RF: 0 acetaminophen 650 mg Tablet Extended Release 1,300 mg PO DAILY RF: 0 calcium polycarbophil [FiberCon] 625 mg Tablet 1,250 mg PO DAILY RF: 0 Eliquis 5 mg Tablet 5 mg PO BID Qty: 60 RF: 0 oxycodone 5 mg tablet 5 mg PO Q6H PRN (Reason: pain) Qty: 14 RF: 0 Referrals Referrals: Franklyn Nelson DO [Primary Care Provider] - Discharge Problem: Leukocytosis Qualifiers: Leukocytosis type: unspecified Qualified Code(s): D72.829 - Elevated white blood cell count, unspecified
[2021-10-04 08:38] LABS: Basophils # (auto) 0.01 K/uL (0-0.2); Basophils % (auto) 0.1 %; Eosinophils # (auto) 0.01 K/uL (0-0.5); Eosinophils % (auto) 0.1 %; Hematocrit (blood only) 41.7 % (42-52); Hemoglobin 14.1 g/dL (14.0-18.0); Immature Granulocytes # (auto) 0.05 K/uL (0.00-0.02); Immature Granulocytes % (auto) 0.4 %; Lymphocytes # (auto) 0.72 K/uL (1.2-3.4); Lymphocytes % (auto) 5.1 %; Mean Corpuscular Hemoglobin 30.4 pg (25-34); Mean Corpuscular Hgb Conc 33.8 g/dL (32-36); Mean Corpuscular Volume 89.9 fL (80-100); Mean Platelet Volume 10.8 fL (7.4-10.4); Monocytes % (auto) 9.2 %; Neutrophils % (auto) 85.1 %; Platelet Count 220 K/uL (130-400); RDW Standard Deviation 41.9 fL (36.4-46.3); Red Blood Count 4.64 M/uL (4.7-6.1); White Blood Count 14.09 K/uL (4.8-10.8)
[2021-10-04 08:54] LABS: Albumin Level 3.6 gm/dl (3.4-5.0); Creatinine Clr Calc Pharmacy 70.5 ml/min; Est GFR (African American) 65.2 ml/min; Est GFR (Non-African American) 56.3 ml/min; Potassium 4.4 mmol/L (3.5-5.1)
[2021-10-04 08:57] LABS: Albumin Globulin Ratio 0.9 (0.9-2); Appearance Urine Clear (Clear); Bacteria Urine Automated Negative (Negative); Bilirubin Urine Negative (Negative); Bilirubin,Total 1.2 mg/dl (0.2-1); Blood Urine 3+ (Negative); Color Urine Yellow; Globulin 4.1 gm/dl (2.5-4.0); Glucose Urine UA Negative (Negative); Ketones Urine 1+ (Negative); Leukocyte Esterase Urine Negative (Negative); Nitrite Urine Negative (Negative); Protein Urine 1+ (Negative); RBC Urine Automated >30 /hpf (0-4); Specific Gravity Urine 1.021 (1.000-1.030); Total Protein 7.7 gm/dl (6.4-8.2); Urobilinogen Urine Negative (Negative); pH Urine 5.5 (4.5-7.5)
--- NOTE | 2021-10-04 09:18 | Ultrasound Report ---
US renal/blad retro comp CLINICAL HISTORY: l flank pain 36 hours of pain TECHNIQUE: Multiple sonographic real-time images of the kidneys and bladder were obtained. COMPARISON: None available at the time of this dictation. FINDINGS: The right kidney measures 12.5 cm in length, and the left kidney measures 14.3 cm in length. The right kidney is normal in size, contour, cortical thickness, and echogenicity. No hydronephrosis is identified. A superior pole cyst measuring 1.1 x 0.8 x 1.0 cm is noted. No perinephric fluid col lection is seen. There is no definite hydroureter on the left. There is a prominent collecting system with apparent de bris. There may be mild hydronephrosis as well. Exam is limited by patient tenderness. No renal lesi on is identified. No perinephric fluid collection is seen. The bladder is partially distended. No large intraluminal mass is seen. IMPRESSION: Likely mild hydronephrosis on the left with apparent debris, evaluation is limited by patient toleran ce. ACT 112: Negative or not required by law. Electronically signed by: Corky Mason M.D. 10/04/2021 9:17 AM
[2021-10-04] MEDS ORDERED: cefTRIAXone SODIUM 1,000 MG/50 ML BAG IV STA (09:31)
[2021-10-04] MEDS ORDERED: MoRPHine SULFATE 10 MG/ML CARP/VIAL IV STA (09:34)
--- NOTE | 2021-10-04 10:24 | History & Physical Report ---
Date of Service October 04, 2021 Assessment & Plan (1) Acute left flank pain: (2) Hydronephrosis, left: Plan: This is a 60-year-old male who has significant past medical history of PAF anticoagulated on Eliquis, HLD, chronic rhinitis, prediabetes, recent left ingu inal hernia repair 07/10/2021 who presents to ED secondary to left flank pain and left lower quadrant abdominal pain x2 days. CT a/p 10/03: Swelling of the left kidney with perinephric stranding. Mild to moderate left-sided hydronephrosis. However, there is no evidence for hydroureter, renal calculus or ureteral calculus. The findings most likely related to recent passage of a calculus. However, chronic UPJ obstruction cannot be completely excluded based on this single study. US kidney 10/04: Likely mild hydronephrosis on the left with apparent debris, evaluation is limited by patient tolerance Pt continues to be symptomatic with + L Cva tenderness and LLQ pain will admit and request urologic eval admit to med tele consult urology IVF LR @ 125cc/hr strain all urine IV morphine severe pain, oxycodone moderate pain schedule APAP 500mg QID IV Rocephin given leukocytosis and persistent pain, initial urine appears negative but with RBC and protein clear liquid diet, npo after midnight in event procedure warranted (3) LINDA (acute kidney injury): Plan: baseline cr 0.9-1.0 bun/cr 20 and 1.35 today, cr was 1.57 on 10/03 avoid nephrotoxic agents monitor labs (4) PAF (paroxysmal atrial fibrillation): Plan: hx of PAF x 2, recent episode 07/2021 s/p DCCV continue eliquis not on BB 2/2 to bradycardia monitor on tele DVT ppx: eliquis, missed am. dose so give dose now PCP: Franklyn Nelson FULL CODE Pt was seen and examined in collaboration with Dr. oLve, please see addendum Discussed with patient and at bedside, they agree with above plan History of Present Illness Chief Complaint: L Flank pain and LLQ Abd pain x 2 days. Primary Care Provider: Franklyn Nelson, DO This is a 60-year-old male who has significant past medical history of PAF anticoagulated on Eliquis, HLD, chronic rhinitis, prediabetes, recent left inguinal hernia repair 07/10/2021 who presents to ED secondary to left flank pain and left lower quadrant abdominal pain x2 days. Symptoms initially started early Tuesday morning when he experienced left flank pain that would wax and wane, nothing made better or worse, never experienced in the past and associated with vomiting and dry heaves. Symptoms persisted and he opted to be evaluated in ED on Tuesday. During evaluation he did have mild leukocytosis at 14k , LINDA with creatinine 1.[address] scan abdomen pelvis revealed swelling of left kidney with perinephric stranding, mild to moderate left hydronephrosis without evidence of hydroureter, renal calculus or ureteral calculus. He was treated with IV fluids, antiemetics and analgesics and was discharged home. When he got home symptoms slowly started to return and he also complained of lower quadrant pain. He was concerned he could have something to do with his recent hernia repair. He denies any fever, chills, sweats, lightheadedness, dizziness, headache, chest pain, shortness of breath, URI symptoms, dysuria, increased urgency or frequency with urination, melena or hematochezia. His last bowel movement was yesterday and felt he was more constipated, but denies diarrhea. He does complain of nocturia but associated this with age. In ED patient remained hemodynamically stable. He continued to have mild leukocytosis and minimal improvement in creatinine of 1.3. His urinalysis was consistent with proteinuria and RBCs, but bacteria negative. Ultrasound revealed hydronephrosis with apparent left debris. He received IVF, IV Rocephin, and IV analgesia in ED. Allergies Allergy/AdvReac Type Severity Reaction Status Date / Time No Known Allergies Allergy Unverified 01/08/16 08:41 Home Medications Medication Instructions Recorded Confirmed Type acetaminophen 650 mg 1,300 mg PO DAILY 07/22/21 10/04/21 History tablet,extended release atorvastatin 10 mg tablet 10 mg PO DAILY 07/22/21 10/04/21 History calcium polycarbophil 625 mg 1,250 mg PO DAILY 07/22/21 10/04/21 History tablet (FiberCon) multivitamin 1 tab PO DAILY 07/22/21 10/04/21 History apixaban 5 mg tablet (Eliquis) 5 mg PO BID #60 tab 07/24/21 10/04/21 Rx oxycodone 5 mg tablet 5 mg PO Q6H PRN #14 tab 10/03/21 10/04/21 Rx Past Med/Surg History Medical History (Updated 10/04/21 @ 13:43 by Ladarius Haddad DO) Chronic rhinitis Elevated blood pressure, situational Hypercholesteremia PAF (paroxysmal atrial fibrillation) Pre-diabetes a1c 5.9 05/04/21 Surgical History H/O colonoscopy "diverticulosis repeat in 10 years 06/03/15" H/O foot surgery "neuroma x 2 excised" Hx of inguinal hernia surgery 07/10/21 - Dr. donaldson Family History Grandfather (Maternal) Coronary heart disease Grandfather (Paternal) Coronary heart disease Mother CHF (congestive heart failure) Social History (Updated 10/04/21 @ 10:59 by Ora Rocha PA-C) Smoking Status: Never smoker Tobacco Type: Cigarettes packs per day: 0.5; Years Smoked: 4; Second Hand Exposure: No; Do You Dip or Chew Tobacco: No; Tobacco Cessation Education Requested by Patient: No Hx Alcohol Use: Yes Alcohol type: beer Alcohol Intake Frequency: Monthly or Less Hx Substance Use: No Preferred Language: Macedonian Communication Ability: Effective Compressor Technician Required: No Beliefs That Will Affect Care: None marital status: Current Living Situation: Spouse Other Information That Helps Us Care for You: No Feels Safe at Home: Yes Safety Concerns: Feels Safe At This Time Assistive Devices: None Review of Systems Review of Systems: All systems reviewed & are unremarkable except as noted in HPI & below Physical Exam Physical Exam: Constitutional: WD/WN, M, vitals as above, NAD, sitting up in bed, pleasant, conversing easily Head: Normocephalic, Atraumatic Eyes: PERRL, conjunctivae normal, anicteric sclerae ENMT: external ear and nose normal, oropharynx normal Neck: trachea midline, no thyromegaly normal visual inspection Respiratory: normal respiratory effort, lungs clear to auscultation, no wheeze, rales, rhonchi. Normal insp/exp effort, no accessory muscle use Cardiovascular: RRR, 1/6 ROMEL RUSB, no edema Vessels: no JVD or carotid bruit Chest: normal inspection of chest Abdomen: normal bowel sounds, soft, + tenderness to LLQ, no rebound, guarding or rigidity, +CVA tenderness on L, no hepatosplenomegaly Musculoskeletal: no cyanosis or clubbing, extremities motor strength 5/5 Skin: no rashes, warm and dry normal turgor Neurologic: PERRL, EOMI, accommodation nl, no face palsy, no dysarthria CN's II-XI intact bilaterally and moves all extremities Psychiatric: A+Ox3, euthymic affect Lymphatic: no cervical or axillary lymphadenopathy : deferred Results & Data Results & Data ([facility]) Vital Signs (Past 12 Hours) Vital Signs Temp Pulse Pulse Resp BP BP Pulse Ox 10/04/21 10:13 54 L 16 164/73 H 92 10/04/21 09:42 55 L 16 197/83 H 94 10/04/21 09:11 56 L 16 171/74 H 95 10/04/21 07:34 36.7 C 61 18 153/79 H 94 Diagnostic Findings Renal Ultrasound 10/04/21 08:09 US renal/blad retro comp CLINICAL HISTORY: l flank pain 36 hours of pain TECHNIQUE: Multiple sonographic real-time images of the kidneys and bladder were obtained. COMPARISON: None available at the time of this dictation. FINDINGS: The right kidney measures 12.5 cm in length, and the left kidney measures 14.3 cm in length. The right kidney is normal in size, contour, cortical thickness, and echogenicity. No hydronephrosis is identified. A superior pole cyst measuring 1.1 x 0.8 x 1.0 cm is noted. No perinephric fluid collection is seen. There is no definite hydroureter on the left. There is a prominent collecting system with apparent debris. There may be mild hydronephrosis as well. Exam is limited by patient tenderness. No renal lesion is identified. No perinephric fluid collection is seen. The bladder is partially distended. No large intraluminal mass is seen. IMPRESSION: Likely mild hydronephrosis on the left with apparent debris, evaluation is limited by patient tolerance. ACT 112: Negative or not required by law. Electronically signed by: Corky Mason M.D. 10/04/2021 9:[address] A/P 10/03/21 FINDINGS: Lung base: The lung bases are clear. Abdominal cavity: There is no evidence for abdominal mass, adenopathy or ascites. Surgical suture material seen involving the intra-abdominal wall the left of unknown etiology. Liver: The liver is homogeneous in attenuation on these limited noncontrast images.. Spleen: The spleen is homogeneous in attenuation on these limited noncontrast images. Pancreas: The pancreas is homogeneous in attenuation on these limited noncontrast images. Gall Bladder: The gallbladder is well distended with no evidence for cholelithiasis, wall thickening or pericholecystic edema.. Adrenal glands: The adrenal glands are normal in size and attenuation on these limited noncontrast images. Kidneys: There is swelling of the left kidney when compared to the right with perinephric stranding present. There is mild to moderate hydronephrosis present. However, there is no evidence for hydroureter. There is no renal or ureteral calculus present. Findings are most characteristic of recent passage of renal calculus. The presence of chronic UPJ obstruction cannot be completely excluded. There is no evidence of right renal calculus or hydronephrosis. Bowel: The bowel loops are normally placed within the abdomen and pelvis without evidence for dilatation or obstruction. There is no evidence for mass lesion. There are no inflammatory changes present. There is no evidence for free air. There is no evidence for dilated appendix. Bladder: There is no evidence for focal bladder wall thickening, calculus or diverticulum. : There is no evidence for pelvic mass or adenopathy. Vasculature: There is no evidence for focal aneurysmal dilatation of the abdominal aorta. Osseous structures: There is no acute osseous pathology. IMPRESSION: 1. Swelling of the left kidney with perinephric stranding. Mild to moderate left-sided hydronephrosis. However, there is no evidence for hydroureter, renal calculus or ureteral calculus. The findings most likely related to recent passage of a calculus. However, chronic UPJ obstruction cannot be completely excluded based on this single study. 2. No other evidence for acute intra-abdominal or pelvic abnormality on these limited noncontrast images. Medications Administered Medication List Discontinued Medications Sodium Chloride (Nss) 500 mls @ 999 mls/hr IV .Q31M STA Stop: 10/04/21 08:39 Last Infusion: 10/04/21 09:12 Dose: 0 mls/hr Documented by: [id number] Admin: 10/04/21 08:27 Dose: 999 mls/hr Documented by: [id number] Ceftriaxone Sodium (Rocephin) 1,000 mg in 50 mls @ 100 mls/hr IV NOW STA Stop: 10/04/21 10:00 Last Admin: 10/04/21 09:41 Dose: 100 mls/hr Documented by: [id number] Morphine Sulfate (Morphine Sulfate 4 Mg/Ml 1 Ml Carp\\Vial) 4 mg IV NOW STA Stop: 10/04/21 08:10 Last Admin: 10/04/21 08:27 Dose: 4 mg Documented by: [id number] Morphine Sulfate (Morphine Sulfate 10 Mg/Ml Carp/Vial) 6 mg IV NOW STA Stop: 10/04/21 09:35 Last Admin: 10/04/21 09:41 Dose: 6 mg Documented by: [id number] COVID-19 Results Results COVID-19 Adm Lab Results: RBC 4.36 M/uL (4.7-6.1) L 10/05/21 WBC 12.21 K/uL (4.8-10.8) H 10/05/21 Hgb 13.7 g/dL (14.0-18.0) L 10/05/21 Hct 39.2 % (42-52) L 10/05/21 Plt Count 211 K/uL (130-400) 10/05/21 Neutrophils (%) (Auto) 83.7 % 10/05/21 Lymphocytes (%) (Auto) 6.6 % 10/05/21 Monocytes # (Auto) 1.14 K/uL (0.11-0.59) H 10/05/21 Eosinophils # (Auto) 0.02 K/uL (0-0.5) 10/05/21 Immature Granulocyte % (Auto) 0.1 % 10/05/21 Neutrophils # (Auto) 10.23 K/uL (1.4-6.5) H 10/05/21 Lymphocytes # (Auto) 0.80 K/uL (1.2-3.4) L 10/05/21 Monocytes # (Auto) 1.14 K/uL (0.11-0.59) H 10/05/21 Eosinophils # (Auto) 0.02 K/uL (0-0.5) 10/05/21 Basophils # (Auto) 0.01 K/uL (0-0.2) 10/05/21 Immature Granulocyte # (Auto) 0.01 K/uL (0.00-0.02) 10/05/21 Na 134 mmol/L (136-145) L 10/05/21 K 4.1 mmol/L (3.5-5.1) 10/05/21 Cl 103 mmol/L (98-107) 10/05/21 CO2 26 mmol/L (21-32) 10/05/21 Anion Gap 5.0 (3-11) 10/05/21 BUN 16 mg/dl (7-18) 10/05/21 Creatinine 1.32 mg/dl (0.6-1.4) 10/05/21 BUN/Creatinine Ratio 12.2 (10-20) 10/05/21 Glucose Level 98 mg/dl (70-99) 10/05/21 Ca 9.3 mg/dl (8.5-10.1) 10/05/21 Total Bilirubin 1.2 mg/dl (0.2-1) H 10/04/21 AST/SGOT 9 U/L (15-37) L 10/05/21 ALT/SGPT 23 U/L (12-78) 10/05/21 Alkaline Phosphatase 70 U/L (45-117) 10/04/21 Total Protein 7.7 gm/dl (6.4-8.2) 10/04/21 Albumin 3.0 gm/dl (3.4-5.0) L 10/05/21 Globulin 4.1 gm/dl (2.5-4.0) H 10/04/21 Albumin/Globulin Ratio 0.9 (0.9-2) 10/04/21 COVID-19 PCR NEGATIVE (Negative) 10/04/21 Code Status & VTE Plan Code Status Full Code VTE Prophylaxis Plan VTE Prophylaxis will be ordered: No Supervising Physician Co-Signing Physician Notes Pt seen and examined by me, care coordinated with Marianela Rocha PA-C , pls refer to her note above for further detail. 60 y/o male w/ PAF anticoagulated on Eliquis, HLD, chronic rhinitis, prediabetes, recent left inguinal hernia repair 07/10/2021 who presents secondary to left flank pain and left lower quadrant abdominal pain x2 days. During evaluation he did have mild leukocytosis at 14k , LINDA with creatinine 1.[address] scan abdomen pelvis revealed swelling of left kidney with perinephric stranding, mild to moderate left hydronephrosis without evidence of hydroureter, renal calculus or ureteral calculus.His urinalysis was consistent with proteinuria and RBCs, but bacteria negative. Ultrasound revealed hydronephrosis with apparent left debris. Currently patient is lying in bed, in no acute distress. He is alert oriented answering questions appropriately. Lung sounds are clear to auscultation w/o any wheezing rhonchi or crackles. Heart sounds regular. Abdomen soft, + tender to palpation at the left lower quadrant, positive left CVA tenderness. No lower extremity edema. Patient moves extremities. Skin is warm dry. He was started on IV fluids, antiemetics and analgesics. Urology was contacted, and patient was also started on IV Rocephin. Continue current management, and closely monitor. Scott Love MD
[2021-10-04] MEDS ORDERED: APIXABAN 5 MG TABLET PO STA (10:53)
[2021-10-04] MEDS ORDERED: ATORVASTATIN 10 MG TAB PO STA (10:53)
[2021-10-04] MEDS: LACTATED RINGER'S 1,000 ML IV SCH ×2 (11:03→16:37)
[2021-10-04] MEDS: ACETAMINOPHEN 500 MG TAB PO SCH ×3 (12:59→20:16)
[2021-10-04] MEDS ORDERED: ACETAMINOPHEN 325 MG TAB PO PRN (14:55)
[2021-10-04] MEDS ORDERED: ONDANSETRON INJ 2 MG/ML 2 ML VIAL IV PRN (14:55)
[2021-10-04] MEDS ORDERED: ALUMINUM/MAGNESIUM SUSP 30 ML UDC PO PRN (14:55)
[2021-10-04] MEDS ORDERED: MAGNESIUM HYDROXIDE SUSP 30 ML UDC PO PRN (14:55)
[2021-10-04] MEDS ORDERED: POLYETHYLENE (MIRALAX) 17 GM PACK PO PRN (14:55)
[2021-10-04] MEDS: oxyCODONE HCL IR 5 MG TAB (IMMEDIATE RELEASE) PO PRN (15:51)
[2021-10-04] MEDS: DOCUSATE SODIUM/SENNA 50/8.6MG TAB PO SCH (15:51)
[2021-10-04] MEDS: MoRPHine SULFATE 4 MG/ML 1 ML CARP\\VIAL IV PRN (20:12)
[2021-10-04] MEDS: APIXABAN 5 MG TABLET PO SCH (20:17)
[2021-10-04] MEDS ORDERED: hydrALAZINE HCL 20 MG/ML VIAL IV STA (20:55)
[2021-10-05] MEDS: LACTATED RINGER'S 1,000 ML IV SCH ×3 (00:27→19:06)
[2021-10-05] MEDS: MoRPHine SULFATE 4 MG/ML 1 ML CARP\\VIAL IV PRN ×2 (00:31→12:24)
[2021-10-05 07:04] LABS: Basophils # (auto) 0.01 K/uL (0-0.2); Basophils % (auto) 0.1 %; Eosinophils # (auto) 0.02 K/uL (0-0.5); Eosinophils % (auto) 0.2 %; Hematocrit (blood only) 39.2 % (42-52); Hemoglobin 13.7 g/dL (14.0-18.0); Immature Granulocytes # (auto) 0.01 K/uL (0.00-0.02); Immature Granulocytes % (auto) 0.1 %; Lymphocytes % (auto) 6.6 %; Mean Corpuscular Hemoglobin 31.4 pg (25-34); Mean Corpuscular Hgb Conc 34.9 g/dL (32-36); Mean Corpuscular Volume 89.9 fL (80-100); Mean Platelet Volume 10.6 fL (7.4-10.4); Monocytes # (auto) 1.14 K/uL (0.11-0.59); Monocytes % (auto) 9.3 %; Neutrophils # (auto) 10.23 K/uL (1.4-6.5); Neutrophils % (auto) 83.7 %; Platelet Count 211 K/uL (130-400); RDW Coefficient of Variation 12.9 % (11.5-14.5); RDW Standard Deviation 42.5 fL (36.4-46.3); Red Blood Count 4.36 M/uL (4.7-6.1); White Blood Count 12.21 K/uL (4.8-10.8)
[2021-10-05] MEDS: APIXABAN 5 MG TABLET PO SCH ×2 (07:28→20:56)
[2021-10-05] MEDS: MULTIVITAMIN TAB PO SCH (07:29)
[2021-10-05] MEDS: POLYETHYLENE (MIRALAX) 17 GM PACK PO SCH (07:29)
[2021-10-05] MEDS: DOCUSATE SODIUM/SENNA 50/8.6MG TAB PO SCH (07:29)
[2021-10-05 07:30] LABS: BUN Creatinine Ratio 12.2 (10-20); Calcium 9.3 mg/dl (8.5-10.1); Creatinine Clr Calc Pharmacy 72.2 ml/min; Est GFR (Non-African American) 57.8 ml/min; Magnesium 2.3 mg/dl (1.8-2.4); Potassium 4.1 mmol/L (3.5-5.1)
[2021-10-05] MEDS: ATORVASTATIN 10 MG TAB PO SCH (07:30)
[2021-10-05] MEDS: CALCIUM POLYCARBOPHIL 625MG TAB PO SCH (07:30)
[2021-10-05 07:33] LABS: Albumin Globulin Ratio 0.7 (0.9-2); Bilirubin,Total 0.9 mg/dl (0.2-1); Globulin 4.2 gm/dl (2.5-4.0); Total Protein 7.2 gm/dl (6.4-8.2)
[2021-10-05] MEDS: ACETAMINOPHEN 500 MG TAB PO SCH ×4 (07:37→20:57)
[2021-10-05] MEDS: cefTRIAXone SODIUM 2,000 MG in DEXTROSE 5% 50 ML IV SCH (07:41)
--- NOTE | 2021-10-05 08:03 | Hospitalist Progress Note ---
Date of Service October 05, 2021 Assessment & Plan (1) Acute left flank pain: (2) Hydronephrosis, left: Plan: This is a 60-year-old male who has significant past medical history of PAF anticoagulated on Eliquis, HLD, chronic rhinitis, prediabetes, recent left ingu inal hernia repair 07/10/2021 who presents to ED secondary to left flank pain and left lower quadrant abdominal pain x2 days. CT a/p 10/03: Swelling of the left kidney with perinephric stranding. Mild to moderate left-sided hydronephrosis. However, there is no evidence for hydroureter, renal calculus or ureteral calculus. The findings most likely related to recent passage of a calculus. However, chronic UPJ obstruction cannot be completely excluded based on this single study. US kidney 10/04: Likely mild hydronephrosis on the left with apparent debris, evaluation is limited by patient tolerance Pt continues to be symptomatic with + L CVA tenderness and LLQ pain will admit and request urologic eval admitted to med tele IVF LR @ 125cc/hr strain all urine IV morphine severe pain, oxycodone moderate pain schedule APAP 500mg QID IV Rocephin given leukocytosis and persistent pain, initial urine appears negative but with RBC and protein clear liquid diet, npo Urology consulted, plan for cystoscopy and possible stent placement today (10/05/21) (3) LINDA (acute kidney injury): Plan: baseline cr 0.9-1.0 bun/cr 20 and 1.35 on admission, Cr was 1.57 on 10/03 avoid nephrotoxic agents monitor labs (4) PAF (paroxysmal atrial fibrillation): Plan: hx of PAF x 2, recent episode 07/2021 s/p DCCV continue eliquis not on BB 2/2 to bradycardia monitor on tele DVT ppx: eliquis PCP: Franklyn Nelson FULL CODE Admission and Anticipated Discharge Date Admission Date: October 04, 2021 Subjective Patient seen in follow-up of left flank, left lower quadrant abdominal pain, hydronephrosis Currently laying in bed, in no acute distress Reports overnight had more pain again, and required pain medications Denies dysuria or hematuria Denies fevers or chills however reports nausea/dry heaves with pain Urology consulted, plan for cystoscopy/stent placement Review of Systems Review of Systems: All systems reviewed & are unremarkable except as noted in Subjective Physical Exam Physical Exam: Constitutional: WD/WN, M in NAD Head: Normocephalic, Atraumatic Eyes: PERRL, EOMI, conjunctivae normal, anicteric sclerae ENMT: external ear and nose normal, oropharynx normal Neck: normal visual inspection Respiratory: normal respiratory effort, lungs clear to auscultation, no wheeze, rales, rhonchi. Normal insp/exp effort, no accessory muscle use Cardiovascular: RRR, 1/6 ROMEL RUSB, no edema Vessels: no JVD or carotid bruit Chest: normal inspection of chest Abdomen: normal bowel sounds, soft, + tenderness to LLQ, no rebound, guarding or rigidity, +CVA tenderness on L Musculoskeletal: extremities motor strength 5/5 Skin: no rashes, warm and dry normal turgor Neurologic: PERRL, EOMI, no face palsy, no dysarthria, moves all extremities Psychiatric: A+Ox3, euthymic affect Results & Data Results & Data ([facility]) Vital Signs (Past 12 Hours) Vital Signs Temp Pulse Pulse Resp BP BP Pulse Ox 10/05/21 07:47 36.8 C 58 L 18 166/87 H 94 10/05/21 07:21 56 L 10/05/21 04:00 36.7 C 61 18 157/81 H 93 10/05/21 01:04 62 10/04/21 23:00 36.9 C 58 L 18 179/80 H 93 10/04/21 21:19 156/79 H 10/04/21 20:03 37.2 C 62 18 200/79 H 96 Laboratory Results 10/05/21 10/05/21 10/04/21 Range/Units 06:43 06:43 09:32 WBC 12.21 H (4.8-10.8) K/uL RBC 4.36 L (4.7-6.1) M/uL Hgb 13.7 L (14.0-18.0) g/dL Hct 39.2 L (42-52) % MCV 89.9 (80-100) fL MCH 31.4 (25-34) pg MCHC 34.9 (32-36) g/dL RDW Std Deviation 42.5 (36.4-46.3) fL RDW Coeff of Alicja 12.9 (11.5-14.5) % Plt Count 211 (130-400) K/uL MPV 10.6 H (7.4-10.4) fL Immature Gran % (Auto) 0.1 % Neut % (Auto) 83.7 % Lymph % (Auto) 6.6 % [place] % (Auto) 9.3 % Eos % (Auto) 0.2 % Baso % (Auto) 0.1 % Neut # (Auto) 10.23 H (1.4-6.5) K/uL Lymph # (Auto) 0.80 L (1.2-3.4) K/uL [place] # (Auto) 1.14 H (0.11-0.59) K/uL Eos # (Auto) 0.02 (0-0.5) K/uL Baso # (Auto) 0.01 (0-0.2) K/uL Immature Gran # (Auto) 0.01 (0.00-0.02) K/uL Sodium 134 L (136-145) mmol/L Potassium 4.1 (3.5-5.1) mmol/L Chloride 103 (98-107) mmol/L Carbon Dioxide 26 (21-32) mmol/L Anion Gap 5.0 (3-11) BUN 16 (7-18) mg/dl Creatinine 1.32 (0.6-1.4) mg/dl Est Cr Clr Drug Dosing 72.2 ml/min Est GFR ( Amer) 67.0 ml/min Est GFR (Non-Af Amer) 57.8 ml/min BUN/Creatinine Ratio 12.2 (10-20) Glucose 98 (70-99) mg/dl Calcium 9.3 (8.5-10.1) mg/dl Magnesium 2.3 (1.8-2.4) mg/dl Total Bilirubin 0.9 (0.2-1) mg/dl AST 9 L (15-37) U/L ALT 23 (12-78) U/L Alkaline Phosphatase 70 (45-117) U/L Total Protein 7.2 (6.4-8.2) gm/dl Albumin 3.0 L (3.4-5.0) gm/dl Globulin 4.2 H (2.5-4.0) gm/dl Albumin/Globulin Ratio 0.7 L (0.9-2) Lipase (73-393) U/L Urine Color Urine Appearance (Clear) Urine pH (4.5-7.5) Ur Specific [place] (1.000-1.030) Urine Protein (Negative) Urine Glucose (UA) (Negative) Urine Ketones (Negative) Urine Blood (Negative) Urine Nitrite (Negative) Urine Bilirubin (Negative) Urine Urobilinogen (Negative) Ur Leukocyte Esterase (Negative) Urine WBC (Auto) (0-5) /hpf Urine RBC (Auto) (0-4) /hpf U Hyaline Cast (Auto) (0-5) /lpf U Epithel Cells (Auto) (0-5) /lpf Urine Bacteria (Auto) (Negative) COVID-19 Eval Order SARS-CoV-2 (PCR) NEGATIVE (Negative) 10/04/21 10/04/21 10/04/21 Range/Units 09:32 08:28 08:28 WBC (4.8-10.8) K/uL RBC (4.7-6.1) M/uL Hgb (14.0-18.0) g/dL Hct (42-52) % MCV (80-100) fL MCH (25-34) pg MCHC (32-36) g/dL RDW Std Deviation (36.4-46.3) fL RDW Coeff of Alicja (11.5-14.5) % Plt Count (130-400) K/uL MPV (7.4-10.4) fL Immature Gran % (Auto) % Neut % (Auto) % Lymph % (Auto) % [place] % (Auto) % Eos % (Auto) % Baso % (Auto) % Neut # (Auto) (1.4-6.5) K/uL Lymph # (Auto) (1.2-3.4) K/uL [place] # (Auto) (0.11-0.59) K/uL Eos # (Auto) (0-0.5) K/uL Baso # (Auto) (0-0.2) K/uL Immature Gran # (Auto) (0.00-0.02) K/uL Sodium 136 (136-145) mmol/L Potassium 4.4 (3.5-5.1) mmol/L Chloride 103 (98-107) mmol/L Carbon Dioxide 21 (21-32) mmol/L Anion Gap 11.0 (3-11) BUN 20 H (7-18) mg/dl Creatinine 1.35 (0.6-1.4) mg/dl Est Cr Clr Drug Dosing 70.5 ml/min Est GFR ( Amer) 65.2 ml/min Est GFR (Non-Af Amer) 56.3 ml/min BUN/Creatinine Ratio 15.0 (10-20) Glucose 107 H (70-99) mg/dl Calcium 9.0 (8.5-10.1) mg/dl Magnesium (1.8-2.4) mg/dl Total Bilirubin 1.2 H (0.2-1) mg/dl AST 14 L (15-37) U/L ALT 26 (12-78) U/L Alkaline Phosphatase 70 (45-117) U/L Total Protein 7.7 (6.4-8.2) gm/dl Albumin 3.6 (3.4-5.0) gm/dl Globulin 4.1 H (2.5-4.0) gm/dl Albumin/Globulin Ratio 0.9 (0.9-2) Lipase 71 L (73-393) U/L Urine Color Yellow Urine Appearance Clear (Clear) Urine pH 5.5 (4.5-7.5) Ur Specific [place] 1.021 (1.000-1.030) Urine Protein 1+ H (Negative) Urine Glucose (UA) Negative (Negative) Urine Ketones 1+ H (Negative) Urine Blood 3+ H (Negative) Urine Nitrite Negative (Negative) Urine Bilirubin Negative (Negative) Urine Urobilinogen Negative (Negative) Ur Leukocyte Esterase Negative (Negative) Urine WBC (Auto) 1-5 (0-5) /hpf Urine RBC (Auto) >30 H (0-4) /hpf U Hyaline Cast (Auto) 1-5 (0-5) /lpf U Epithel Cells (Auto) 5-10 H (0-5) /lpf Urine Bacteria (Auto) Negative (Negative) COVID-19 Eval Order Covid19 at [facility] SARS-CoV-2 (PCR) (Negative) 10/04/21 Range/Units 08:28 WBC 14.09 H (4.8-10.8) K/uL RBC 4.64 L (4.7-6.1) M/uL Hgb 14.1 (14.0-18.0) g/dL Hct 41.7 L (42-52) % MCV 89.9 (80-100) fL MCH 30.4 (25-34) pg MCHC 33.8 (32-36) g/dL RDW Std Deviation 41.9 (36.4-46.3) fL RDW Coeff of Alicja 13.0 (11.5-14.5) % Plt Count 220 (130-400) K/uL MPV 10.8 H (7.4-10.4) fL Immature Gran % (Auto) 0.4 % Neut % (Auto) 85.1 % Lymph % (Auto) 5.1 % [place] % (Auto) 9.2 % Eos % (Auto) 0.1 % Baso % (Auto) 0.1 % Neut # (Auto) 12.00 H (1.4-6.5) K/uL Lymph # (Auto) 0.72 L (1.2-3.4) K/uL [place] # (Auto) 1.30 H (0.11-0.59) K/uL Eos # (Auto) 0.01 (0-0.5) K/uL Baso # (Auto) 0.01 (0-0.2) K/uL Immature Gran # (Auto) 0.05 H (0.00-0.02) K/uL Sodium (136-145) mmol/L Potassium (3.5-5.1) mmol/L Chloride (98-107) mmol/L Carbon Dioxide (21-32) mmol/L Anion Gap (3-11) BUN (7-18) mg/dl Creatinine (0.6-1.4) mg/dl Est Cr Clr Drug Dosing ml/min Est GFR ( Amer) ml/min Est GFR (Non-Af Amer) ml/min BUN/Creatinine Ratio (10-20) Glucose (70-99) mg/dl Calcium (8.5-10.1) mg/dl Magnesium (1.8-2.4) mg/dl Total Bilirubin (0.2-1) mg/dl AST (15-37) U/L ALT (12-78) U/L Alkaline Phosphatase (45-117) U/L Total Protein (6.4-8.2) gm/dl Albumin (3.4-5.0) gm/dl Globulin (2.5-4.0) gm/dl Albumin/Globulin Ratio (0.9-2) Lipase (73-393) U/L Urine Color Urine Appearance (Clear) Urine pH (4.5-7.5) Ur Specific [place] (1.000-1.030) Urine Protein (Negative) Urine Glucose (UA) (Negative) Urine Ketones (Negative) Urine Blood (Negative) Urine Nitrite (Negative) Urine Bilirubin (Negative) Urine Urobilinogen (Negative) Ur Leukocyte Esterase (Negative) Urine WBC (Auto) (0-5) /hpf Urine RBC (Auto) (0-4) /hpf U Hyaline Cast (Auto) (0-5) /lpf U Epithel Cells (Auto) (0-5) /lpf Urine Bacteria (Auto) (Negative) COVID-19 Eval Order SARS-CoV-2 (PCR) (Negative) Medications Administered Current Inpatient Medications Acetaminophen (Acetaminophen 500 Mg Tab) 500 mg PO QID [facility] Stop: 11/03/21 12:59 Last Admin: 10/05/21 07:37 Dose: 500 mg Documented by: Acetaminophen (Acetaminophen 325 Mg Tab) 650 mg PO Q4H PRN PRN Reason: Pain or Fever Stop: 11/03/21 14:54 Al Hydrox/Mg Hydrox/Simethicone (Aluminum/Magnesium Susp 30 Ml Udc) 15 ml PO Q4H PRN PRN Reason: Dyspepsia Stop: 11/03/21 14:54 Apixaban (Apixaban 5 Mg Tablet) 5 mg PO BID [facility] Stop: 11/03/21 20:59 Last Admin: 10/05/21 07:28 Dose: 5 mg Documented by: Atorvastatin Calcium (Atorvastatin 10 Mg Tab) 10 mg PO DAILY [facility] Stop: 11/04/21 08:59 Last Admin: 10/05/21 07:30 Dose: 10 mg Documented by: Calcium Polycarbophil (Calcium Polycarbophil 625mg Tab) 1,250 mg PO DAILY [facility] Stop: 11/04/21 08:59 Last Admin: 10/05/21 07:30 Dose: 1,250 mg Documented by: Lactated Ringer's (Lr) 1,000 mls @ 125 mls/hr IV .Q8H [facility] Stop: 11/03/21 10:59 Last Admin: 10/05/21 00:27 Dose: 125 mls/hr Documented by: Ceftriaxone Sodium 2,000 mg/ (Dextrose) 70 mls @ 140 mls/hr IV DAILY [facility]; Protocol Stop: 10/14/21 08:59 Last Admin: 10/05/21 07:41 Dose: 140 mls/hr Documented by: Magnesium Hydroxide (Magnesium Hydroxide Susp 30 Ml Udc) 30 ml PO Q12H PRN PRN Reason: Constipation Stop: 11/03/21 14:54 Morphine Sulfate (Morphine Sulfate 4 Mg/Ml 1 Ml Carp\Vial) 4 mg IV Q4H PRN PRN Reason: severe pain Stop: 10/18/21 14:54 Last Admin: 10/05/21 00:31 Dose: 4 mg Documented by: Multivitamins (Multivitamin Tab) 1 tab PO QAM [facility] Stop: 11/04/21 08:59 Last Admin: 10/05/21 07:29 Dose: 1 tab Documented by: Ondansetron HCl (Ondansetron Inj 2 Mg/Ml 2 Ml Vial) 4 mg IV Q6H PRN PRN Reason: Nausea Stop: 11/03/21 14:54 Last Admin: 10/04/21 20:11 Dose: 4 mg Documented by: Oxycodone HCl (Oxycodone Hcl Ir 5 Mg Tab (Immediate Release)) 5 mg PO Q6H PRN PRN Reason: Moderate Pain Stop: 10/18/21 14:54 Last Admin: 10/04/21 15:51 Dose: 5 mg Documented by: Polyethylene Glycol (Polyethylene (Miralax) 17 Gm Pack) 17 gm PO DAILY PRN PRN Reason: Constipation Stop: 11/03/21 14:54 Polyethylene Glycol (Polyethylene (Miralax) 17 Gm Pack) 17 gm PO DAILY [facility] Stop: 11/04/21 08:59 Last Admin: 10/05/21 07:29 Dose: 17 gm Documented by: Senna/Docusate Sodium (Docusate Sodium/Senna 50/8.6mg Tab) 1 tab PO QAM [facility] Stop: 11/03/21 14:54 Last Admin: 10/05/21 07:29 Dose: 1 tab Documented by:
[2021-10-05] MEDS ORDERED: cefTRIAXone SODIUM 1,000 MG in DEXTROSE 5% 50 ML IV SCH (09:00)
[2021-10-05] MEDS: oxyCODONE HCL IR 5 MG TAB (IMMEDIATE RELEASE) PO PRN (11:45)
--- NOTE | 2021-10-05 12:05 | Urology Consultation ---
Date of Consultation October 05, 2021 Assessment & Plan (1) Acute left flank pain: (2) Hydronephrosis, left: 60 yo M admitted for left flank pain, leukocytosis and hydronephrosis. - Plan of care reviewed with Dr. Calles, urologist fire prevention forester - Pt afebrile, nontoxic, lab work reviewed - creatinine 1.32, WBC 12.21 - He continues to have moderate left flank and abdominal pain intermittently - CTAP reviewed and notable for swelling of left kidney with perinephric stranding, moderate left hydronephrosis suggestive of possible UPJ obstruction vs hydronephrosis from infection/pyelonephritis - No urine culture on chart - Continue empiric IV Ceftriaxone per primary service - Continue antibiotics, supportive care and medical management per primary service - Discussed treatment options including observation vs placement of left ureteral stent while inpatient - After further discussion, patient would like to proceed with surgical intervention - Reviewed with Dr. Calles. Given left flank pain in the context of left hydronephrosis, will proceed with OR with cystoscopy, left retrograde pyelogram, possible left ureteroscopy, and left stent placement - OR notified - He is agreeable to the plan, all questions answered - Risks and benefits to be reviewed with patient by Dr. Calles - Will cover with IV Ceftriaxone preoperatively - Keep NPO for procedure - Please consult our service urgently if patient develops fever >101F, intractable pain or nausea, as this will necessitate urgent surgical intervention. Thank you for the consultation and we will continue to monitor closely with primary service. ATTENDING NOTE: Agree with above. Independently evaluated, reviewed, assessed, and examined. Agree with plan. Inflammation of the kidney and proximal ureter with hydronephrosis. Moderate chronic illnesses with CKD. Stablizing with hydration and supportive care during the admission. Risks and benefits discussed at length for procedure. These include bleeding, infection, injury to surrounding tissues or organs, and risks associated with anesthesia. Patient states understanding and agrees to proceed. Will sign consent and proceed with cystoscopy and left stent. History of Present Illness Reason for Consultation: Left hydronephrosis Requesting Physician: Dr. Love Attending Physician: Elie Love MD History of Present Illness 60 yo M with past medical history of PAF anticoagulated on Eliquis, HLD, chronic rhinitis, prediabetes, recent left inguinal hernia repair 07/10/2021, and hypertension admitted for left flank pain, leukocytosis and hydronephrosis. Patient initially presented to [facility] ED on 10/03/21 for left flank and abdominal pain. Afebrile on arrival. Lab work reviewed and showed creatinine 1.57, WBC 14.18. No urine culture collected. CTAP wo contrast showed swelling of the left kidney with perinephric stranding. Mild to moderate left-sided hydronephrosis without evidence for hydroureter, renal calculus or ureteral calculus; suggestive of recently passed stone vs infection vs UPJ obstruction. He was treated with IV fluids, Morphine, Oxycodone and Ondansetron. He was discharged to home with oxycodone. He returned to [facility] ED on 10/04 with persistent left flank pain. Afebrile on arrival. Lab work showed creatinine 1.35, WBC 14.09. UA > 30 RBCs, 1-5 WBCs, 5- 10 epithelials, and negative bacteria. No urine culture collected. WALT showed likely mild hydronephrosis on the left with apparent debris, evaluation is limited by patient tolerance. He was treated with IV Ceftriaxone, Morphine and IV fluids. He was admitted to hospital medicine service. Urology service is consulted for left hydronephrosis. He remains afebrile. Lab work reviewed - creatinine 1.32, WBC 12.21, Hgb 13.7. Currently on IV Ceftriaxone. Patient seen and examined at bedside this AM. He is awake, alert and sitting up in bed. Continues to have left sided flank and abdominal pain, currently tolerable. No nausea or vomiting at present. Notes dry heaves when pain becomes severe. Voiding without difficulty. No dysuria or hematuria. No fever or chills. He is NPO since midnight. No prior urology evaluations. No prior stone history. Denies known stone passage. Reports possible family history of stones - father. No additional concerns today. Allergies Allergy/AdvReac Type Severity Reaction Status Date / Time No Known Allergies Allergy Unverified 01/08/16 08:41 Home Medications Medication Instructions Recorded Confirmed Type acetaminophen 650 mg 1,300 mg PO DAILY 07/22/21 10/04/21 History tablet,extended release atorvastatin 10 mg tablet 10 mg PO DAILY 07/22/21 10/04/21 History calcium polycarbophil 625 mg 1,250 mg PO DAILY 07/22/21 10/04/21 History tablet (FiberCon) multivitamin 1 tab PO DAILY 07/22/21 10/04/21 History apixaban 5 mg tablet (Eliquis) 5 mg PO BID #60 tab 07/24/21 10/04/21 Rx oxycodone 5 mg tablet 5 mg PO Q6H PRN #14 tab 10/03/21 10/04/21 Rx Patient History Medical History Chronic rhinitis Elevated blood pressure, situational Hypercholesteremia PAF (paroxysmal atrial fibrillation) Pre-diabetes a1c 5.9 05/04/21 Surgical History H/O colonoscopy "diverticulosis repeat in 10 years 06/03/15" H/O foot surgery "neuroma x 2 excised" Hx of inguinal hernia surgery 07/10/21 - Dr. donaldson Family History Grandfather (Maternal) Coronary heart disease Grandfather (Paternal) Coronary heart disease Mother CHF (congestive heart failure) Social History Smoking Status: Never smoker Tobacco Type: Cigarettes packs per day: 0.5; Years Smoked: 4; Second Hand Exposure: No; Do You Dip or Chew Tobacco: No; Tobacco Cessation Education Requested by Patient: No Hx Alcohol Use: Yes Alcohol type: beer Alcohol Intake Frequency: Monthly or Less Hx Substance Use: No Preferred Language: Nepalese Communication Ability: Effective Cooperative Extension Agent Required: No Beliefs That Will Affect Care: None marital status: Current Living Situation: Spouse Other Information That Helps Us Care for You: No Feels Safe at Home: Yes Safety Concerns: Feels Safe At This Time Assistive Devices: None Review of Systems Constitutional: as per Subjective / HPI Respiratory: no dyspnea Cardiovascular: no chest pain Gastrointestinal: as per Subjective / HPI Genitourinary: + as per Subjective / HPI Musculoskeletal: no problem reported Integumentary: no problem reported Physical Exam Constitutional: well developed and well nourished; no acute distress and not ill appearing Respiratory: normal respiratory effort and able to speak in complete sentences; no respiratory distress and no labored breathing Cardiovascular: Extremities: no pedal edema Gastrointestinal (Abdomen): Inspection/Auscultation: abdomen normal to inspection; abdomen not distended Percussion/Palpation: + abdomen tender (mildly tender to palpation in left lower quadrant) and abdomen soft; no guarding Neurologic: moves all extremities and awake Psychiatric: Orientation: alert, oriented x 3 and cooperative Genitourinary: Mild tenderness to palpation over left flank Results & Data ([facility]) Vital Signs (Past 12 Hours) Vital Signs Temp Pulse Pulse Resp BP BP Pulse Ox 10/05/21 11:35 36.5 C 55 L 16 185/87 H 94 10/05/21 07:47 36.8 C 58 L 18 166/87 H 94 10/05/21 07:21 56 L 10/05/21 04:00 36.7 C 61 18 157/81 H 93 10/05/21 01:04 62 PG Care Time/CCT Total # of Minutes Spent Total Time Spent with Patient: Total time spent is greater than 50% in coordination of care (as documented) at patient's floor/unit and/or counseling patient: Coding Level of Care Code 81900 Inpt Consult Level 3 Diagnoses Acute left flank pain R10.9 Hydronephrosis, left N13.30
--- NOTE | 2021-10-05 14:04 | Anesthesiology Consultation ---
Date of Service October 05, 2021 Assessment & Plan (1) Encounter for pre-operative examination: Chart Review Chart Review: Acceptable Risk for Surgery and Patient NOT seen in Pre Admission Testing Covid neg 10/04/21 Consults Requested none History Surgery Operation Date: 10/05/21 14:10 Proposed Procedures p Cysto, Left Retrograde Pyelogram, Possible Ureteroscopy, Left Stent Insertion - Patrick Calles, DO Height/Weight Height: 6 ft 4 in Weight: 102 kg Allergies Allergy/AdvReac Type Severity Reaction Status Date / Time No Known Allergies Allergy Unverified 01/08/16 08:41 Medications Home Medications Medication Instructions Recorded Confirmed Last Taken acetaminophen 650 mg 1,300 mg PO DAILY 07/22/21 10/04/21 10/04/21 06:00 tablet,extended release atorvastatin 10 mg tablet 10 mg PO DAILY 07/22/21 10/04/21 10/03/21 calcium polycarbophil 625 mg 1,250 mg PO DAILY 07/22/21 10/04/21 10/03/21 tablet (FiberCon) multivitamin 1 tab PO DAILY 07/22/21 10/04/21 10/03/21 apixaban 5 mg tablet (Eliquis) 5 mg PO BID #60 tab 07/24/21 10/04/21 10/03/21 oxycodone 5 mg tablet 5 mg PO Q6H PRN #14 tab 10/03/21 10/04/21 10/04/21 02:00 Active Medications Generic Name Dose Route Start Last Admin Trade Name Freq PRN Reason Stop Dose Admin Acetaminophen 500 mg 10/04/21 13:00 10/05/21 13:50 Acetaminophen 500 Mg Tab PO 11/03/21 12:59 Not Given QID MINA Apixaban 5 mg 10/04/21 21:00 10/05/21 07:28 Apixaban 5 Mg Tablet PO 11/03/21 20:59 5 mg BID MINA Administration Atorvastatin Calcium 10 mg 10/05/21 09:00 10/05/21 07:30 Atorvastatin 10 Mg Tab PO 11/04/21 08:59 10 mg DAILY MINA Administration Calcium Polycarbophil 1,250 mg 10/05/21 09:00 10/05/21 07:30 Calcium Polycarbophil 625mg Tab PO 11/04/21 08:59 1,250 mg DAILY MINA Administration Lactated Ringer's 1,000 mls @ 125 mls/hr 10/04/21 11:00 10/05/21 11:27 Lr IV 11/03/21 10:59 125 mls/hr .Q8H MINA Administration Ceftriaxone Sodium 2,000 mg/ 70 mls @ 140 mls/hr 10/05/21 09:00 10/05/21 08:15 Dextrose IV 10/14/21 08:59 Infused DAILY MINA Infusion Protocol Morphine Sulfate 4 mg 10/04/21 14:55 10/05/21 12:24 Morphine Sulfate 4 Mg/Ml 1 Ml Carp\\Vial IV 10/18/21 14:54 4 mg Q4H PRN Administration severe pain Multivitamins 1 tab 10/05/21 09:00 10/05/21 07:29 Multivitamin Tab PO 11/04/21 08:59 1 tab QAM MINA Administration Ondansetron HCl 4 mg 10/04/21 14:55 10/04/21 20:11 Ondansetron Inj 2 Mg/Ml 2 Ml Vial IV 11/03/21 14:54 4 mg Q6H PRN Administration Nausea Oxycodone HCl 5 mg 10/04/21 14:55 10/05/21 11:45 Oxycodone Hcl Ir 5 Mg Tab (Immediate Release) PO 10/18/21 14:54 5 mg Q6H PRN Administration Moderate Pain Polyethylene Glycol 17 gm 10/05/21 09:00 10/05/21 07:29 Polyethylene (Miralax) 17 Gm Pack PO 11/04/21 08:59 17 gm DAILY MINA Administration Senna/Docusate Sodium 1 tab 10/04/21 14:55 10/05/21 07:29 Docusate Sodium/Senna 50/8.6mg Tab PO 11/03/21 14:54 1 tab QAM MINA Administration Past Medical History Medical History Chronic rhinitis Elevated blood pressure, situational Hypercholesteremia PAF (paroxysmal atrial fibrillation) Pre-diabetes a1c 5.9 05/04/21 Past Family History Family History Grandfather (Maternal) Coronary heart disease Grandfather (Paternal) Coronary heart disease Mother CHF (congestive heart failure) Past Surgical History Surgical History H/O colonoscopy "diverticulosis repeat in 10 years 06/03/15" H/O foot surgery "neuroma x 2 excised" Hx of inguinal hernia surgery 07/10/21 - Dr. donaldson UDAY/cardioversion 07/23/21. Tolerated propofol without incident. Successful cardioversion. Social History Smoking Status: Never smoker Do You Dip or Chew Tobacco: No Hx Alcohol Use: Yes Alcohol type: beer Hx Substance Use: No substance use type: does not use Physical Exam Vital Signs Last Vital Signs Temp 36.4 C L 10/05/21 14:05 Pulse 61 10/05/21 14:05 Resp 18 10/05/21 14:05 BP 168/102 H 10/05/21 14:05 Pulse Ox 94 10/05/21 14:05 Testing Laboratory Results 10/05/21 06:43 10/05/21 06:43 Urine Color Yellow 10/04/21 08:28 Urine Appearance Clear (Clear) 10/04/21 08:28 Urine pH 5.5 (4.5-7.5) 10/04/21 08:28 Ur Specific [place] 1.021 (1.000-1.030) 10/04/21 08:28 Urine Protein 1+ (Negative) H 10/04/21 08:28 Urine Glucose (UA) Negative (Negative) 10/04/21 08:28 Urine Ketones 1+ (Negative) H 10/04/21 08:28 Urine Nitrite Negative (Negative) 10/04/21 08:28 Ur Leukocyte Esterase Negative (Negative) 10/04/21 08:28 Urine WBC (Auto) 1-5 /hpf (0-5) 10/04/21 08:28 Urine RBC (Auto) >30 /hpf (0-4) H 10/04/21 08:28 U Hyaline Cast (Auto) 1-5 /lpf (0-5) 10/04/21 08:28 U Epithel Cells (Auto) 5-10 /lpf (0-5) H 10/04/21 08:28 Urine Bacteria (Auto) Negative (Negative) 10/04/21 08:28 Electrocardiogram Date: 07/23/21 DICTATED BY:Bull Reyes MD Test Reason : Blood Pressure : / mmHG Vent. Rate : 052 BPM Atrial Rate : 052 BPM P-R Int : 164 ms QRS Dur : 092 ms QT Int : 442 ms P-R-T Axes : 037 039 060 degrees QTc Int : 411 ms Sinus bradycardia Otherwise normal ECG When compared with ECG of 23-JUL-2021 08:19, No significant change was found Confirmed by Bull Reyes ([id number]) on 07/25/2021 6:39:45 AM
[2021-10-05] MEDS ORDERED: LIDOCAINE 2% 2 ML VIAL/AMP(20MG/ML) INFIL ONE (14:11)
[2021-10-05] MEDS ORDERED: PROPOFOL IV EMULSION 10 MG/ML 20 ML VIAL IV ONE ×2 (14:11→14:55)
[2021-10-05] MEDS ORDERED: MIDAZOLAM HCL 1 MG/ML 2ML VIAL ONE (14:12)
[2021-10-05] MEDS ORDERED: fentaNYL citrate 100 MCG/2 ML VIAL ONE (14:12)
--- NOTE | 2021-10-05 15:05 | Operative Report ---
PG Post Operative Report Pre & Post Diagnosis Operation Date: 10/05/21 14:10 Pre-Op Diagnosis: Hydronephrosis. Post-Op Diagnosis: Hydronephrosis. I identified the patient and participated in the time-out.: Yes Procedure Operation Date: 10/05/21 14:10 Actual Procedures p Cysto with Left Urine Aspiration/cytology, ureteral dilation, Retrograde Pyelogram,and Left Stent Insertion - Patrick Calles, Surgeon Patrick Calles, II, DO Equal Opportunity Representative None Estimated Blood Loss 1 Findings Consistent with Post-Op Diagnosis Stent placed in good position. Significant debris and blood in left renal pelvis. Stricture of UO dilated. Specimens Urine left renal pelvis for cytology and culture. Drains 6 Fr Multilength Anesthesia Type MAC Complications none Disposition Disposition: Recovery Room Indications Patient with obstruction. Risks and benefits discussed at length. Description of Procedure Patient was consented and brought back to the operating room. Patient was placed under anesthesia in the supine position and moved to the dorsal lithotomy position. Patient was prepped and draped in the regular sterile fashion. A time out was completed. A 30degree Cystoscope was placed into the bladder and the entire bladder was examined. The UO's were identified. The UO was cannulized with a catheter, the UO was dilated due to stricture /narrowing, urine was aspirated and sent for culture and cytology and a retrograde pyelogram was completed. A wire was then placed. With the wire in place, a 6 Fr Double J stent was placed. It was confirmed with fluoroscopy. With the stent in place, the bladder was emptied. The scope was removed. The patient was cleaned, aroused from anesthesia, and transferred to the pacu in stable condition having tolerated the procedure well with no complications. I was present and participated in all aspects of the procedure. The patient will be monitored in the PACU until transferred. Plan to maintain stent for 2-3 weeks. Will likely need Ureteroscopy at some point to reassess and determine source of blood. Will likely need 10-14 days of antibiotics. Followup in office. I attest to the content of the Intraoperative Record and any orders documented therein. Any exceptions are noted below.
[2021-10-05] MEDS ORDERED: DIATRIZOATE MEGLUMINE 30% 100ML VIAL INSTIL PRN (15:19)
--- NOTE | 2021-10-05 15:34 | Fluoroscopy Report ---
FL retrograde includes kub CLINICAL HISTORY: Left ureteral stent placement COMPARISON STUDY: None. FLUOROSCOPY TIME: 19 seconds. FINDINGS: 2 fluoroscopic spot images of the abdomen and pelvis demonstrate a left ureteral stent whic h appears in good position. IMPRESSION: Fluoroscopic assistance provided for left ureteral stent placement. ACT 112: Negative or not required by law. Electronically signed by: Senthil Diaz M.D. 10/05/2021 3:33 PM
--- NOTE | 2021-10-05 15:58 | Anesthesiology Progress Note ---
Date of Service October 05, 2021 Anesthesia Post Procedure Vital Signs Vital Signs: Temp Pulse Pulse Pulse Resp BP BP 10/05/21 15:25 37.0 C 59 L 18 147/73 H 10/05/21 15:15 64 19 134/63 10/05/21 15:09 36.5 C 64 14 128/57 L 10/05/21 14:05 36.4 C L 61 18 168/102 H 10/05/21 11:35 36.5 C 55 L 16 185/87 H 10/05/21 07:47 36.8 C 58 L 18 166/87 H 10/05/21 07:21 56 L 10/05/21 04:00 36.7 C 61 18 157/81 H 10/05/21 01:04 62 10/04/21 23:00 36.9 C 58 L 18 179/80 H 10/04/21 21:19 156/79 H 10/04/21 20:03 37.2 C 62 18 200/79 H 10/04/21 16:23 61 Pulse Ox 10/05/21 15:25 98 10/05/21 15:15 99 10/05/21 15:09 98 10/05/21 14:05 94 10/05/21 11:35 94 10/05/21 07:47 94 10/05/21 07:21 10/05/21 04:00 93 10/05/21 01:04 10/04/21 23:00 93 10/04/21 21:19 10/04/21 20:03 96 10/04/21 16:23 Pain Intensity Flank: Pain Intensity: 5 Transfer of Care Handoff Completed per policy Notes Mental Status: alert / awake / arousable and participated in evaluation Patient Amnestic to Procedure: Yes Nausea / Vomiting: adequately controlled Pain: adequately controlled Airway Patency, RR, SpO2: stable & adequate BP & HR: stable & adequate Hydration State: stable & adequate Anesthetic Complications: no major complications apparent and Pt Satisfied with anesthetic care
[2021-10-06] MEDS: LACTATED RINGER'S 1,000 ML IV SCH ×2 (03:17→11:32)
[2021-10-06 06:56] LABS: Basophils # (auto) 0.01 K/uL (0-0.2); Basophils % (auto) 0.1 %; Eosinophils # (auto) 0.08 K/uL (0-0.5); Eosinophils % (auto) 0.9 %; Hematocrit (blood only) 37.8 % (42-52); Hemoglobin 12.6 g/dL (14.0-18.0); Immature Granulocytes # (auto) 0.01 K/uL (0.00-0.02); Immature Granulocytes % (auto) 0.1 %; Lymphocytes # (auto) 0.95 K/uL (1.2-3.4); Lymphocytes % (auto) 10.3 %; Mean Corpuscular Hemoglobin 30.3 pg (25-34); Mean Corpuscular Hgb Conc 33.3 g/dL (32-36); Mean Corpuscular Volume 90.9 fL (80-100); Mean Platelet Volume 10.6 fL (7.4-10.4); Monocytes # (auto) 0.82 K/uL (0.11-0.59); Monocytes % (auto) 8.9 %; Neutrophils # (auto) 7.34 K/uL (1.4-6.5); Neutrophils % (auto) 79.7 %; Platelet Count 220 K/uL (130-400); RDW Coefficient of Variation 12.9 % (11.5-14.5); RDW Standard Deviation 43.2 fL (36.4-46.3); Red Blood Count 4.16 M/uL (4.7-6.1); White Blood Count 9.21 K/uL (4.8-10.8)
[2021-10-06] MEDS: MULTIVITAMIN TAB PO SCH (07:06)
[2021-10-06] MEDS: CALCIUM POLYCARBOPHIL 625MG TAB PO SCH (07:07)
[2021-10-06] MEDS: DOCUSATE SODIUM/SENNA 50/8.6MG TAB PO SCH (07:07)
[2021-10-06] MEDS: ATORVASTATIN 10 MG TAB PO SCH (07:07)
[2021-10-06] MEDS: APIXABAN 5 MG TABLET PO SCH (07:07)
[2021-10-06] MEDS: POLYETHYLENE (MIRALAX) 17 GM PACK PO SCH (07:07)
[2021-10-06] MEDS: cefTRIAXone SODIUM 2,000 MG in DEXTROSE 5% 50 ML IV SCH (07:07)
[2021-10-06] MEDS: ACETAMINOPHEN 500 MG TAB PO SCH ×2 (07:12→13:38)
[2021-10-06 07:26] LABS: Albumin Level 2.7 gm/dl (3.4-5.0); BUN Creatinine Ratio 12.1 (10-20); Calcium 9.1 mg/dl (8.5-10.1); Creatinine Clr Calc Pharmacy 91.3 ml/min; Est GFR (African American) 78.3 ml/min; Est GFR (Non-African American) 67.6 ml/min; Magnesium 2.3 mg/dl (1.8-2.4); Potassium 3.9 mmol/L (3.5-5.1)
[2021-10-06 07:29] LABS: Albumin Globulin Ratio 0.6 (0.9-2); Bilirubin,Total 0.6 mg/dl (0.2-1); Globulin 4.2 gm/dl (2.5-4.0); Total Protein 6.9 gm/dl (6.4-8.2)
--- NOTE | 2021-10-06 11:26 | Hospitalist Progress Note ---
Date of Service October 06, 2021 Assessment & Plan (1) Acute left flank pain: (2) Hydronephrosis, left: Plan: This is a 60-year-old male who has significant past medical history of PAF anticoagulated on Eliquis, HLD, chronic rhinitis, prediabetes, recent left ingu inal hernia repair 07/10/2021 who presents to ED secondary to left flank pain and left lower quadrant abdominal pain x2 days. CT a/p 10/03: Swelling of the left kidney with perinephric stranding. Mild to moderate left-sided hydronephrosis. However, there is no evidence for hydroureter, renal calculus or ureteral calculus. The findings most likely related to recent passage of a calculus. However, chronic UPJ obstruction cannot be completely excluded based on this single study. US kidney 10/04: Likely mild hydronephrosis on the left with apparent debris, evaluation is limited by patient tolerance Pt continues to be symptomatic with + L CVA tenderness and LLQ pain will admit and request urologic eval admitted to med tele IVF LR @ 125cc/hr strain all urine IV morphine severe pain, oxycodone moderate pain schedule APAP 500mg QID IV Rocephin given leukocytosis and persistent pain, initial urine appears negative but with RBC and protein clear liquid diet, npo Urology consulted, now pt s/p cystoscopy and L stent placement (10/05/21) w/ Dr. Calles Significant debris and blood in left renal pelvis noted during procedure. Stricture of UO dilated. -Pt Tolerated procedure well -Plan to maintain stent for 2-3 weeks. Will likely need Ureteroscopy at some point to reassess and determine source of blood. -Urology recommends 2 weeks of antibiotics -Urine culture is pending, follow-up as outpatient -Followup w/ urology as outpt (3) LINDA (acute kidney injury): Plan: baseline cr 0.9-1.0 bun/cr 20 and 1.35 on admission, Cr was 1.57 on 10/03 avoid nephrotoxic agents monitor labs current Cr 1.2 (10/06) -resolved (4) PAF (paroxysmal atrial fibrillation): Plan: hx of PAF x 2, recent episode 07/2021 s/p DCCV continue eliquis not on BB 2/ to bradycardia monitor on tele DVT ppx: eliquis PCP: Dr. Franklyn Nelson FULL CODE Admission and Anticipated Discharge Date Admission Date: October 05, 2021 Subjective Patient seen in follow-up of left flank, left lower quadrant abdominal pain, hydronephrosis Currently laying in bed, in no acute distress Underwent cystoscopy and stent placement yesterday, tolerated procedure well Denies fevers or chills, chest pain, shortness of breath, abdominal pain Tells me he is urinating without difficulty, having BMs, ambulating without difficulty as well Denies any headache, or palpitations or dizziness Review of Systems Review of Systems: All systems reviewed & are unremarkable except as noted in Subjective Physical Exam Physical Exam: Constitutional: WD/WN, M in NAD Head: Normocephalic, Atraumatic Eyes: PERRL, EOMI, conjunctivae normal, anicteric sclerae ENMT: external ear and nose normal, oropharynx normal Neck: normal visual inspection Respiratory: normal respiratory effort, lungs clear to auscultation, no wheeze, rales, rhonchi. Normal insp/exp effort, no accessory muscle use Cardiovascular: RRR, 1/6 ROMEL RUSB, no edema Vessels: no JVD or carotid bruit Chest: normal inspection of chest Abdomen: normal bowel sounds, soft, no tenderness to palpation (resolved), guarding or rigidity, no CVA tenderness (resolved0 Musculoskeletal: extremities motor strength 5/5 Skin: no rashes, warm and dry normal turgor Neurologic: PERRL, EOMI, no face palsy, no dysarthria, moves all extremities Psychiatric: A+Ox3, euthymic affect Results & Data Results & Data ([facility]) Vital Signs (Past 12 Hours) Vital Signs Temp Pulse Pulse Pulse Resp BP BP 10/06/21 07:27 57 L 10/06/21 07:15 36.7 C 57 L 18 168/82 H 10/06/21 04:55 36.6 C 60 18 172/79 H Pulse Ox 10/06/21 07:27 10/06/21 07:15 92 10/06/21 04:55 94 Laboratory Results 10/06/21 10/06/21 Range/Units 06:38 06:38 WBC 9.21 (4.8-10.8) K/uL RBC 4.16 L (4.7-6.1) M/uL Hgb 12.6 L (14.0-18.0) g/dL Hct 37.8 L (42-52) % MCV 90.9 (80-100) fL MCH 30.3 (25-34) pg MCHC 33.3 (32-36) g/dL RDW Std Deviation 43.2 (36.4-46.3) fL RDW Coeff of Alicja 12.9 (11.5-14.5) % Plt Count 220 (130-400) K/uL MPV 10.6 H (7.4-10.4) fL Immature Gran % (Auto) 0.1 % Neut % (Auto) 79.7 % Lymph % (Auto) 10.3 % [place] % (Auto) 8.9 % Eos % (Auto) 0.9 % Baso % (Auto) 0.1 % Neut # (Auto) 7.34 H (1.4-6.5) K/uL Lymph # (Auto) 0.95 L (1.2-3.4) K/uL [place] # (Auto) 0.82 H (0.11-0.59) K/uL Eos # (Auto) 0.08 (0-0.5) K/uL Baso # (Auto) 0.01 (0-0.2) K/uL Immature Gran # (Auto) 0.01 (0.00-0.02) K/uL Sodium 136 (136-145) mmol/L Potassium 3.9 (3.5-5.1) mmol/L Chloride 103 (98-107) mmol/L Carbon Dioxide 28 (21-32) mmol/L Anion Gap 5.0 (3-11) BUN 14 (7-18) mg/dl Creatinine 1.16 (0.6-1.4) mg/dl Est Cr Clr Drug Dosing 91.3 ml/min Est GFR ( Amer) 78.3 ml/min Est GFR (Non-Af Amer) 67.6 ml/min BUN/Creatinine Ratio 12.1 (10-20) Glucose 102 H (70-99) mg/dl Calcium 9.1 (8.5-10.1) mg/dl Magnesium 2.3 (1.8-2.4) mg/dl Total Bilirubin 0.6 (0.2-1) mg/dl AST 18 (15-37) U/L ALT 30 (12-78) U/L Alkaline Phosphatase 81 (45-117) U/L Total Protein 6.9 (6.4-8.2) gm/dl Albumin 2.7 L (3.4-5.0) gm/dl Globulin 4.2 H (2.5-4.0) gm/dl Albumin/Globulin Ratio 0.6 L (0.9-2) Medications Administered Current Inpatient Medications Acetaminophen (Acetaminophen 500 Mg Tab) 500 mg PO QID MINA Stop: 11/03/21 12:59 Last Admin: 10/06/21 07:12 Dose: 500 mg Documented by: Acetaminophen (Acetaminophen 325 Mg Tab) 650 mg PO Q4H PRN PRN Reason: Pain or Fever Stop: 11/03/21 14:54 Al Hydrox/Mg Hydrox/Simethicone (Aluminum/Magnesium Susp 30 Ml Udc) 15 ml PO Q4H PRN PRN Reason: Dyspepsia Stop: 11/03/21 14:54 Apixaban (Apixaban 5 Mg Tablet) 5 mg PO BID MINA Stop: 11/03/21 20:59 Last Admin: 10/06/21 07:07 Dose: 5 mg Documented by: Atorvastatin Calcium (Atorvastatin 10 Mg Tab) 10 mg PO DAILY MINA Stop: 11/04/21 08:59 Last Admin: 10/06/21 07:07 Dose: 10 mg Documented by: Calcium Polycarbophil (Calcium Polycarbophil 625mg Tab) 1,250 mg PO DAILY MINA Stop: 11/04/21 08:59 Last Admin: 10/06/21 07:07 Dose: 1,250 mg Documented by: Diatrizoate Meglumine (Diatrizoate Meglumine 30% 100ml Vial) 100 ml INSTIL UD PRN PRN Reason: Radiology Use Stop: 10/09/21 15:18 Last Admin: 10/05/21 15:21 Dose: 7 ml Documented by: Lactated Ringer's (Lr) 1,000 mls @ 125 mls/hr IV .Q8H MINA Stop: 11/03/21 10:59 Last Admin: 10/06/21 03:17 Dose: 125 mls/hr Documented by: Ceftriaxone Sodium 2,000 mg/ (Dextrose) 70 mls @ 140 mls/hr IV DAILY MINA; Protocol Stop: 10/14/21 08:59 Last Infusion: 10/06/21 07:51 Dose: Infused Documented by: Magnesium Hydroxide (Magnesium Hydroxide Susp 30 Ml Udc) 30 ml PO Q12H PRN PRN Reason: Constipation Stop: 11/03/21 14:54 Morphine Sulfate (Morphine Sulfate 4 Mg/Ml 1 Ml Carp\Vial) 4 mg IV Q4H PRN PRN Reason: severe pain Stop: 10/18/21 14:54 Last Admin: 10/05/21 12:24 Dose: 4 mg Documented by: Multivitamins (Multivitamin Tab) 1 tab PO QAM [facility] Stop: 11/04/21 08:59 Last Admin: 10/06/21 07:06 Dose: 1 tab Documented by: Ondansetron HCl (Ondansetron Inj 2 Mg/Ml 2 Ml Vial) 4 mg IV Q6H PRN PRN Reason: Nausea Stop: 11/03/21 14:54 Last Admin: 10/04/21 20:11 Dose: 4 mg Documented by: Oxycodone HCl (Oxycodone Hcl Ir 5 Mg Tab (Immediate Release)) 5 mg PO Q6H PRN PRN Reason: Moderate Pain Stop: 10/18/21 14:54 Last Admin: 10/05/21 11:45 Dose: 5 mg Documented by: Polyethylene Glycol (Polyethylene (Miralax) 17 Gm Pack) 17 gm PO DAILY PRN PRN Reason: Constipation Stop: 11/03/21 14:54 Polyethylene Glycol (Polyethylene (Miralax) 17 Gm Pack) 17 gm PO DAILY [facility] Stop: 11/04/21 08:59 Last Admin: 10/06/21 07:07 Dose: 17 gm Documented by: Senna/Docusate Sodium (Docusate Sodium/Senna 50/8.6mg Tab) 1 tab PO QAM [facility] Stop: 11/03/21 14:54 Last Admin: 10/06/21 07:07 Dose: 1 tab Documented by:
--- NOTE | 2021-10-06 12:24 | Discharge Summary ---
Date of Service October 06, 2021 Admission HPI Per Admitting Provider This is a 60-year-old male who has significant past medical history of PAF anticoagulated on Eliquis, HLD, chronic rhinitis, prediabetes, recent left inguinal hernia repair 07/10/2021 who presents to ED secondary to left flank pain and left lower quadrant abdominal pain x2 days. Symptoms initially started early Tuesday morning when he experienced left flank pain that would wax and wane, nothing made better or worse, never experienced in the past and associated with vomiting and dry heaves. Symptoms persisted and he opted to be evaluated in ED on Tuesday. During evaluation he did have mild leukocytosis at 14k , LINDA with creatinine 1.[address] scan abdomen pelvis revealed swelling of left kidney with perinephric stranding, mild to moderate left hydronephrosis without evidence of hydroureter, renal calculus or ureteral calculus. He was treated with IV fluids, antiemetics and analgesics and was discharged home. When he got home symptoms slowly started to return and he also complained of lower quadrant pain. He was concerned he could have something to do with his recent hernia repair. He denies any fever, chills, sweats, lightheadedness, dizziness, headache, chest pain, shortness of breath, URI symptoms, dysuria, increased urgency or frequency with urination, melena or hematochezia. His last bowel movement was yesterday and felt he was more constipated, but denies diarrhea. He does complain of nocturia but associated this with age. In ED patient remained hemodynamically stable. He continued to have mild leukocytosis and minimal improvement in creatinine of 1.3. His urinalysis was consistent with proteinuria and RBCs, but bacteria negative. Ultrasound revealed hydronephrosis with apparent left debris. He received IVF, IV Rocephin, and IV analgesia in ED. Admission Exam Per Admitting Provider Constitutional: WD/WN, M, vitals as above, NAD, sitting up in bed, pleasant, conversing easily Head: Normocephalic, Atraumatic Eyes: PERRL, conjunctivae normal, anicteric sclerae ENMT: external ear and nose normal, oropharynx normal Neck: trachea midline, no thyromegaly normal visual inspection Respiratory: normal respiratory effort, lungs clear to auscultation, no wheeze, rales, rhonchi. Normal insp/exp effort, no accessory muscle use Cardiovascular: RRR, 1/6 ROMEL RUSB, no edema Vessels: no JVD or carotid bruit Chest: normal inspection of chest Abdomen: normal bowel sounds, soft, + tenderness to LLQ, no rebound, guarding or rigidity, +CVA tenderness on L, no hepatosplenomegaly Musculoskeletal: no cyanosis or clubbing, extremities motor strength 5/5 Skin: no rashes, warm and dry normal turgor Neurologic: PERRL, EOMI, accommodation nl, no face palsy, no dysarthria CN's II-XI intact bilaterally and moves all extremities Psychiatric: A+Ox3, euthymic affect Principal Diagnosis Left flank pain/left lower quadrant abdominal pain, hydronephrosis LINDA Discharge Exam Constitutional: WD/WN, M in NAD Head: Normocephalic, Atraumatic Eyes: PERRL, EOMI, conjunctivae normal, anicteric sclerae ENMT: external ear and nose normal, oropharynx normal Neck: normal visual inspection Respiratory: normal respiratory effort, lungs clear to auscultation, no wheeze, rales, rhonchi. Normal insp/exp effort, no accessory muscle use Cardiovascular: RRR, 1/6 ROMEL RUSB, no edema Vessels: no JVD or carotid bruit Chest: normal inspection of chest Abdomen: normal bowel sounds, soft, no tenderness to palpation (resolved), guarding or rigidity, no CVA tenderness (resolved0 Musculoskeletal: extremities motor strength 5/5 Skin: no rashes, warm and dry normal turgor Neurologic: PERRL, EOMI, no face palsy, no dysarthria, moves all extremities Psychiatric: A+Ox3, euthymic affect Discharge Data Allergies Allergy/AdvReac Type Severity Reaction Status Date / Time No Known Allergies Allergy Unverified 01/08/16 08:41 Consultations 10/04/21 09:37 ED Decision to Admit Stat 10/04/21 10:21 Consult Urology Routine Procedures Performed Operation Date: 10/05/21 14:10 Actual Procedures p Left Stent Insertion - Patrick Calles DO s Cystoscopy, Left Retrograde Pyelogram, Aspiration, Dilation,(Left) - Patrick Calles DO Ordered Studies 10/04/21 08:09 US renal/blad retro comp Stat 10/05/21 FL retrograde includes kub Routine Hospital Course (1) Acute left flank pain: (2) Hydronephrosis, left: This is a 60-year-old male who has significant past medical history of PAF anticoagulated on Eliquis, HLD, chronic rhinitis, prediabetes, recent left inguinal hernia repair 07/10/2021 who presents to ED secondary to left flank pain and left lower quadrant abdominal pain x2 days. CT a/p 10/03: Swelling of the left kidney with perinephric stranding. Mild to moderate left-sided hydronephrosis. However, there is no evidence for hydroureter, renal calculus or ureteral calculus. The findings most likely related to recent passage of a calculus. However, chronic UPJ obstruction cannot be completely excluded based on this single study. US kidney 10/04: Likely mild hydronephrosis on the left with apparent debris, evaluation is limited by patient tolerance Pt continues to be symptomatic with + L CVA tenderness and LLQ pain will admit and request urologic eval admitted to [facility] IVF LR @ 125cc/hr strain all urine IV morphine severe pain, oxycodone moderate pain schedule APAP 500mg QID IV Rocephin given leukocytosis and persistent pain, initial urine appears negative but with RBC and protein clear liquid diet, npo Urology consulted, now pt s/p cystoscopy and L stent placement (10/05/21) w/ Dr. Calles Significant debris and blood in left renal pelvis noted during procedure. Stricture of UO dilated. -Pt Tolerated procedure well -Plan to maintain stent for 2-3 weeks. Will likely need Ureteroscopy at some point to reassess and determine source of blood. -Urology recommends 2 weeks of antibiotics -Urine culture is pending, follow-up as outpatient -Followup w/ urology as outpt (3) LINDA (acute kidney injury): baseline cr 0.9-1.0 bun/cr 20 and 1.35 on admission, Cr was 1.57 on 10/03 avoid nephrotoxic agents monitor labs current Cr 1.2 (10/06) -resolved (4) PAF (paroxysmal atrial fibrillation): hx of PAF x 2, recent episode 07/2021 s/p DCCV continue eliquis not on BB 2/2 to bradycardia monitor on tele Total Time Total Time Spent Total Time Spent (In Minutes): 40 Discharge Plan Discharge Items Patient Disposition: Home - Self-Care Reason For Visit: L FLANK PAIN/ABDOMINAL PAIN,HYDRONEPHROSIS Discharge Diagnosis: Left flank pain/left lower quadrant abdominal pain, hydronephrosis LINDA Activity: Per Instructions section Non-emergency contact: Primary Care Provider and Urologist Call non-emergency contact if: you have any medication questions and your symptoms worsen Follow-up/Referrals: Franklyn Nelson DO [Primary Care Provider] - (Date & Time 10/12/2021 11:00 AM Provider Franklyn Nelson DO Department [facility] ) Diet: Regular Addtl Attending Provider Instructions: Follow up with your primary care doctor, the appointment was scheduled for you for October 12. You will also need to follow-up with urology, it is recommended that you keep stent for 2 to 3 weeks. You will be contacted by urology office about upcoming appointment. Take antibiotics as prescribed. It is also recommended that you take probiotics while you are taking antibiotic, to prevent upset stomach and diarrhea. For pain, take Tylenol, up to 3000 mg a day. For more severe pain, you can take oxycodone, the prescription was already sent to you by emergency room physician. Pending Studies at Discharge: Yes Studies:: Urine culture Stand-Alone Forms: My [facility] [employer] Smoking Cessation Medications and DC Order Prescriptions: New cefuroxime axetil 250 mg tablet 250 mg PO BID 10 Days Qty: 20 RF: 0 Continued atorvastatin 10 mg tablet 10 mg PO DAILY RF: 0 multivitamin Tablet 1 tab PO DAILY RF: 0 acetaminophen 650 mg Tablet Extended Release 1,300 mg PO DAILY RF: 0 calcium polycarbophil [FiberCon] 625 mg Tablet 1,250 mg PO DAILY RF: 0 Eliquis 5 mg Tablet 5 mg PO BID Qty: 60 RF: 0 oxycodone 5 mg tablet 5 mg PO Q6H PRN (Reason: pain) Qty: 14 RF: 0 Discharge Orders: Discharge Order (Routine); Ordered 10/06/21 Ordered By: Elie Love Admission Data Admit Date/Time: 10/05/21 16:20 Attending Provider: Elie Love Admit Provider: Elie Love Primary Care Provider: Franklyn Nelson Other Providers: Elie Love ; Patrick Calles
--- NOTE | 2021-10-06 12:59 | Urology Progress Note ---
Date of Service October 06, 2021 Assessment & Plan (1) Hydronephrosis, left: Plan: - Pt POD#1 s/p cystoscopy, Left retrograde pyelogram, aspiration, ureteral dilation, and left stent placement. - Doing well, progressing as expected - Afebrile, lab work reviewed - creatinine 1.16, WBC 9.21 - Tolerating left ureteral stent with minimal bother - Urine aspirate from surgery is pending - follow cultures - Recommend home with course of PO antibiotics x 10-[address] Calles - Urine cytology pending - Okay to d/c from perspective when medically stable - Left ureteral stent to remain in place approximately 2-3 weeks - Recommend d/c with course of Tamsulosin, prn Pyridium and prn pain medication for stent management - Expected clinical course reviewed, all questions answered - Will arrange outpatient follow-up with our service Thank you for allowing us to participate in the acute care of Mr. Everett. Please reconsult us with additional questions, concerns or changes in patient status. Admission and Anticipated Discharge Date Admission Date: October 05, 2021 Subjective Pt POD #1 s/p cystoscopy, Left retrograde pyelogram, aspiration, ureteral dilation, and left stent placement. Patient awake and sitting up in bed. No acute issues overnight. Reports some mild abdominal bloating/gas. No flank pain. Tolerating PO diet, no nausea or vomiting. Reports BM since surgery. Voiding without difficulty. Mild dysuria, no hematuria. No fever or chills. Review of Systems Constitutional: as per Subjective / HPI Gastrointestinal: as per Subjective / HPI Genitourinary: + as per Subjective / HPI Physical Exam Constitutional: well developed and well nourished; no acute distress and not ill appearing Respiratory: normal respiratory effort and able to speak in complete sentences; no respiratory distress and no labored breathing Gastrointestinal (Abdomen): Inspection/Auscultation: abdomen normal to inspection; abdomen not distended Neurologic: moves all extremities and awake Psychiatric: Orientation: alert and oriented x 3 Results & Data ([facility]) Vital Signs (Past 12 Hours) Vital Signs Temp Pulse Pulse Pulse Resp BP BP 10/06/21 11:29 36.7 C 55 L 18 179/82 H 10/06/21 07:27 57 L 10/06/21 07:15 36.7 C 57 L 18 168/82 H 10/06/21 04:55 36.6 C 60 18 172/79 H Pulse Ox 10/06/21 11:29 95 10/06/21 07:27 10/06/21 07:15 92 10/06/21 04:55 94 PG Care Time/CCT Total # of Minutes Spent Total Time Spent with Patient: Total time spent is greater than 50% in coordination of care (as documented) at patient's floor/unit and/or counseling patient: Coding Level of Care Code 99534 Subseq Hosp Care Lvl 2 Diagnoses Hydronephrosis, left N13.30
[2021-10-06] MEDS ORDERED: hydrALAZINE HCL 20 MG/ML VIAL IV ONE (13:58)
[2021-10-06] MEDS ORDERED: TAMSULOSIN HCL 0.4 MG CAP PO ONE (14:02)
== END 2021-10-06 16:17 | disposition home or self-care (01) | DRG 661 ==
LOC: 2N 07:30 → ED 07:30 → 2N 14:06

== ENCOUNTER 2024-11-01 02:39 | Observation (INO) ==
--- NOTE | 2024-11-01 02:57 | Emergency Department Note ---
History of Present Illness General Chief Complaint: Chest Pain Stated Complaint: Chest Pain Time Seen by Provider: 11/01/24 02:43 History of Present Illness Provider Complaint: + palpitations Onset (ago): 3 hour(s) Duration: + Intermittent Severity: similar to previous episodes Context: + occurred during rest Arrhythmia history: + atrial fibrillation and + on anti-coagulants (eliquis) Associated symptoms: + chest pain and + shortness of breath; no syncope, no nausea, no vomiting or no cough Treatments prior to arrival: + calcium channel mike (Cardizem 10 mg IV via EMS) and + other (Aspirin 324 mg via EMS) Home Medications Medication Instructions Recorded Confirmed Type atorvastatin 10 mg tablet 10 mg PO QAM 07/22/21 02/28/24 History calcium polycarbophil 625 mg 1,250 mg PO QAM 07/22/21 02/28/24 History tablet (FiberCon) multivitamin 1 tab PO QAM 07/22/21 02/28/24 History apixaban 5 mg tablet (Eliquis) 5 mg PO BID #60 tabs 07/24/21 02/28/24 Rx acetaminophen 650 mg See Rx Instructions .Route .COMPLEX 11/29/23 02/28/24 History tablet,extended release losartan 25 mg tablet 25 mg PO DAILY 02/28/24 02/28/24 History doxycycline hyclate 100 mg capsule 100 mg PO BID 10 days #20 caps 09/28/24 Rx Allergies Allergy/AdvReac Type Severity Reaction Status Date / Time sulfamethoxazole AdvReac Rash Verified 07/25/24 10:09 [From Bactrim] trimethoprim [From Bactrim] AdvReac Rash Verified 07/25/24 10:09 Past Med/Surg History Problem List (Updated 11/01/24 @ 03:56 by Nam Duque MD) Chest pain (Acute) Afib (Acute) Hypertensive heart disease Encounter for pre-operative examination Acute left flank pain (Acute) Hydronephrosis, left (Acute) Leukocytosis (Acute) PAF (paroxysmal atrial fibrillation) F/U DR SPEARS Hypercholesteremia (Chronic) Medical History BPH w urinary obs/LUTS Hematuria, gross LINDA (acute kidney injury) Pre-diabetes a1c 5.9 05/04/21 Atrial fibrillation with RVR Chronic rhinitis Elevated blood pressure, situational Surgical History H/O: vasectomy History of cystoscopy WITH STENT PLACEMENT Hx of inguinal hernia surgery 07/10/21 - Dr. donaldson H/O colonoscopy "diverticulosis repeat in 10 years 06/03/15" H/O foot surgery "neuroma x 2 excised" Family History Grandfather (Maternal) Coronary heart disease Grandfather (Paternal) Coronary heart disease Mother CHF (congestive heart failure) Social History Smoking Status: Never smoker packs per day: 0.5; Second Hand Exposure: No; Do You Dip or Chew Tobacco: No; Hx Alcohol Use: Yes Alcohol type: beer Alcohol Intake Frequency: Monthly or Less Hx Substance Use: No Preferred Language: Trinidadian Communication Ability: Effective Manager Image Required: No Beliefs That Will Affect Care: None marital status: Current Living Situation: Spouse current occupational status: employed current occupation: WORKS FOR [employer] Feels Safe at Home: Yes Assistive Devices: Glasses Physical Exam 2 Vital Signs: Vital Signs - 24 hr 11/01/24 02:43 11/01/24 02:43 11/01/24 02:43 Temperature 36.5 C Temperature Source Oral Pulse Rate 119 H Pulse Rate [Finger ] Pulse Rhythm [Fing er] Pulse Strength Normal Pulse Strength [Fi nger] Respiratory Rate 20 Respiratory Effort / Characteristics Non-Labored Sponta neous Respiratory Depth Normal Normal Respiratory Patter n Regular Blood Pressure 162/104 H Blood Pressure [Ri ght Arm] Blood Pressure Kaleigh n 123 Blood Pressure Kaleigh n [Right Arm] Pulse Oximetry 94 Oxygen Delivery Me thod Room Air Room Air Sepsis Recent Feve r Within 48 Hours No Sepsis New/Unexpla ined Change in Men kd Status N/A Sepsis Action Take n by Nursing No Action Required 11/01/24 02:52 11/01/24 02:58 11/01/24 02:58 Temperature Temperature Source Pulse Rate 124 H Pulse Rate [Finger ] Pulse Rhythm [Fing er] Pulse Strength Pulse Strength [Fi nger] Respiratory Rate Respiratory Effort / Characteristics Respiratory Depth Normal Respiratory Patter n Blood Pressure Blood Pressure [Ri ght Arm] Blood Pressure Kaleigh n Blood Pressure Kaleigh n [Right Arm] Pulse Oximetry Oxygen Delivery Me thod Room Air Sepsis Recent Feve r Within 48 Hours Sepsis New/Unexpla ined Change in Men kd Status Sepsis Action Take n by Nursing 11/01/24 03:26 11/01/24 03:42 Temperature Temperature Source Pulse Rate 113 H Pulse Rate [Finger ] 108 H Pulse Rhythm [Fing er] Irregular Pulse Strength Pulse Strength [Fi nger] Normal Respiratory Rate 20 Respiratory Effort / Characteristics Respiratory Depth Respiratory Patter n Blood Pressure Blood Pressure [Ri ght Arm] 149/107 H Blood Pressure Kaleigh n Blood Pressure Kaleigh n [Right Arm] 121 Pulse Oximetry 93 Oxygen Delivery Me thod Room Air Sepsis Recent Feve r Within 48 Hours Sepsis New/Unexpla ined Change in Men kd Status Sepsis Action Take n by Nursing Physical Exam: Physical Exam GENERAL: oriented to person, place, and time. appears well-developed and well- nourished. HENT: Exam performed. - Head: Normocephalic and atraumatic. EYES: Conjunctivae and EOM are normal. Right eye exhibits no discharge. Left eye exhibits no discharge. No scleral icterus. NECK: Normal range of motion. Neck supple. No JVD present. CV: Normal rate, irregular rhythm, normal heart sounds and intact distal pulses. There is no peripheral edema. Palpable radial pulses bue. PULM/CHEST: Effort normal and breath sounds normal. No respiratory distress. No stridor. no wheezes. no rales. ABD: The abdomen is soft. There is no tenderness. NEURO: Motor and sensation grossly intact. SKIN: Skin is warm and dry. He is not diaphoretic. PSYCH: normal mood and affect. Behavior is normal. Judgment and thought content normal. Course Course 0243: The patient was evaluated in room B8. A complete history and physical exam was performed Cardiac monitoring: An order was placed for continuous cardiac monitoring. The monitor shows a rate of 110 with atrial fibrilation rhythm interpreted by me 0355: Vital signs stable. Labs and imaging are unremarkable. Patient reports no chest pain at this time. Discussed with the patient about outpatient follow- up with cardiology versus inpatient observation for cardiology evaluation and possible medication adjustment in about the patient and at bedside would prefer to be admitted to be evaluated by cardiology. [facility] Medical Decision Making Laboratory Data Attestation: I reviewed the patient's lab results. 11/01/24 02:43 11/01/24 02:44 Lab Results 11/01/24 11/01/24 Range/Units 02:43 02:44 WBC 6.75 (4.8-10.8) K/ul RBC 4.96 (4.70-6.10) M/uL Hgb 14.7 (14.0-18.0) g/dl Hct 43.3 (42.0-52.0) % MCV 87.3 (80.0-100.0) fL MCH 29.6 (25.0-34.0) pg MCHC 33.9 (32.0-36.0) g/dL RDW Std Deviation 38.5 (36.4-46.3) fL RDW Coeff of Alicja 12.1 (11.5-14.5) % Plt Count 219 (130-400) K/uL MPV 10.1 (9.4-12.4) fL Immature Gran % (Auto) 0.3 % Neut % (Auto) 61.4 % Lymph % (Auto) 27.1 % [place] % (Auto) 7.1 % Eos % (Auto) 3.7 % Baso % (Auto) 0.4 % Neut # (Auto) 4.14 (1.40-6.50) K/uL Lymph # (Auto) 1.83 (1.20-3.40) K/uL [place] # (Auto) 0.48 (0.11-0.59) K/uL Eos # (Auto) 0.25 (0.00-0.50) K/uL Baso # (Auto) 0.03 (0.00-0.20) K/uL Immature Gran # (Auto) 0.02 (0.01-0.20) K/uL PT 10.9 (9.0-12.0) Seconds INR 1.0 (0.9-1.1) APTT 26 (21-31) Seconds PTT Ratio 1.0 Sodium 139 (136-145) mmol/L Potassium 4.2 (3.5-5.1) mmol/L Chloride 108 H (98-107) mmol/L Carbon Dioxide 23 (21-32) mmol/L Anion Gap 8 (3-11) BUN 20 (6-23) mg/dl Creatinine 0.88 (0.6-1.4) mg/dl Est Cr Clr Drug Dosing 104.1 ml/min eGFR 96.02 BUN/Creatinine Ratio 22.7 H (10-20) Glucose 113 H (70-99(Fasting)) mg/dl Calcium 8.9 (8.6-10.3) mg/dl Magnesium 1.9 (1.7-2.4) mg/dl Troponin I High Sens 6.9 (0-20) pg/ml Lipase 26 (11-82) U/L Imaging Data Attestation: I personally reviewed and interpreted this imaging study as follows: My Impression: Chest x-ray negative. Airway clear. No pneumothorax. No consolidation. No cardiomegaly or cephalization.. No free air under the diaphragm. No fractures of the skeletal structures. ECG Data Attestation: I personally reviewed and interpreted this ECG as follows: Rate (beats per minute): 111 Rhythm: atrial fibrillation Findings: no ST depression, no ST elevation or no prolonged QT Additional Comments: QRS 76 MDM Narrative 0243: The patient was evaluated in room B8. A complete history and physical exam was performed Cardiac monitoring: An order was placed for continuous cardiac monitoring. The monitor shows a rate of 110 with atrial fibrilation rhythm interpreted by me 0355: Vital signs stable. Labs and imaging are unremarkable. Patient reports no chest pain at this time. Discussed with the patient about outpatient follow- up with cardiology versus inpatient observation for cardiology evaluation and possible medication adjustment in about the patient and at bedside would prefer to be admitted to be evaluated by cardiology. Spoke with Dr. Christian Otto hospitalist will admit the patient. Impression & Plan Afib, Chest pain Discharge Plan Visit Data Chief Complaint: Chest Pain Stated Complaint: Chest Pain ED Provider: Nam Duque Discharge Problem: Afib, Chest pain Patient Disposition: Being Evaluated by Hospitalist Forms Stand Alone Forms: My [facility] [employer] Prescriptions Prescriptions: No Action doxycycline hyclate 100 mg capsule 100 mg PO BID 10 Days Qty: 20 0RF losartan 25 mg tablet 25 mg PO DAILY atorvastatin 10 mg tablet 10 mg PO QAM multivitamin Tablet 1 tab PO QAM calcium polycarbophil [FiberCon] 625 mg Tablet 1,250 mg PO QAM Eliquis 5 mg Tablet 5 mg PO BID Qty: 60 0RF acetaminophen [Tylenol Arthritis] 650 mg Tablet Extended Release See Rx Instructions .ROUTE .COMPLEX Rx Instructions: TAKES 1,300 MG QAM, THEN 650 MG QPM. Referrals Referrals: Franklyn Nelson DO [Primary Care Provider] - Discharge Problem: Afib Qualifiers: Atrial fibrillation type: unspecified Qualified Code(s): I48.91 - Unspecified atrial fibrillation Chest pain Qualifiers: Chest pain type: unspecified Qualified Code(s): R07.9 - Chest pain, unspecified
[2024-11-01 03:13] LABS: Basophils # (auto) 0.03 K/uL (0.00-0.20); Basophils % (auto) 0.4 %; Eosinophils # (auto) 0.25 K/uL (0.00-0.50); Eosinophils % (auto) 3.7 %; Hematocrit (blood only) 43.3 % (42.0-52.0); Hemoglobin 14.7 g/dl (14.0-18.0); Immature Granulocytes # (auto) 0.02 K/uL (0.01-0.20); Immature Granulocytes % (auto) 0.3 %; Lymphocytes # (auto) 1.83 K/uL (1.20-3.40); Lymphocytes % (auto) 27.1 %; Mean Corpuscular Hemoglobin 29.6 pg (25.0-34.0); Mean Corpuscular Hgb Conc 33.9 g/dL (32.0-36.0); Mean Corpuscular Volume 87.3 fL (80.0-100.0); Mean Platelet Volume 10.1 fL (9.4-12.4); Monocytes # (auto) 0.48 K/uL (0.11-0.59); Monocytes % (auto) 7.1 %; Neutrophils # (auto) 4.14 K/uL (1.40-6.50); Neutrophils % (auto) 61.4 %; Platelet Count 219 K/uL (130-400); RDW Coefficient of Variation 12.1 % (11.5-14.5); RDW Standard Deviation 38.5 fL (36.4-46.3); Red Blood Count 4.96 M/uL (4.70-6.10); White Blood Count 6.75 K/ul (4.8-10.8)
[2024-11-01 03:28] LABS: BUN Creatinine Ratio 22.7 (10-20); Calcium 8.9 mg/dl (8.6-10.3); Creatinine Clr Calc Pharmacy 104.1 ml/min; Magnesium 1.9 mg/dl (1.7-2.4); Potassium 4.2 mmol/L (3.5-5.1)
[2024-11-01 03:35] LABS: Troponin I High Sensitivity 6.9 pg/ml (0-20)
[2024-11-01 03:38] LABS: Partial Thromboplastin Time 26 Seconds (21-31); Prothrombin Time 10.9 Seconds (9.0-12.0)
--- NOTE | 2024-11-01 03:56 | XRay Report ---
EXAM: XR chest 1V portable CLINICAL HISTORY: AFIB JMF TECHNIQUE: X-ray images of the chest were obtained in AP portable projections. COMPARISON: Previous study dated 07/22/2021. FINDINGS: Pulmonary Parenchyma: Bilateral prominent bronchovascular marking suggestive lung congestion/bronchitis. Non-specific 5 mm radiodensity projecting that projects inferior to the left hilum, stable. No evidence of consolidation, collapse, or focal opacities. No pulmonary nodules identified. No evidence of pleural effusion or pleural thickening. Heart and Mediastinum: Heart size and shape are normal. No mediastinal widening or masses. No hilar or mediastinal lymphadenopathy. Bony Thorax: Bony thorax appears intact without fractures or deformities. Soft Tissues: Soft tissues overlying the chest wall are unremarkable. IMPRESSION: 1. Mild bilateral prominent bronchovascular marking, a nonspecific finding, may be seen in bronchitis/lung congestion. 2. Findings are more conspicuous in the current study. 3. Non-specific 5 mm radiodensity projecting that projects inferior to the left hilum, stable. Electronically signed by Alexandria Aguirre 11-01-2024 03:55 AM
[2024-11-01 04:40] LABS: Thyroid Stimulating Hormone 2.171 uIu/ml (0.300-4.500)
--- NOTE | 2024-11-01 04:54 | History & Physical Report ---
Date of Service November 01, 2024 Assessment & Plan (1) Afib: Plan: Recurrent A-fib hx chronic bradycardia/PAF status post cardioversion, not TBS as per [facility] EPS eval from December 2023 Untreated VALENCIA contributory hypertension, slightly elevated Headache symptoms secondary to illness/resolving URTI rule out bleed given Eliquis Rx hyperlipidemia, on statin Rx valvular heart disease (mild MR/TR) prediabetes, hemoglobin A1c of 5.29 October 2023 BPH, stable off maintenance medications past tobacco abuse PCU Caution with AV flor blockers given history of chronic bradycardia N.p.o. until patient seen by cardiology in anticipation of procedure CT head Re: Headache, Eliquis Rx Hold Eliquis until CT head resulted and patient seen by cardiology DVT prophylaxis. SCDs while Eliquis on hold Full code Patient requesting updates providers. Adriana Everett, contact #[phone]. Text document was generated using ShareTracker voice recognition software. It may contain grammatical or spelling errors. Kindly contact undersigned for clarification of any documentation item in question. History of Present Illness Chief Complaint: Palpitations Primary Care Provider: Franklyn Nelson, History obtained from patient, family, and records. Medical history significant for PAF status post cardioversion on Eliquis, history of PSVT, chronic bradycardia as per records, hypertension, hyperlipidemia, valvular heart disease (mild MR/TR, TTE 2023), VALENCIA, prediabetes, BPH, past tobacco abuse. Last confinement July 2021 for A-fib with RVR. Patient had near syncope, hypotension and bradycardia after IV Cardizem bolus. Subsequent cardioversion. Metoprolol discontinued due to marked bradycardia. Last outpatient [facility] cardiology visit July 2024 patient complaining of persistent lightheadedness. No TBS as per prior [facility] EPS evaluation from December,. Attributed to VALENCIA. Patient waiting for CPAP machine. Outpatient stress test recommended to evaluate chronotropic incompetence. Equivocal outpatient treadmill stress test last month. Stress stopped secondary to shortness of breath and hypertension, resting blood pressure 171/83, rising to 260/84. Amlodipine added to patient's blood pressure regimen. Repeat Zio monitor, preferably on CPAP therapy as per cardiology recom mendations. Zio patch read from last month later with symptomatic bradycardia notification, heart rate 40s lasting 30 seconds. Outpatient cardiology provider recommended CPAP therapy and avoiding AV flor blockers. Patient recovering from respiratory tract infection from 2 weeks ago. Some congestion dry cough symptoms Achy headache symptoms. No chest pain, no SOB. Transient diarrhea symptoms. Patient woke up last night with palpitations described as fluttering and more scold like similar to A-fib. No actual chest pain or SOB. Compliant with home meds. Denies OTC decongestant intake. Patient noted to be in rapid A-fib upon EMS arrival, Heart rate 140s. IV Cardizem bolus given en route to ER. Medical History as above Surgical History : Hernia repair, Smith neuroma removal Family History : Heart disease Personal/Social history : Past tobacco abuse, occasional EtOH intake, [email or web address] employee Allergies Allergy/AdvReac Type Severity Reaction Status Date / Time sulfamethoxazole AdvReac Rash Verified 07/25/24 10:09 [From Bactrim] trimethoprim [From Bactrim] AdvReac Rash Verified 07/25/24 10:09 Home Medications Medication Instructions Recorded Confirmed Type atorvastatin 10 mg tablet 10 mg PO QAM 07/22/21 11/01/24 History calcium polycarbophil 625 mg 1,250 mg PO QAM 07/22/21 11/01/24 History tablet (FiberCon) multivitamin 1 tab PO QAM 07/22/21 11/01/24 History apixaban 5 mg tablet (Eliquis) 5 mg PO BID #60 tabs 07/24/21 11/01/24 Rx acetaminophen 650 mg See Rx Instructions .Route .COMPLEX 11/29/23 11/01/24 History tablet,extended release losartan 25 mg tablet 25 mg PO DAILY 02/28/24 11/01/24 History amlodipine 2.5 mg tablet 2.5 mg PO DAILY 11/01/24 11/01/24 History Past Med/Surg History Problem List (Updated 11/01/24 @ 03:56 by Nam Duque MD) Chest pain (Acute) Afib (Acute) Hypertensive heart disease Encounter for pre-operative examination Acute left flank pain (Acute) Hydronephrosis, left (Acute) Leukocytosis (Acute) PAF (paroxysmal atrial fibrillation) F/U DR SPEARS Hypercholesteremia (Chronic) Medical History BPH w urinary obs/LUTS Hematuria, gross LINDA (acute kidney injury) Pre-diabetes a1c 5.9 05/04/21 Atrial fibrillation with RVR Chronic rhinitis Elevated blood pressure, situational Surgical History H/O: vasectomy History of cystoscopy WITH STENT PLACEMENT Hx of inguinal hernia surgery 07/10/21 - Dr. donaldson H/O colonoscopy "diverticulosis repeat in 10 years 06/03/15" H/O foot surgery "neuroma x 2 excised" Family History Grandfather (Maternal) Coronary heart disease Grandfather (Paternal) Coronary heart disease Mother CHF (congestive heart failure) Social History Smoking Status: Former smoker packs per day: 0.5; Second Hand Exposure: No; Do You Dip or Chew Tobacco: No; Hx Alcohol Use: Yes Alcohol type: beer Alcohol Intake Frequency: Monthly or Less Hx Substance Use: No Preferred Language: Kinyarwanda Communication Ability: Effective [place] Attendant Required: No Beliefs That Will Affect Care: None marital status: Current Living Situation: Spouse current occupational status: employed current occupation: WORKS FOR [employer] Other Information That Helps Us Care for You: No Feels Safe at Home: Yes Safety Concerns: Feels Safe At This Time Assistive Devices: Glasses Review of Systems Review of Systems: As per HPI, all other systems reviewed and negative Physical Exam Physical Exam: GENERAL: Slightly anxious,, no respiratory distress SKIN: Normal color, warm HEENT: Alopecia, pink palpebral conjunctivae, no ptosis, moist buccal mucosa NECK : Supple, no tenderness CHEST : Decreased breath sounds, no tenderness HEART : Irregular, no obvious murmurs ABDOMEN: Some distention, nontender EXTREMITIES : No LE swelling/tenderness, no other conspicuous deformities noted NEUROLOGIC : Coherent, no facial asymmetry, no other gross focality Results & Data Results & Data Vital Signs (Past 12 Hours) Vital Signs Temp Pulse Pulse Resp BP BP Pulse Ox 11/01/24 03:42 108 H 20 149/107 H 93 11/01/24 03:26 113 H 11/01/24 02:58 11/01/24 02:52 124 H 11/01/24 02:43 11/01/24 02:43 36.5 C 119 H 20 162/104 H 94 O2 Del Method 11/01/24 03:42 Room Air 11/01/24 03:26 11/01/24 02:58 Room Air 11/01/24 02:52 11/01/24 02:43 Room Air 11/01/24 02:43 Room Air Laboratory Results Laboratory Results WBC 6.75 K/ul (4.8-10.8) 11/01/24 02:43 RBC 4.96 M/uL (4.70-6.10) 11/01/24 02:43 Hgb 14.7 g/dl (14.0-18.0) 11/01/24 02:43 Hct 43.3 % (42.0-52.0) 11/01/24 02:43 MCV 87.3 fL (80.0-100.0) 11/01/24 02:43 MCH 29.6 pg (25.0-34.0) 11/01/24 02:43 MCHC 33.9 g/dL (32.0-36.0) 11/01/24 02:43 RDW Std Deviation 38.5 fL (36.4-46.3) 11/01/24 02:43 RDW Coeff of Alicja 12.1 % (11.5-14.5) 11/01/24 02:43 Plt Count 219 K/uL (130-400) 11/01/24 02:43 MPV 10.1 fL (9.4-12.4) 11/01/24 02:43 Immature Gran % (Auto) 0.3 % 11/01/24 02:43 Neut % (Auto) 61.4 % 11/01/24 02:43 Lymph % (Auto) 27.1 % 11/01/24 02:43 Crisp % (Auto) 7.1 % 11/01/24 02:43 Eos % (Auto) 3.7 % 11/01/24 02:43 Baso % (Auto) 0.4 % 11/01/24 02:43 Neut # (Auto) 4.14 K/uL (1.40-6.50) 11/01/24 02:43 Lymph # (Auto) 1.83 K/uL (1.20-3.40) 11/01/24 02:43 Crisp # (Auto) 0.48 K/uL (0.11-0.59) 11/01/24 02:43 Eos # (Auto) 0.25 K/uL (0.00-0.50) 11/01/24 02:43 Baso # (Auto) 0.03 K/uL (0.00-0.20) 11/01/24 02:43 Immature Gran # (Auto) 0.02 K/uL (0.01-0.20) 11/01/24 02:43 PT 10.9 Seconds (9.0-12.0) 11/01/24 02:43 INR 1.0 (0.9-1.1) 11/01/24 02:43 APTT 26 Seconds (21-31) 11/01/24 02:43 PTT Ratio 1.0 11/01/24 02:43 Sodium 139 mmol/L (136-145) 11/01/24 02:44 Potassium 4.2 mmol/L (3.5-5.1) 11/01/24 02:44 Chloride 108 mmol/L (98-107) H 11/01/24 02:44 Carbon Dioxide 23 mmol/L (21-32) 11/01/24 02:44 Anion Gap 8 (3-11) 11/01/24 02:44 BUN 20 mg/dl (6-23) 11/01/24 02:44 Creatinine 0.88 mg/dl (0.6-1.4) 11/01/24 02:44 Est Cr Clr Drug Dosing 104.1 ml/min 11/01/24 02:44 eGFR 96.02 11/01/24 02:44 BUN/Creatinine Ratio 22.7 (10-20) H 11/01/24 02:44 Glucose 113 mg/dl (70-99(Fasting)) H 11/01/24 02:44 Calcium 8.9 mg/dl (8.6-10.3) 11/01/24 02:44 Magnesium 1.9 mg/dl (1.7-2.4) 11/01/24 02:44 Troponin I High Sens 6.9 pg/ml (0-20) 11/01/24 02:44 Lipase 26 U/L (11-82) 11/01/24 02:44 TSH 2.171 uIu/ml (0.300-4.500) 11/01/24 02:44 Impressions Chest X-Ray 11/01/24 02:43 EXAM: XR chest 1V portable CLINICAL HISTORY: AFIB JMF TECHNIQUE: X-ray images of the chest were obtained in AP portable projections. COMPARISON: Previous study dated 07/22/2021. FINDINGS: Pulmonary Parenchyma: Bilateral prominent bronchovascular marking suggestive lung congestion/bronchitis. Non-specific 5 mm radiodensity projecting that projects inferior to the left hilum, stable. No evidence of consolidation, collapse, or focal opacities. No pulmonary nodules identified. No evidence of pleural effusion or pleural thickening. Heart and Mediastinum: Heart size and shape are normal. No mediastinal widening or masses. No hilar or mediastinal lymphadenopathy. Bony Thorax: Bony thorax appears intact without fractures or deformities. Soft Tissues: Soft tissues overlying the chest wall are unremarkable. IMPRESSION: 1. Mild bilateral prominent bronchovascular marking, a nonspecific finding, may be seen in bronchitis/lung congestion. 2. Findings are more conspicuous in the current study. 3. Non-specific 5 mm radiodensity projecting that projects inferior to the left hilum, stable. Electronically signed by Alexandria Aguirre 11-01-2024 03:55 AM Diagnostic Findings EKG as per my interpretation :Rate 110, A-fib, normal axis, nonspecific T wave abnormalities (1) Afib Atrial fibrillation type: unspecified Qualified Code(s): I48.91 - Unspecified atrial fibrillation
[2024-11-01] MEDS: MAGNESIUM SULFATE / D5W 1 GM/100 ML BAG IV STA (04:55)
[2024-11-01] MEDS ORDERED: PROMETHAZINE 6.25 MG/50.25 ML BAG IV PRN (04:56)
[2024-11-01] MEDS ORDERED: traMADol HCL 50 MG TABLET PO PRN (04:56)
[2024-11-01] MEDS ORDERED: LORazepam 0.5 MG TAB PO PRN (04:56)
[2024-11-01] MEDS ORDERED: BENZONATATE 100 MG CAPSULE PO PRN (04:56)
[2024-11-01] MEDS: guaiFENesin 600 MG TABCR PO STA (04:58)
[2024-11-01 06:07] LABS: Adenovirus PCR Not Detected (NotDetected); Bordetella parapertussis PCR Not Detected (NotDetected); Bordetella pertussis PCR Not Detected (NotDetected); Chlamydia pneumoniae PCR Not Detected (NotDetected); Coronavirus 229E PCR Not Detected (NotDetected); Coronavirus CoV-2 (COVID19)PCR Not Detected (NotDetected); Coronavirus HKU1 PCR Not Detected (NotDetected); Coronavirus NL63 PCR Not Detected (NotDetected); Coronavirus OC43PCR Not Detected (NotDetected); Human Metapneumovirus PCR Not Detected (NotDetected); Influenza A PCR Not Detected (NotDetected); Influenza B PCR Not Detected (NotDetected); Mycoplasma pneumoniae PCR Not Detected (NotDetected); Parainfluenza Virus 1 PCR Not Detected (NotDetected); Parainfluenza Virus 2 PCR Not Detected (NotDetected); Parainfluenza Virus 3 PCR Not Detected (NotDetected); Parainfluenza Virus 4 PCR Not Detected (NotDetected); Respiratory Syncytial VirusPCR Not Detected (NotDetected); Rhinovirus/Enterovirus PCR Not Detected (NotDetected)
--- NOTE | 2024-11-01 06:36 | CT Scan Report ---
EXAM: CT head/brain wo con CLINICAL HISTORY: cristi woods TECHNIQUE: An axial non-contrast CT scan of the brain was performed from the skull base to the high parietal region. One of the following dose reduction techniques were utilized for this exam: Automated exposure control, adjustment of the mA and/or kV according to patient size, and use of iterative reconstruction. CTDI: 35.4 mGy, DLP: 625.80 mGy-cm. COMPARISON: None. FINDINGS: Brain Parenchyma: Normal attenuation of the cerebral hemispheres, cerebellum, and brainstem. No evidence of acute infarct, hemorrhage, or mass effect. No abnormal areas of hypo- or hyperattenuation. Ventricular System: Ventricles are normal in size and configuration. No evidence of hydrocephalus or ventricular enlargement. Subarachnoid Spaces: Normal sulci and cisterns. No evidence of subarachnoid hemorrhage or extra-axial fluid collections. Cerebellum and Brainstem: Normal size and signal. No masses, lesions, or areas of abnormal signal. Orbits: Normal appearance of the globes, optic nerves, and extraocular muscles. No evidence of orbital masses or abnormal signal. Sinuses: Clear paranasal sinuses. No evidence of sinusitis or mucosal thickening. Mastoid Air Cells: Clear mastoid air cells. No evidence of mastoiditis. Skull and Meninges: Normal skull morphology. IMPRESSION: Normal CT of the head without contrast. Electronically signed by Alexandria Aguirre 11-01-2024 06:36 AM
[2024-11-01] MEDS: MULTIVITAMIN TAB PO SCH (08:22)
[2024-11-01] MEDS: ATORVASTATIN 10 MG TAB PO SCH (08:22)
[2024-11-01] MEDS: LOSARTAN POTASSIUM 25 MG TAB PO STA (08:22)
--- NOTE | 2024-11-01 08:42 | Cardiology Consultation ---
Date of Consultation November 01, 2024 Assessment & Plan (1) Atrial fibrillation with RVR: (2) Sinus bradycardia: (3) SOB (shortness of breath): (4) Hypertension: Plan Patient admitted with recurrent atrial fibrillation with RVR, starting around 11:00 PM. Episodes of afib in the past, last one in 2020 requiring cardioversion. Underlying sinus bradycardia limiting treatment for afib. He has been off all AV flor blocking agents. He is complaint with Eliquis. Continue eliquis 5 mg BID Labs on admission unremarkable. HS troponin negative Treatment options for PAF discussed. Recommend DCCV today to restore NSR. Given the fact he is unable to take BB or antiarrhythmic therapy due to bradycardia, he may be a candidate for PVI ablation. Recommend evaluation with EP upon discharge. Given his persistent dizziness/lightheadedness, it is difficult to determine if this is related to his mild bradycardia. However he has had no pauses or high degree AV block that correlate with symptoms on outpatient ZIO. He was hypertensive on arrival, but BP has trended downward with home dose amlodipine and losartan. Given his persistent dyspnea with activity, recommend nuclear Lexiscan stress test/with low level exertion as an outpatient. Keep NPO today for DCCV later this afternoon. Case discussed with Dr. Jade I spent a total of 60 minutes on the date of service in preparation, delivery, and documentation of the care provided to this patient, excluding any time spent in the performance of separately billed services. Kayla Stevens PA-C Department of Cardiology, [facility] This chart was completed in part utilizing Speech Voice Recognition Software. Grammatical errors, random word insertions, pronoun errors, and incomplete sentences are an occasional consequence of this system due to software limitations, ambient noise, and hardware issues. Any formal questions or concerns about the content, text, or information contained within the body of this dictation should be directly addressed to the provider for clarification. Supervising Physician Co-Signing Physician Notes The right significant only get his heart rate up to 113 attending attestation: Case reviewed with the advanced practitioner. I have personally performed a history and physical examination on the patient. I have reviewed the advanced practitioner's documentation on the date of service referenced in note, and I agree with, and take responsibility for the plan of care. Subjective: Patient seen before, during, post direct-current cardioversion. Successful conversion to sinus rhythm. Exam: Cardiovascular: Irregular rhythm at time of initial exam, no murmurs, no edema embolic this is a beatriz that I just usually can get to see Data: Echocardiogram performed in November, as an outpatient revealed normal ejection fraction, moderate left atrial lodgment, mild MR, mild TR. Moderate enlargement of the right ventricle. Recent Zio patch revealed average heart rate in the 50s, sinus bradycardia, with multiple patient triggered events correlating with sinus rhythm in the 50s. Recent EKG treadmill stress test was negative for ischemia, heart rate response was attenuated and hypertensive blood pressure response to exercise was noted with peak systolic blood pressure of 262 mmHg. Impression/ Plan: Atrial fibrillation with rapid ventricular response-patient underwent direct-cur rent cardioversion. Avoid AV flor blockers. Continue Eliquis for stroke prophylaxis -Future considerations include PVI. His most recent cardioversion dates back to 2020 however. Dyspnea on exertion: Proceed with low intensity exercise/Lexiscan nuclear stress test as outpatient Hypertension with hypertensive blood pressure response to exercise: Increase losartan from 25 mg to 50 mg daily at discharge. Continue amlodipine 2.5 mg daily. I spent a total of 25 minutes coordinating, documenting, and providing care for this patient excluding time spent in the performance of separately billed services or time spent by another provider. Camilo Jade, History of Present Illness Reason for Consultation: Afib Requesting Physician: [facility] Hospitalist Attending Physician: Dr. Jade History of Present Illness Patient is a 63 year old male who Presented to [facility] last evening with complaints of palpitations and heart rates in the 150s at home. Diagnosed with recurrent atrial fibrillation with rapid ventricular response. Last known episode was in 2020 requiring cardioversion. At that time low-dose metoprolol was added but then had to be discontinued due to resting bradycardia. He has been off all AV flor blocking therapies since that time. Earlier this year, patient began to experience intermittent dizziness. He underwent several outpatient ZIO monitors which demonstrated resting sinus bradycardia without pauses or high degree AV block. Average HR in the low/mid 50's. He recently underwent treadmill stress test which was terminated due to hypertension and SOB. He was started on amlodipine for HTN last month. He continues to report SOB with minimal activity. Dizziness has been present intermittently for the last year. He had EP evaluation previously and felt he did not have tachybrady at that time since no recurrent afib. Further discussion about future PVI. The afib started suddenly last night as he was going to bed. [place] fluttering and dizzy. No chest pain. No SOB. He reports compliance with Eliquis he recently was diagnosed with VALENCIA. Trialed the mouth piece but no significant improvement. He is getting CPAP next week History includes: 1. Paroxysmal atrial fibrillation s/p DCC in 2015 and 05/2021 - on chronic Eliquis 2. SVT 3. Bradycardia 4. HTN 5. HLD 6. Moderate VALENCIA Allergies Allergy/AdvReac Type Severity Reaction Status Date / Time sulfamethoxazole AdvReac Rash Verified 07/25/24 10:09 [From Bactrim] trimethoprim [From Bactrim] AdvReac Rash Verified 07/25/24 10:09 Home Medications Medication Instructions Recorded Confirmed Type atorvastatin 10 mg tablet 10 mg PO QAM 07/22/21 11/01/24 History calcium polycarbophil 625 mg 1,250 mg PO QAM 07/22/21 11/01/24 History tablet (FiberCon) multivitamin 1 tab PO QAM 07/22/21 11/01/24 History apixaban 5 mg tablet (Eliquis) 5 mg PO BID #60 tabs 07/24/21 11/01/24 Rx acetaminophen 650 mg See Rx Instructions .Route .COMPLEX 11/29/23 11/01/24 History tablet,extended release losartan 25 mg tablet 25 mg PO DAILY 02/28/24 11/01/24 History amlodipine 2.5 mg tablet 2.5 mg PO DAILY 11/01/24 11/01/24 History Patient History Medical History BPH w urinary obs/LUTS Hematuria, gross LINDA (acute kidney injury) Pre-diabetes a1c 5.9 05/04/21 Atrial fibrillation with RVR Chronic rhinitis Elevated blood pressure, situational Surgical History H/O: vasectomy History of cystoscopy WITH STENT PLACEMENT Hx of inguinal hernia surgery 07/10/[address] - Dr. donaldson H/O colonoscopy "diverticulosis repeat in 10 years 06/03/15" H/O foot surgery "neuroma x 2 excised" Family History Grandfather (Maternal) Coronary heart disease Grandfather (Paternal) Coronary heart disease Mother CHF (congestive heart failure) Social History Smoking Status: Former smoker packs per day: 0.5; Second Hand Exposure: No; Do You Dip or Chew Tobacco: No; Hx Alcohol Use: Yes Alcohol type: beer Alcohol Intake Frequency: Monthly or Less Hx Substance Use: No Preferred Language: Lithuanian Communication Ability: Effective Economic Specialist Required: No Beliefs That Will Affect Care: None marital status: Current Living Situation: Spouse current occupational status: employed current occupation: WORKS FOR [employer] Other Information That Helps Us Care for You: No Feels Safe at Home: Yes Safety Concerns: Feels Safe At This Time Assistive Devices: Glasses Review of Systems Review of Systems: All systems reviewed & are unremarkable except as noted in HPI & below Physical Exam Constitutional: WD/WN, vitals as above well nourished; no acute distress Neck: + thick neck Respiratory: normal respiratory effort Auscultation: no crackles and no rales Cardiovascular: Rate/Rhythm: + tachycardic and + irregularly irregular Heart Sounds: no murmur Vessels: no JVD Extremities: no edema Gastrointestinal (Abdomen): normal bowel sounds, soft, nontender, no hepatosplenomegaly Musculoskeletal: no cyanosis or clubbing, extremities motor strength 5/5 Neurologic: PERRL, EOMI, accommodation nl, no face palsy, no dysarthria Results & Data Vital Signs (Past 12 Hours) Vital Signs Temp Pulse Pulse Resp BP BP BP 11/01/24 07:40 36.3 C L 95 H 18 131/88 11/01/24 07:34 104 H 11/01/24 06:26 11/01/24 06:10 36.4 C L 93 H 18 163/80 H 11/01/24 06:02 11/01/24 05:36 11/01/24 05:00 120 H 20 128/98 11/01/24 03:42 108 H 20 149/107 H 11/01/24 03:26 113 H 11/01/24 02:58 11/01/24 02:52 124 H 11/01/24 02:43 12/12/24 02:43 36.5 C 119 H 20 162/104 H Pulse Ox Pulse Ox O2 Del Method O2 Del Method 11/01/24 07:40 96 Room Air 11/01/24 07:34 11/01/24 06:26 Room Air 11/01/24 06:10 93 Room Air 11/01/24 06:02 93 Room Air 11/01/24 05:36 Room Air 11/01/24 05:00 93 Room Air 11/01/24 03:42 93 Room Air 11/01/24 03:26 11/01/24 02:58 Room Air 11/01/24 02:52 11/01/24 02:43 Room Air 11/01/24 02:43 94 Room Air Laboratory Results Cardiac Enzymes 11/01/24 Range/Units 02:44 Troponin I High Sens 6.9 (0-20) pg/ml Coagulation 11/01/24 Range/Units 02:43 PT 10.9 (9.0-12.0) Seconds APTT 26 (21-31) Seconds CBC 11/01/24 Range/Units 02:43 WBC 6.75 (4.8-10.8) K/ul RBC 4.96 (4.70-6.10) M/uL Hgb 14.7 (14.0-18.0) g/dl Hct 43.3 (42.0-52.0) % Plt Count 219 (130-400) K/uL Neut # (Auto) 4.14 (1.40-6.50) K/uL Lymph # (Auto) 1.83 (1.20-3.40) K/uL Brantley # (Auto) 0.48 (0.11-0.59) K/uL Eos # (Auto) 0.25 (0.00-0.50) K/uL Baso # (Auto) 0.03 (0.00-0.20) K/uL Comprehensive Metabolic Panel 11/01/24 Range/Units 02:44 Sodium 139 (136-145) mmol/L Potassium 4.2 (3.5-5.1) mmol/L Chloride 108 H (98-107) mmol/L Carbon Dioxide 23 (21-32) mmol/L BUN 20 (6-23) mg/dl Creatinine 0.88 (0.6-1.4) mg/dl Glucose 113 H (70-99(Fasting)) mg/dl Calcium 8.9 (8.6-10.3) mg/dl Intake and Output 10/31/24 11/01/24 11/01/24 22:59 06:59 14:59 Intake Total 100 / 100 Balance 100 / 100 Intake: IV 100 / 100 Magnesium Sulfate / D5w 1 gm In 100 / 100 100 ml @ 50 mls/hr IV ONE STA Rx#:[id number] Other: Weight 109.5 kg 109.5 kg Weight Measurement Method Built in [facility] Patient Weight 11/02/24 06:59 Weight 109.5 kg Diagnostic Findings Chest X-Ray 11/01/24 02:43 IMPRESSION: 1. Mild bilateral prominent bronchovascular marking, a nonspecific finding, may be seen in bronchitis/lung congestion. 2. Findings are more conspicuous in the current study. 3. Non-specific 5 mm radiodensity projecting that projects inferior to the left hilum, stable. Electronically signed by Alexandria Aguirre 11-01-2024 03:[address] 11/01/24 04:54 IMPRESSION: Normal CT of the head without contrast. Electronically signed by Alexandria Aguirre 11-01-2024 06:36 AM Medications Administered Current Inpatient Medications Amlodipine Besylate (Amlodipine Besylate 5 Mg Tab) 2.5 mg PO DAILY [facility] Stop: 12/01/24 08:59 Last Admin: 11/01/24 09:54 Dose: 2.5 mg Apixaban (Apixaban 5 Mg Tablet) 5 mg PO BID [facility] Stop: 12/01/24 10:14 Last Admin: 11/01/24 10:28 Dose: 5 mg Atorvastatin Calcium (Atorvastatin 10 Mg Tab) 10 mg PO QAM [facility] Stop: 12/01/24 08:59 Last Admin: 11/01/24 08:22 Dose: 10 mg Benzonatate (Benzonatate 100 Mg Capsule) 100 mg PO TID PRN PRN Reason: Cough Stop: 12/01/24 04:55 Guaifenesin (Guaifenesin 600 Mg Tabcr) 600 mg PO Q12 [facility] Stop: 12/01/24 20:59 Promethazine HCl (Phenergan) 6.25 mg in 50.25 mls @ 201 mls/hr IV Q6H PRN PRN Reason: Nausea And Vomiting Stop: 12/01/24 04:55 Lorazepam (Lorazepam 0.5 Mg Tab) 0.5 mg PO TID PRN PRN Reason: Anxiety Stop: 12/01/24 04:55 Losartan Potassium (Losartan Potassium 25 Mg Tab) 25 mg PO DAILY [facility] Stop: 12/02/24 08:59 Multivitamins (Multivitamin Tab) 1 tab PO QAM [facility] Stop: 12/01/24 08:59 Last Admin: 11/01/24 08:22 Dose: 1 tab Tramadol HCl (Tramadol Hcl 50 Mg Tablet) 25 - 50 mg PO Q4H PRN PRN Reason: Pain Stop: 12/01/24 04:55
--- NOTE | 2024-11-01 08:52 | Electrocardiogram Report ---
Test Reason : Blood Pressure : */* mmHG Vent. Rate : 111 BPM Atrial Rate : * BPM P-R Int : * ms QRS Dur : 76 ms QT Int : 314 ms P-R-T Axes : * 49 25 degrees QTcB Int : 427 ms Atrial fibrillation with rapid ventricular response Abnormal ECG When compared with ECG of 29-Nov-2023 23:09, Atrial fibrillation has replaced Sinus rhythm Vent. rate has increased by 69 bpm Confirmed by Omega Richards ([id number]) on 11/01/2024 8:52:48 AM Referred By: REFERRED SELF Confirmed By: Omega Richards
[2024-11-01] MEDS ORDERED: LOSARTAN POTASSIUM 25 MG TAB PO SCH (09:00)
[2024-11-01] MEDS: amLODIPine BESYLATE 5 MG TAB PO SCH (09:54)
[2024-11-01] MEDS: APIXABAN 5 MG TABLET PO SCH (10:28)
--- NOTE | 2024-11-01 11:04 | Hospitalist Progress Note ---
Date of Service November 01, 2024 Assessment & Plan (1) Afib: Plan: Recurrent A-fib hx chronic bradycardia/PAF status post cardioversion, not TBS as per C EPS eval from December 2023 Untreated VALENCIA contributory hypertension, slightly elevated Headache symptoms secondary to illness/resolving URTI rule out bleed given Eliquis Rx hyperlipidemia, on statin Rx valvular heart disease (mild MR/TR) prediabetes, hemoglobin A1c of 5.29 October 2023 BPH, stable off maintenance medications past tobacco abuse PCU Caution with AV flor blockers given history of chronic bradycardia N.p.o. until patient seen by cardiology in anticipation of procedure CT head Re: Headache, Eliquis Rx Hold Eliquis until CT head resulted and patient seen by cardiology DVT prophylaxis. SCDs while Eliquis on hold Full code Patient requesting updates providers. Ms. Adriana Everett, contact #[phone]. Text document was generated using [employer] voice recognition software. It may contain grammatical or spelling errors. Kindly contact undersigned for clarification of any documentation item in question. Admission and Anticipated Discharge Date Admission Date: November 01, 2024 Results & Data Results & Data Vital Signs (Past 12 Hours) Vital Signs Temp Pulse Pulse Resp BP BP BP 11/01/24 07:40 36.3 C L 95 H 18 131/88 11/01/24 07:34 104 H 11/01/24 06:26 11/01/24 06:10 36.4 C L 93 H 18 163/80 H 11/01/24 06:02 11/01/24 05:36 11/01/24 05:00 120 H 20 128/98 11/01/24 03:42 108 H 20 149/107 H 11/01/24 03:26 113 H 11/01/24 02:58 11/01/24 02:52 124 H 11/01/24 02:43 11/01/24 02:43 36.5 C 119 H 20 162/104 H Pulse Ox Pulse Ox O2 Del Method O2 Del Method 11/01/24 07:40 96 Room Air 11/01/24 07:34 11/01/24 06:26 Room Air 11/01/24 06:10 93 Room Air 11/01/24 06:02 93 Room Air 11/01/24 05:36 Room Air 11/01/24 05:00 93 Room Air 11/01/24 03:42 93 Room Air 11/01/24 03:26 11/01/24 02:58 Room Air 11/01/24 02:52 11/01/24 02:43 Room Air 11/01/24 02:43 94 Room Air (1) Afib Atrial fibrillation type: unspecified Qualified Code(s): I48.91 - Unspecified atrial fibrillation
--- NOTE | 2024-11-01 11:47 | Anesthesiology Consultation ---
Date of Service November 01, 2024 Assessment & Plan (1) Encounter for pre-operative examination: Chart Review Chart Review: Acceptable Risk for Surgery and Patient NOT seen in Pre Admission Testing Consults Requested none History Surgery Operation Date: 11/01/24 13:00 Proposed Procedures p Cardioversion Multisensor Intelligence Officer w/Anesthesia - Camilo Jade DO Height/Weight Height: 6 ft 4 in Weight: 109.5 kg Allergies Allergy/AdvReac Type Severity Reaction Status Date / Time sulfamethoxazole AdvReac Rash Verified 07/25/24 10:09 [From Bactrim] trimethoprim [From Bactrim] AdvReac Rash Verified 07/25/24 10:09 Medications Home Medications Medication Instructions Recorded Confirmed Last Taken atorvastatin 10 mg tablet 10 mg PO QAM 07/22/21 11/01/24 10/31/24 calcium polycarbophil 625 mg 1,250 mg PO QAM 07/22/21 11/01/24 10/31/24 tablet (FiberCon) multivitamin 1 tab PO QAM 07/22/21 11/01/24 10/31/24 apixaban 5 mg tablet (Eliquis) 5 mg PO BID #60 tabs 07/24/21 11/01/24 10/31/24 acetaminophen 650 mg See Rx Instructions .Route .COMPLEX 11/29/23 11/01/24 10/31/24 tablet,extended release losartan 25 mg tablet 25 mg PO DAILY 02/28/24 11/01/24 10/31/24 amlodipine 2.5 mg tablet 2.5 mg PO DAILY 11/01/24 11/01/24 Unknown Active Medications Generic Name Dose Route Start Last Admin Trade Name Jeanq PRN Reason Stop Dose Admin Amlodipine Besylate 2.5 mg 11/01/24 09:00 11/01/24 09:54 Amlodipine Besylate 5 Mg Tab PO 12/01/24 08:59 2.5 mg DAILY MINA Administration Apixaban 5 mg 11/01/24 10:15 11/01/24 10:28 Apixaban 5 Mg Tablet PO 12/01/24 10:14 5 mg BID MINA Administration Atorvastatin Calcium 10 mg 11/01/24 09:00 11/01/24 08:22 Atorvastatin 10 Mg Tab PO 12/01/24 08:59 10 mg QAM MINA Administration Multivitamins 1 tab 11/01/24 09:00 11/01/24 08:22 Multivitamin Tab PO 12/01/24 08:59 1 tab QAM MINA Administration Past Medical History Medical History BPH w urinary obs/LUTS Hematuria, gross LINDA (acute kidney injury) Pre-diabetes a1c 5.9 05/04/21 Atrial fibrillation with RVR Chronic rhinitis Elevated blood pressure, situational Past Family History Family History Grandfather (Maternal) Coronary heart disease Grandfather (Paternal) Coronary heart disease Mother CHF (congestive heart failure) Past Surgical History Surgical History H/O: vasectomy History of cystoscopy WITH STENT PLACEMENT Hx of inguinal hernia surgery 07/10/21 - Dr. donaldson H/O colonoscopy "diverticulosis repeat in 10 years 06/03/15" H/O foot surgery "neuroma x 2 excised" Social History Smoking Status: Former smoker Do You Dip or Chew Tobacco: No Hx Alcohol Use: Yes Alcohol type: beer alcohol intake frequency: holidays/special occasions only Hx Substance Use: No substance use type: does not use Physical Exam Vital Signs Last Vital Signs Temp 97.2 F L 11/01/24 10:58 Pulse 130 H 11/01/24 10:58 Resp 18 11/01/24 10:58 BP 114/76 11/01/24 10:58 Pulse Ox 91 11/01/24 10:58 O2 Del Method Room Air 11/01/24 10:58 Testing Laboratory Results 11/01/24 02:43 11/01/24 02:44 PT 10.9 Seconds (9.0-12.0) 11/01/24 02:43 INR 1.0 (0.9-1.1) 11/01/24 02:43 APTT 26 Seconds (21-31) 11/01/24 02:43
[2024-11-01] MEDS ORDERED: LIDOCAINE 2% 2 ML VIAL/AMP(20MG/ML) INFIL ONE (11:50)
[2024-11-01] MEDS ORDERED: PROPOFOL IV EMULSION 10 MG/ML 20 ML VIAL IV ONE (11:50)
--- NOTE | 2024-11-01 12:16 | Anesthesiology Progress Note ---
Date of Service November 01, 2024 Anesthesia Post Procedure Vital Signs Vital Signs: Temp Pulse Pulse Resp BP BP BP 11/01/24 11:45 61 18 118/75 11/01/24 10:58 97.2 F L 130 H 18 114/76 11/01/24 07:40 97.3 F L 95 H 18 131/88 11/01/24 07:34 104 H 11/01/24 06:26 11/01/24 06:10 97.5 F L 93 H 18 163/80 H 11/01/24 06:02 11/01/24 05:36 11/01/24 05:00 120 H 20 128/98 11/01/24 03:42 108 H 20 149/107 H 11/01/24 03:26 113 H 11/01/24 02:58 11/01/24 02:52 124 H 11/01/24 02:43 11/01/24 02:43 97.7 F 119 H 20 162/104 H Pulse Ox Pulse Ox O2 Del Method O2 Del Method 11/01/24 11:45 93 Room Air 11/01/24 10:58 91 Room Air 11/01/24 07:40 96 Room Air 11/01/24 07:34 11/01/24 06:26 Room Air 11/01/24 06:10 93 Room Air 11/01/24 06:02 93 Room Air 11/01/24 05:36 Room Air 11/01/24 05:00 93 Room Air 11/01/24 03:42 93 Room Air 11/01/24 03:26 11/01/24 02:58 Room Air 11/01/24 02:52 11/01/24 02:43 Room Air 11/01/24 02:43 94 Room Air Transfer of Care Handoff Completed per policy Notes Mental Status: alert / awake / arousable and participated in evaluation Patient Amnestic to Procedure: Yes Nausea / Vomiting: adequately controlled Pain: adequately controlled Airway Patency, RR, SpO2: stable & adequate BP & HR: stable & adequate Hydration State: stable & adequate Anesthetic Complications: no major complications apparent and Pt Satisfied with anesthetic care
--- NOTE | 2024-11-01 12:32 | Cardioversion ---
Date of Service November 01, 2024 Electrical Cardioversion Rpt Electrical Cardioversion Report Procedure Preprocedure diagnosis: Symptomatic atrial fibrillation with rapid ventricular response Postprocedure diagnosis successful conversion to sinus rhythm Direct-current cardioversion procedure. The patient's vital signs were monitored via the standard fashion. After informed consent was obtained and a timeout was performed the patient was sedated with the assistance of the anesthesia service receiving 40 mg of IV lidocaine and 70 mg of IV propofol. The patient then underwent direct-current cardioversion receiving a single dose of 200 J of biphasic energy with successful conversion to sinus rhythm. Post procedure sinus bradycardia in the 50s to 60s noted. Plan: Patient has a history of resting sinus bradycardia and therefore is not going to be treated with AV flor blockers. Continue Eliquis for stroke prophylaxis. Continue amlodipine 2.5 mg daily, losartan 25 mg daily for hypertension. Future considerations include outpatient nuclear stress testing and follow-up with electrophysiology as an outpatient. Tax Record Clerk Camilo Jade, DO General Utility Machine Operator none Estimated Blood Loss 0 Findings Consistent with Post-Op Diagnosis Anesthesia Type MAC Complications No complications were immediately apparent.
--- NOTE | 2024-11-01 15:02 | Electrocardiogram Report ---
Test Reason : Blood Pressure : */* mmHG Vent. Rate : 64 BPM Atrial Rate : 64 BPM P-R Int : 172 ms QRS Dur : 90 ms QT Int : 392 ms P-R-T Axes : 63 40 53 degrees QTcB Int : 404 ms Normal sinus rhythm Normal ECG When compared with ECG of 01-Nov-2024 02:46, Sinus rhythm has replaced Atrial fibrillation Vent. rate has decreased by 47 bpm Confirmed by Omega Richards ([id number]) on 11/01/2024 3:01:58 PM Referred By: REFERRED SELF Confirmed By: Omega Richards
[2024-11-01 15:22] VITALS: PULSE 55; RESP 18; TEMP 97.3; O2SAT 92
--- NOTE | 2024-11-01 17:15 | Discharge Summary ---
Discharge Summary Date of Service November 01, 2024 Principal Dx & Hospital Course #1 = Principal Diagnosis (1) Afib: Plan Pt is a 63yoM with PMHx significant for PAF status post cardioversion on Eliquis, history of PSVT, chronic bradycardia as per records, hypertension, hyperlipidemia, valvular heart disease (mild MR/TR, TTE 2023), VALENCIA, prediabetes, BPH, past tobacco abuse who presented with symptomatic atrial fibrillation with rapid ventricular rate once more. EKG with atrial fibrillation HR 111 Trop normal at 6.9 Cardiology was consulted, pt is s/p successful cardioversion on 11/01/2024. Cardiology noted the following: "Plan: Patient has a history of resting sinus bradycardia and therefore is not going to be treated with AV flor blockers. Continue Eliquis for stroke prophylaxis. Continue amlodipine 2.5 mg daily...Future considerations include outpatient nuclear stress testing and follow-up with electrophysiology as an outpatient." Confirmed with diamond die maker Dr Camilo Jade that pt should be discharged with increased dose of losartan 50mg daily. Please ensure close cardiology followup after discharge as scheduled. Notes For Next Care Provider Please ensure close Cardiology followup after discharge Medication Changes From Visit losartan dose increased to 50 mg daily Admission HPI Per Admitting Provider History obtained from patient, family, and records. Medical history significant for PAF status post cardioversion on Eliquis, history of PSVT, chronic bradycardia as per records, hypertension, hyperlipid emia, valvular heart disease (mild MR/TR, TTE 2023), VALENCIA, prediabetes, BPH, past tobacco abuse. Last confinement July 2021 for A-fib with RVR. Patient had near syncope, hypotension and bradycardia after IV Cardizem bolus. Subsequent cardioversion. Metoprolol discontinued due to marked bradycardia. Last outpatient [facility] [place] 2024 patient complaining of persistent lightheadedness. No TBS as per prior [facility] [place] evaluation from December,. Attributed to VALENCIA. Patient waiting for CPAP machine. Outpatient stress test recommended to evaluate chronotropic incompetence. Equivocal outpatient treadmill stress test last month. Stress stopped secondary to shortness of breath and hypertension, resting blood pressure 171/83, rising to 260/84. Amlodipine added to patient's blood pressure regimen. Repeat Zio monitor, preferably on CPAP therapy as per cardiology recommendations. Zio patch read from last month later with symptomatic bradycardia notification, heart rate 40s lasting 30 seconds. Outpatient cardiology provider recommended CPAP therapy and avoiding AV flor blockers. Patient recovering from respiratory tract infection from 2 weeks ago. Some congestion dry cough symptoms Achy headache symptoms. No chest pain, no SOB. Transient diarrhea symptoms. Patient woke up last night with palpitations described as fluttering and more scold like similar to A-fib. No actual chest pain or SOB. Compliant with home meds. Denies OTC decongestant intake. Patient noted to be in rapid A-fib upon EMS arrival, Heart rate 140s. IV Cardizem bolus given en route to ER. Medical History as above Surgical History : Hernia repair, Smith neuroma removal Family History : Heart disease Personal/Social history : Past tobacco abuse, occasional EtOH intake, [employer] for [employer] employee Admission Exam Per Admitting Provider GENERAL: Slightly anxious,, no respiratory distress SKIN: Normal color, warm HEENT: Alopecia, pink palpebral conjunctivae, no ptosis, moist buccal mucosa NECK : Supple, no tenderness CHEST : Decreased breath sounds, no tenderness HEART : Irregular, no obvious murmurs ABDOMEN: Some distention, nontender EXTREMITIES : No LE swelling/tenderness, no other conspicuous deformities noted NEUROLOGIC : Coherent, no facial asymmetry, no other gross focality Discharge Exam General: Alert, oriented. No acute distress Skin: No noted rashes or bruises Psych: Appropriate mood and affect Neuro: No gross deficits HEENT: NC/AT CV: regular rate and rhythm (after cardioversion) Resp: Breath sounds clear bilaterally, no increased effort of breathing Abdomen: Soft, nontender Extremities: Trace edema in lower extremities bilaterally. Updated Medication List Medication Instructions Recorded Confirmed Type atorvastatin 10 mg tablet 10 mg PO QAM 07/22/21 11/01/24 History calcium polycarbophil 625 mg 1,250 mg PO QAM 07/22/21 11/01/24 History tablet (FiberCon) multivitamin 1 tab PO QAM 07/22/21 11/01/24 History apixaban 5 mg tablet (Eliquis) 5 mg PO BID #60 tabs 07/24/21 11/01/24 Rx acetaminophen 650 mg See Rx Instructions .Route .COMPLEX 11/29/23 11/01/24 History tablet,extended release amlodipine 2.5 mg tablet 2.5 mg PO DAILY 11/01/24 11/01/24 History losartan 25 mg tablet 50 mg (2 x 25 mg) PO DAILY #60 tabs 11/01/24 Rx Hospital Stay Data Consultations 11/01/24 03:51 ED Decision to Admit Stat 11/01/24 06:02 Consult Cardiology Routine 11/01/24 10:08 Consult Anesthesiology Routine Procedures Performed Operation Date: 11/01/24 11:45 Actual Procedures p Cardioversion - Camilo Jade, Diagnostic Imagining Performed 11/01/24 04:54 CT head/brain wo con Stat Chest X-Ray 11/01/24 02:43 EXAM: XR chest 1V portable CLINICAL HISTORY: AFIB JMF TECHNIQUE: X-ray images of the chest were obtained in AP portable projections. COMPARISON: Previous study dated 07/22/2021. FINDINGS: Pulmonary Parenchyma: Bilateral prominent bronchovascular marking suggestive lung congestion/bronchitis. Non-specific 5 mm radiodensity projecting that projects inferior to the left hilum, stable. No evidence of consolidation, collapse, or focal opacities. No pulmonary nodules identified. No evidence of pleural effusion or pleural thickening. Heart and Mediastinum: Heart size and shape are normal. No mediastinal widening or masses. No hilar or mediastinal lymphadenopathy. Bony Thorax: Bony thorax appears intact without fractures or deformities. Soft Tissues: Soft tissues overlying the chest wall are unremarkable. IMPRESSION: 1. Mild bilateral prominent bronchovascular marking, a nonspecific finding, may be seen in bronchitis/lung congestion. 2. Findings are more conspicuous in the current study. 3. Non-specific 5 mm radiodensity projecting that projects inferior to the left hilum, stable. Electronically signed by Alexandria Aguirre 11-01-2024 03:[address] 11/01/24 04:54 EXAM: CT head/brain wo con CLINICAL HISTORY: cristi woods TECHNIQUE: An axial non-contrast CT scan of the brain was performed from the skull base to the high parietal region. One of the following dose reduction techniques were utilized for this exam: Automated exposure control, adjustment of the mA and/or kV according to patient size, and use of iterative reconstruction. CTDI: 35.4 mGy, DLP: 625.80 mGy-cm. COMPARISON: None. FINDINGS: Brain Parenchyma: Normal attenuation of the cerebral hemispheres, cerebellum, and brainstem. No evidence of acute infarct, hemorrhage, or mass effect. No abnormal areas of hypo- or hyperattenuation. Ventricular System: Ventricles are normal in size and configuration. No evidence of hydrocephalus or ventricular enlargement. Subarachnoid Spaces: Normal sulci and cisterns. No evidence of subarachnoid hemorrhage or extra-axial fluid collections. Cerebellum and Brainstem: Normal size and signal. No masses, lesions, or areas of abnormal signal. Orbits: Normal appearance of the globes, optic nerves, and extraocular muscles. No evidence of orbital masses or abnormal signal. Sinuses: Clear paranasal sinuses. No evidence of sinusitis or mucosal thickening. Mastoid Air Cells: Clear mastoid air cells. No evidence of mastoiditis. Skull and Meninges: Normal skull morphology. IMPRESSION: Normal CT of the head without contrast. Electronically signed by Alexandria Aguirre 11-01-2024 06:36 AM Pending Results Patient Have Any Pending Studies at Discharge: No Discharge Instructions Given to Patient (Per Discharging Provider) Raphael, You were seen and evaluated by cardiology. You had a procedure done that converted your heart rate back into sinus rhythm. Cardiology recommends follow- up With electrophysiology as an outpatient and an outpatient nuclear imaging stress test. They have already scheduled that for you. Please keep close follow-up with cardiology after discharge as indicated. Cardiology also increased the dose of your losartan to 50 mg daily. They advised that you continue with your Eliquis at home twice a day. Please keep close follow up with your primary care provider after discharge. Please do not hesitate to come back to the emergency room if your symptoms worsen or return. It was a pleasure taking care of you while you were here. Total Time Total Time Spent Total Time Spent (In Minutes): 60
[2024-11-01 17:17] VITALS: BP 163/80
[2024-11-01] MEDS ORDERED: guaiFENesin 600 MG TABCR PO SCH (21:00)
[2024-11-02] MEDS ORDERED: LOSARTAN POTASSIUM 25 MG TAB PO SCH (09:00)
--- OUTSIDE RECORDS SUMMARY | 2024-11-02 12:33 | External Medical Summary | Summary of Care ---
Author Name Unknown Organization [facility] Address [address] [facility] [place] [address] Phone [phone] Care Team Providers Care Support Director Name Role Phone Amaya Oro Primary Care Provider +1- [phone] Reason for Referral * Evaluate & Treat - Unlimited Visits (Within 10 days (routine)) - Authorized Specialty Diagnoses / Procedures Referred By Deepthi toth Referred To Contact Sleep Medicine / Sleep Disorders Diagnoses Symptomatic bradycardia Marilia Alfred PA-C [address] [place] [address] Phone: tel: fax: Referral ID Status Reason Start Date Expiration Date Visits Requested Visits Authorized [id number] Authorized Specialty Services Required 4 2 2 Question Answer Referral Priority Within 10 days (routine) Where should this appointment be scheduled? [facility] Sleep Apnea Testing and Management Does the patient snore and/or gasp at night or has been told they stop breathing at night? Unknown Reason for Visit * Reason Onset Date Comments Abnormal Test Results 10/12/2024 Encounter Details Date Type Department Care Team (Late st Contact Info) Description 10/12/2024 Telephone [facility]iologyM[facility] [address] [address] Marilia Alfred PA-C [address] [place] [id number] Abnormal Test Results Allergies No known active allergiesdocumented as of this encounter (statuses as of 10/15/2024) Medications Calcium Polycarbophil 625 MG Oral Tablet Take 1 Tablet by mouth in the morning. 6 Active Multiple Vitamins-Minerals (MULTIVITAMIN MEN) TABS Take 1 Tab by mouth daily. Active Acetaminophen ER 650 MG Oral Tablet Extended Release Take by mouth. 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 Apply to the affected shoulder and hands. 350 g 3 3 Active Losartan Potassium 25 MG Oral Tablet (Cozaar)Indication s:Hypertension goal BP (blood pressure) < 140/90 Take 1 Tablet by mouth in the morning. 90 Tablet 3 4 Active Eliquis 5 MG Oral Tablet (Apixaban)Indicati ons:Paroxysmal atrial fibrillation (HCC) TAKE 1 TABLET TWICE A DAY 180 Tablet 3 4 Active Atorvastatin Calcium 10 MG Oral Tablet (Lipitor)Indicatio ns:Dyslipidemia, goal LDL below 160 TAKE 1 TABLET DAILY 90 Tablet 3 4 Active amLODIPine Besylate 2.5 MG Oral Tablet (Norvasc) Take 1 Tablet by mouth in the morning. 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 ADVANCE DIRECTIVE INFORMATION 05/10/2006 09/24/2024 Overview (05/10/2006): Pt took booklet. PURE HYPERCHOLESTEROLEM 05/06/199910/21 Overview (10/30/2009): Per Lipid Taxonomy. Lateral epicondylitis 05/06/19992009 documented as of this encounter (statuses as of 10/15/2024) Immunizations Name Administration Dates Next Due COVID-19 mRNA, LNP-s, No Pre serve, 2-Dose Series (Pfizer) 12/07/2021,02/24/2021,02/03/2021 Diptheria/Tetanus (Adult) 05/06/1999 TDAP (age 10 and older)(Boostrix) 04/25/2018 TDAP, Age 7 and older, IM (Adacel) 10/23/2008 Zoster Vaccine Recombinant (Shingrix) 01/09/2024 ,11/07/2023 documented as of this encounter Social History Tobacco Use Types Packs/Day Years Used Date Smoking Tobacco: Former Cigarettes 0.5 4 0 04/21/1980 - 04/21/1984 Smokeless Tobacco: Former Quit: 04/21/1988 Alcohol Use Standard Drinks/Week Comments Yes 0 (1 standard drink = 0.6 oz pur e alcohol) one or two on a weekend PHQ-2 Answer Date Recorded PHQ Adult Total Score 2 04/12/2023 Hunger Vital Sign Answer Date Recorded Within the past 12 months, y ou worried that your food would run out before you got the money to buy more. Never true 05/07/20 24 Within the past 12 months, t he food you bought just didn't last and you didn't have money to get more. Never true 05/07/2024 Childcare Answer Date Recorded Do you feel overwhelmed with taking care of a child, family member or friend? No 05/07/2024 Does your family need help f inding childcare? (Household - for ages 0-17 years) Not on file 05/07/2024 Clothing Answer Date Recorded Have you been unable to get clothing when it was really needed? No 05/07/2024 Is your family able to get c lothes or diapers when needed? (Household - for ages 0-17 years) Not on file 05/07/2024 Personal Safety Answer Date Recorded Do you feel unsafe or have concerns for your saf ety? No 05/07/2024 Do you have concerns for you r family's safety? (Household - for ages 0-17 years) Not on file 05/07/2024 Utilities Answer Date Recorded Do you have trouble paying y our heating, water, or electric bill? No 05/07/2024 Is your family able to pay t he heat, water, or electric bill? (Household - for ages 0-17 years) Not on file 05/07/2024 Does your family have access to good internet? (Household - for ages 0-17 years) Not on file 05/07/2024 Employment Status Answer Date Recorded Are you unemployed or without regular income? No 05/07/2024 Does the household have a re gular source of income? (Household - for ages 0-17 years) Not on file 05/07/2024 Social Connections Answer Date Recorded How often do you feel lonely or isolated from th ose around you? Never 05/07/2024 Financial Resource Strain Answer Date R ecorded Do you have any trouble payi ng for your medications, or do you think you might in the future? No 05/07/2024 Does your family have troubl e paying for medicine? (Household - for ages 0-17 years) Not on file 05/07/2024 Transportation Needs Answer Date Record ed READ ONLY Do you have troubl e getting a ride to medical visits or work? Never True 05/07/2024 Does your family have a hard time getting a ride to doctors visits? (Household - for ages 0-17 years) Not on file 05/07/2024 Has lack of transportation k ept you from medical appointments, meetings, work, or from getting things needed for daily living? Check all that apply. (Adult - for ages 18 years and over) Not on file 05/07/2024 Do you (or your family) have trouble finding or paying for a ride (transportation)? (Household - for ages 0-17 years) Not on file 05/07/2024 Housing Stability Answer Date Recorded Do you currently live in a s helter or have no steady place to sleep at night? No 05/07/2024 READ ONLY Do you think you a re at risk of becoming homeless? No 05/07/2024 Does your family worry about paying for your home or becoming homeless? (Household - for ages 0-17 years) Not on file 0 05/07/2024 Are you homeless or worried that you might be in the future? (Adult - for ages 18 years and over) Not on file Are you (or your family) thelma eless or worried that you might be in the future? (Household - for ages 0-17 years) Not on file Food Insecurity Answer Date Recorded Do you need food for this week? No 05/07/2024 Are you able to get enough f ood for your family? (Household - for ages 0-17 years) Not on file 05/07/2024 Does your family need food t his week? (Household - for ages 0-17 years) Not on file 05/07/2024 Do you always have enough fo od for your family? (Household - for ages 0-17 years) Not on file 05/07/2024 Sex and Gender Information Value Date Recorded Sex Assigned at Male 05/05/2020 8:38 AM EDT Legal Sex Male 5:57 AM EST Gender Identity Male 05/05/2020 8:38 AM EDT Sexual Orientation Straight 05/05/2020 8: 38 AM EDT Occupation Industry Job Start Date Job End Date self-employed [employer] Not on file Not on file Not on file documented as of this encounter Miscellaneous Notes * Telephone Encounter - Jose Mcmahan LPN - 10/12/2024 4:12 PM EST Please see patient's MyChart message. * Addendum Note - Marilia Alfred PA-C - 10/12/2024 2:53 PM ESTAddended by: MARILIA ALFRED on: 10/12/2024 02:53 PM Modules accepted: Orders * Telephone Encounter - Marilia Alfred PA-C - 10/12/2024 2:53 PM EST Order signed. * Addendum Note - Jose Mcmahan LPN - 10/12/2024 2:44 PM ESTAddended by: JOSE MCMAHAN on: 10/12/2024 02:44 PM Modules accepted: Orders * Telephone Encounter - Jose Mcmahan LPN - 10/12/2024 2:44 PM EST Referral pended. * Telephone Encounter - Michael Velasquez PA-C - 10/12/2024 2:24 PM EST Events on the Zio monitor occurred in association with normal sinus rhythm, sinus bradycardia, sensed atrial and ventricular ectopy, and one four beat run of supraventricular tachycardia. Agree with Sleep Medicine follow-up. Having never evaluated this patient before, will defer further recommendations to Ms. Alfred. Joseph, Michael * Telephone Encounter - Jose Mcmahan LPN - 10/12/2024 2:21 PM EST Please see patient's MyChart message. Sent patient a [employer] reply. Awaiting respond to place referral to sleep medicine, * Telephone Encounter - Jose Mcmahan LPN - 10/12/2024 2:03 PM EST Sent patient a [employer] message to make aware. ----- Message from Michael Velasquez sent at 10/12/2024 1:48 PM EST ----- Zio findings similar to prior. Patient evaluated by EP at [facility] on 12/26/2023, not felt to have Tachy-Wes Syndrome. No overt indication for pacemaker implantation yet though patient will likely require in his lifetime. Recommend initiation of CPAP therapy instead of the dental appliance. Avoid AV flor blockers * Telephone Encounter - Marilia Alfred PA-C - 10/12/2024 1:12 PM EST Will await final Zio read, will consider EP consult. * Telephone Encounter - Shanita Montero CMA - 10/12/2024 8:44 AM EST Zio calling with prelim results. Notification for symptomatic bradycardia. 40bpm, lasting 30 seconds. Page 20 of chart 5. Report posted. documented in this encounter Plan of Treatment Upcoming Encounters Date Type Department Care Team (Late st Contact Info) Description 10/22/2024 9:40 AM EST Telemedicine Sleep Disorders Medicine Macy James [address] [address] Luciana Smith MD [address] [place] [address] [place] [address] 11/26/2024 8:00 AM EST Office Visit Family Practice [facility] [address] [facility] [place] [address] Franklyn Nelson DO [address] [facility] [place] [address] 12/04/2024 8:00 AM EST Office Visit Cardiology, [facility] [address] [facility] [place] [address] Marilia Alfred PA-C [address] [facility] [place] [address] Scheduled Procedures Name Priority Associated Diagnoses Date/Ti me COLONOSCOPY FLEXIBLE PROXIMA L DIAGNOSTIC Recall Special screening for malignant neoplasms, colon Scheduled Referrals Name Type Priority Associated Diagnoses Orde r Schedule SLEEP MEDICINE REFERRAL OP Referral Within 10 days (routine) Symptomatic bradycardia Ordered: 10/12/2024 Health Maintenance Due Date Last Done Comments Cologuard 2004 Fecal Occult Blood Test 2004 Sigmoidoscopy 2004 Depression Screening 04/12/2024 04/12/2023 COVID-19 Vaccine ( season) 2024 12/07/2021, 02/24/2021, 02/03/2021 Influenza Vaccine (FLU shot) (#1) 2024 GFR 11/07/2024 11/07/2023, 03/22, 09/21/2022, Additional history exists HbA1c 11/07/2024 11/07/2023, 03/22, 09/21/2022, Additional history exists Colonoscopy 06/03/2025 06/03/2015, 06/03/2015 Colorectal Cancer Screening 06/03/2025 Albumin/Creatinine Ratio 11/07/2026 023, 04/12/2023, 09/21/2022, Additional history exists DTap/Tdap Vaccines (3 - Td or Tdap) 04/25/2028 04/25/2018, 10/23/2008, 05/06/1999 Lipid Panel 11/07/2028 11/07/2023, 03/22, 09/21/2022, Additional history exists Zoster Vaccines Completed 01/09/2024, 11/07/2023 HPV (Gardasil) Vaccine Aged Out No lo nger eligible based on patient's age to complete this topic Hepatitis B Vaccine Aged Out No longe r eligible based on patient's age to complete this topic MENINGOCOCCAL (MENACTRA/MENVEO) Aged Out No longer eligible based on patient's age to complete this topic Pneumococcal Vaccine: Pediatrics (0 to 5 Years) and At-Risk Patients (6 to 64 Years) Aged Out No longer eligible based on patient's age to complete this topic documented as of this encounter Medical Devices Implanted Type Area Automatic Steel Tie Adjuster Device Identifier Shelf Expiration Date Model / Serial / Lot Mesh 3dmax 3.1x5.3in Lft Med - [id number] Implanted:Qty: 1 on 07/10/2021 by Jayant Schroeder MD at OR [facility] Left: Groin CR BARD : DAVOL 12/18/2025 [id number] / / [id number] Description:Inguinal area documented as of this encounter Visit Diagnoses Diagnosis Symptomatic bradycardia- Primary Other specified cardiac dysrhythmias documented in this encounter Advance Directives * Full Code (Latest Code Status on File) Date Activated Date Inactivated Comments 07/10/2021 10:08 AM 07/10/2021 5:39 PM This order reflects the patients wishes and were consensually agreed upon. Care Teams Support Director Relationship Specialty Start Date End Date Amaya Oro CRNP [address] [facility] [place] [address] PCP - General Nurse Practitioner 05/31/24 documented as of this encounter
--- OUTSIDE RECORDS SUMMARY | 2024-11-02 12:33 | External Medical Summary | Summary of Care ---
Author Name Unknown Organization [facility] Address [address] [place] [address] Phone [phone] Care Team Providers Care Glass Belt Sander Name Role Phone Amaya Oro Primary Care Provider +1- [phone] Reason for Visit * Reason Onset Date Comments Durable Medical Equipment 10/22/2024 Autopa p Setup Encounter Details Date Type Department Care Team (Late st Contact Info) Description 10/22/2024 Telephone Sleep Disorders, [address] [address] Luciana Smith MD [address] [place] [address] Durable Medical Equipment (Autopap Setup ) Allergies No known active allergiesdocumented as of this encounter (statuses as of 10/23/2024) Medications Calcium Polycarbophil 625 MG Oral Tablet [...] as of this encounter (statuses as of 10/23/2024) Active Problems Problem Noted Date Diagnosed Date VALENCIA (obstructive sleep apnea) 05/21/2024 Prediabetes 11/02/2021 Overview: Per Prediabetes protocol Elevated blood pressure, situational 03/30/2017 Paroxysmal atrial fibrillation 03/30/2017 Bronchitis, complicated 02/05/2016 Chronic rhinitis 02/05/2016 Dyslipidemia, goal LDL below 160 11/13/2014 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 Can you please [facility] does not participate with the patient's insurance. Thanks, Alli Escobedo RRT * Telephone Encounter - Adriana Clark OSA - 10/23/2024 8:54 AM EST Please send to another DME * Telephone Encounter - Camilo Escobedo RRT - 10/22/2024 10:32 AM EST Adriana/Rosetta, ?? Received orders to setup Raphael Everett on an autoPAP unit. Alli Ruiz * Telephone Encounter - Jeffrey Teressa VALENCIA - 10/22/2024 10:30 AM EST DME order for CPAP, GSS requested. Please review and assist if Pt qualifies. documented in this encounter Plan of Treatment Upcoming Encounters Date Type Department Care Team (Late st Contact Info) Description 11/26/2024 8:00 AM EST Office Visit Family Practice [facility] [address] [facility] [place] [address] Franklyn Nelson DO [address] [place] [address] 12/04/2024 8:00 AM EST Office Visit Cardiology, [facility] [address] [facility] [place] [address] Marilia Gambino PA-C [address] [place] [address] Scheduled Procedures Name Priority Associated Diagnoses Date/Ti me COLONOSCOPY FLEXIBLE PROXIMA L DIAGNOSTIC Recall Special screening for malignant neoplasms, colon Health Maintenance Due Date Last Done Comments [...] this encounter Medical Devices Implanted Type Area Mechanics Supervisor Device Identifier Shelf Expiration Date Model / Serial / Lot Mesh 3dmax 3.1x5.3in t Med - [id number] Implanted:Qty: 1 on 07/10/2021 by Jayant Schroeder MD at OR [facility] Left: Groin CR BARD : DAVOL 12/18/2025 [id number] / / [id number] Description:Inguinal area documented as of this encounter Advance Directives * Full Code (Latest Code Status on File) Date Activated Date Inactivated Comments 07/10/2021 10:08 AM 07/10/2021 5:39 PM This order reflects the patients wishes and were consensually agreed upon. Care Teams Glass Belt Sander Relationship Specialty Start Date End Date Amaya Oro CRNP [address] [address] PCP - General Nurse Practitioner 05/31/24 documented as of this encounter
--- OUTSIDE RECORDS SUMMARY | 2024-11-02 12:33 | External Medical Summary | Summary of Care ---
Author Name Unknown Organization [facility] Address [address] [facility] [address] Phone [phone] Care Team Providers Care Batch Still Operator Name Role Phone Amaya Oro Primary Care Provider +1- [phone] Reason for Visit * Reason Comments eRx-Medication Refill Encounter Details Date Type Department Care Team (Late st Contact Info) Description 10/25/2024 Refill Cardiology, [facility] 132 [facility] [place] [address] Marilia Gambino [facility]-C [facility] [address] Hypertension goal BP (blood pressure) < 140/90 Allergies No known active allergiesdocumented as of this encounter (statuses as of 10/27/2024) Medications Calcium Polycarbophil 625 MG Oral Tablet Take 1 Tablet by mouth in the morning. 01/26/20 16 Active Multiple Vitamins-Minerals (MULTIVITAMIN MEN) TABS Take 1 Tab by mouth daily. Active Acetaminophen ER 650 MG Oral Tablet Extended Release Take by mouth. TAKE 2 TABLETS IN THE AM AND 1 TABLET IN THE PM Active Diclofenac Sodium 1 % External Gel (Voltaren)Indicat ions:Osteoarthrit is of left shoulder due to rotator cuff injury,Injury of left shoulder, initial encounter Apply topically to affected area 3 times a day as needed for Pain, Moderate. Apply to the affected shoulder and hands. 350 g 3 04/12/20 23 Active Eliquis 5 MG Oral Tablet (Apixaban)Indicat ions:Paroxysmal atrial fibrillation (HCC) TAKE 1 TABLET TWICE A DAY 180 Tablet 3 09/04/20 24 Active Atorvastatin Calcium 10 MG Oral Tablet (Lipitor)Indicati ons:Dyslipidemia, goal LDL below 160 TAKE 1 TABLET DAILY 90 Tablet 3 09/18/20 24 Active amLODIPine Besylate 2.5 MG Oral Tablet (Norvasc) Take 1 Tablet by mouth in the morning. 90 Tablet 3 10/17/20 24 Active Losartan Potassium 25 MG Oral Tablet (Cozaar)Indicatio ns:Hypertension goal BP (blood pressure) < 140/90 TAKE 1 TABLET IN THE MORNING 90 Tablet 10/25/20 24 Active Losartan Potassium 25 MG Oral Tablet (Cozaar)Indicatio ns:Hypertension goal BP (blood pressure) < 140/90 Take 1 Tablet by mouth in the morning. 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 documented as of this encounter (statuses as of 10/27/2024) Resolved Problems Problem Noted Date Diagnosed Date Resolved Date Viral URI with cough 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 Patient was notified. Successfully contacted patient and provided [facility] message. * Telephone Encounter - David Hayden [facility] - 10/25/2024 3:01 PM ESTSigned Prescriptions: Disp Refills Losartan Potassium 25 MG Oral Tablet (Coza*90 Tab*0 Sig: TAKE 1 TABLET IN THE MORNING Authorizing Provider: MARILIA GAMBINO Ordering User: DAVID HAYDEN * Telephone Encounter - David Hayden RPh - 10/25/2024 3:00 PM EST Provided 90 days supply with 0 refill(s) until upcoming appointment. Per refill protocol patient should have Potassium and Creatinine on file within past year. Labs due mid October. Lab orders placed by PCP. Please contact patient to advise of labs ordered for blood draw. Fasting is not required. Advise toobtain labs before requesting the next refill. Thank you, David Hayden, PharmD Clinical Pharmacist [facility] [phone] 10/25/2024, 3:00 PM documented in this encounter Plan of Treatment Upcoming Encounters Date Type Department Care Team (Late st Contact Info) Description 11/26/2024 8:00 AM EST Office Visit [facility] [place] [address] Franklyn Nelson DO 132 [facility] [place] [address] 12/04/2024 8:00 AM EST Office Visit Cardiology, [facility] [address] [facility] [place] [address] Marilia Gambino PA-C [address] [place] [address] [place] [address] Scheduled Procedures Name Priority Associated Diagnoses Date/Ti [...] this encounter Medical Devices Implanted Type Area Airways Operations Specialist Device Identifier Shelf Expiration Date Model / Serial / Lot Mesh 3dmax 3.1x5.3in [facility] - [id number] Implanted:Qty: 1 on 07/10/2021 by Jayant Schroeder MD at OR [facility] Left: Groin CR BARD : DAVOL 12/18/2025 [id number] / / [id number] Description:Inguinal area documented as of this encounter Visit Diagnoses Diagnosis Hypertension goal BP (blood pressure) < 140/90 Unspecified essential hypertension documented in this encounter Advance Directives * Full Code (Latest Code Status on File) Date Activated Date Inactivated Comments 07/10/2021 10:08 AM 07/10/2021 5:39 PM This order reflects the patients wishes and were consensually agreed upon. Care Teams Batch Still Operator Relationship Specialty Start Date End Date Amaya Oro CRNP [address] [place] [address] PCP - General Nurse Practitioner 05/31/24 documented as of this encounter
--- OUTSIDE RECORDS SUMMARY | 2024-11-02 12:33 | External Medical Summary | Summary of Care ---
Author Name Unknown Organization [facility] Address [address] [place] [address] Phone [phone] Care Team Providers Care Mucker Operator Name Role Phone Amaya Oro Primary Care Provider +1- [phone] Reason for Visit * Reason Onset Date Comments Durable Medical Equipment 10/22/2024 Autopa p Setup Encounter Details Date Type Department Care Team (Late st Contact Info) Description 10/22/2024 Telephone Sleep Disorders, [address] [address] Luciana Smith MD [address] [place] [address] Durable Medical Equipment (Autopap Setup [...] Date Viral URI with cough 02/05/2016 018 [facility] current use of ant icoagulant therapy 02/05/2016 [...] encounter Miscellaneous Notes * Telephone Encounter - Adriana Clark OSA - 10/23/2024 8:54 AM EST Please send to another DME * Telephone Encounter - Camilo Escobedo RRT - 10/22/2024 10:32 AM EST Adriana/Rosetta, ?? Received orders to setup Raphael Everett on an autoPAP unit. Alli Ruiz * Telephone Encounter - Teressa Murphy OSA - 10/22/2024 10:30 AM EST DME order for CPAP, GSS requested. Please review and assist if Pt qualifies. documented in this encounter Plan of Treatment Upcoming Encounters Date Type Department Care Team (Keren uriostegui Contact Info) Description 11/26/2024 8:00 AM EST Office Visit Family Practice [facility] [address] [place] [address] Franklyn Nelson, [address] [place] [address] 12/04/2024 8:00 AM EST Office Visit Cardiology, [facility] [address] [place] [address] Marilia Gambino PA-C [address] [place] [address] Scheduled Procedures Name Priority Associated Diagnoses Date/Ti [...] this encounter Medical Devices Implanted Type Area Electrical Line Mechanic Device Identifier Shelf Expiration Date Model / Serial / Lot Mesh 3dmax 3.1x5.3in t Med - [id number] Implanted:Qty: 1 on 07/10/2021 by Jayant Schroeder MD at OR [facility] Left: Groin CR BARD : DAVOL 12/18/2025 [id number] / / [id number] Description:Inguinal area documented as of this encounter Advance Directives * Full Code (Latest Code Status on File) Date Activated Date Inactivated Comments 07/10/2021 10:08 AM 07/10/2021 5:39 PM This order reflects the patients wishes and were consensually agreed upon. Care Teams Mucker Operator Relationship Specialty Start Date End Date Amaya Oro CRNP [address] [place] [address] PCP - General Nurse Practitioner 05/31/24 documented as of this encounter
--- OUTSIDE RECORDS SUMMARY | 2024-11-02 12:33 | External Medical Summary | Summary of Care ---
Author Name Unknown Organization [facility] Address [address] [facility] [place] [address] Phone [phone] Care Team Providers Care Computer Technologist Name Role Phone Amaya Oro Primary Care Provider +1- [phone] Reason for Referral * Evaluate & Treat - Unlimited Visits (Within 10 days (routine)) - Authorized Specialty Diagnoses / Procedures Referred By Deepthi toth Referred To Contact Sleep Medicine / Sleep Disorders Diagnoses Symptomatic bradycardia Marilia Alfred PA-C [address] [place] [address] Phone: tel: fax: Referral ID Status Reason Start Date Expiration Date Visits Requested Visits Authorized [id number] Authorized Specialty Services Required 4 2 2 [...] Description 10/12/2024 Telephone Cardiology[facility] [address] [place] [address] Marilia Alfred PA-C [address] [id number] Abnormal Test Results Allergies No known active allergiesdocumented as of this encounter (statuses as of 10/12/2024) Medications Calcium Polycarbophil 625 MG Oral Tablet [...] as of this encounter (statuses as of 10/12/2024) Active Problems Problem Noted Date Diagnosed Date VALENCIA (obstructive sleep apnea) 05/21/2024 Prediabetes 11/02/2021 Overview: Per Prediabetes protocol Elevated blood pressure, situational 03/30/2017 Paroxysmal atrial fibrillation 03/30/2017 Bronchitis, complicated 02/05/2016 Chronic rhinitis 02/05/2016 Dyslipidemia, goal LDL below 160 11/13/2014 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 Alfred. Mihcael Ruiz * Telephone Encounter - Jose Mcmahan LPN - 10/12/2024 2:21 PM EST Please see patient's MyChart message. Sent patient a MyChart reply. Awaiting respond to place referral to sleep medicine, * Telephone Encounter - Jose Mcmahan LPN - 10/12/2024 2:03 PM EST Sent patient a Architurn message to make aware. ----- Message from Michael Velasquez sent at 10/12/2024 1:48 PM EST ----- Zio findings similar to prior. Patient evaluated by EP at [facility] [place] 12/26/2023, not felt to have Tachy-Wes [...] 8:00 AM EST Office Visit Family Practice [facility] [address] [place] [address] Franklyn Nelson DO [address] [place] [address] 12/04/2024 8:00 AM EST Office Visit Cardiology, [facility] [address] [place] [address] Marilia Alfrde PA-C [address] [place], [place] [address], [place] [address] Scheduled Procedures Name Priority Associated Diagnoses Date/Ti [...] this encounter Medical Devices Implanted Type Area Valet Parker Device Identifier Shelf Expiration Date Model / Serial / Lot Mesh 3dmax 3.1x5.3in Lft [facility] - [id number] Implanted:Qty: 1 on 07/10/2021 by Jayant Schroeder MD at OR [facility] Left: Groin CR BARD : DAVOL 12/18/2025 [id number] / / [id number] Description:Inguinal area documented as of this encounter Visit Diagnoses Diagnosis Symptomatic bradycardia- Primary Other specified cardiac dysrhythmias documented in this encounter Advance Directives * Full Code (Latest Code Status on File) Date Activated Date Inactivated Comments 07/10/2021 10:08 AM 07/10/2021 5:39 PM This order reflects the patients wishes and were consensually agreed upon. Care Teams Computer Technologist Relationship Specialty Start Date End Date mAaya Oro CRNP [address] [facility] [place] [address] PCP - General Nurse Practitioner 05/31/24 documented as of this encounter
--- OUTSIDE RECORDS SUMMARY | 2024-11-02 12:33 | External Medical Summary | Summary of Care ---
Author Name Unknown Organization [facility] Address [address] [place] [address] Phone [phone] Care Team Providers Care Catering Truck Driver Name Role Phone Amaya Oro Primary Care Provider +1- [phone] Reason for Visit * Reason Onset Date Comments Durable Medical Equipment 10/22/2024 Autopa p Setup Encounter Details Date Type Department Care Team (Late st Contact Info) Description 10/22/2024 Telephone Sleep Disorders, [address] [address] Luciana Smith MD 400 [place] [address] Durable Medical Equipment (Autopap Setup ) Allergies No known active allergiesdocumented as of this encounter (statuses as of 10/22/2024) Medications Calcium Polycarbophil 625 MG Oral Tablet [...] as of this encounter (statuses as of 10/22/2024) Active Problems Problem Noted Date Diagnosed Date VALENCIA (obstructive sleep apnea) 05/21/2024 Prediabetes 11/02/2021 Overview: Per Prediabetes protocol Elevated blood pressure, situational 03/30/2017 Paroxysmal atrial fibrillation 03/30/2017 Bronchitis, complicated 02/05/2016 Chronic rhinitis 02/05/2016 Dyslipidemia, goal LDL below 160 11/13/2014 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 Thanks, Alli * Telephone Encounter - Teressa Murphy OSA - 10/22/2024 10:30 AM EST DME order for CPAP, GSS requested. Please review and assist if Pt qualifies. documented in this encounter Plan of Treatment Upcoming Encounters Date Type Department Care Team (Late st Contact Info) Description 11/26/2024 8:00 AM EST Office Visit Family Practice [facility] [address] [place] [address] Franklyn Nelson, [address] [place] [address] 12/04/2024 8:00 AM EST Office Visit Cardiology, [facility] [address] [place] [address] Marilia Gambino PA-C [address] [place] [address] Scheduled Procedures Name Priority Associated Diagnoses Date/Ti [...] this encounter Medical Devices Implanted Type Area Surgical Nurse Practitioner Device Identifier Shelf Expiration Date Model / Serial / Lot Mesh 3dmax 3.1x5.3in [facility] Med - [id number] Implanted:Qty: 1 on 07/10/2021 by Jayant Schroeder MD at OR [facility] Left: Groin CR BARD : DAVOL 12/18/2025 [id number] / / [id number] Description:Inguinal area documented as of this encounter Advance Directives * Full Code (Latest Code Status on File) Date Activated Date Inactivated Comments 07/10/2021 10:08 AM 07/10/2021 5:39 PM This order reflects the patients wishes and were consensually agreed upon. Care Teams Catering Truck Driver Relationship Specialty Start Date End Date Amaya Oro CRNP [address] [place] [address] PCP - General Nurse Practitioner 05/31/24 documented as of this encounter
--- OUTSIDE RECORDS SUMMARY | 2024-11-02 12:33 | External Medical Summary | Summary of Care ---
Author Name Unknown Organization [facility] Address [address] [facility] [place] [address] Phone [phone] Care Team Providers Care Parts Data Writer Name Role Phone Amaya Oro Primary Care Provider +1- [phone] Reason for Referral * Evaluate & Treat - Unlimited Visits (Within 10 days (routine)) - Authorized Specialty Diagnoses / Procedures Referred By Deepthi toth Referred To Contact Sleep Medicine / Sleep Disorders Diagnoses Symptomatic bradycardia Marilia Alfred PA-C [address] [place] [address] Phone: tel: fax: Referral ID Status Reason Start Date Expiration Date Visits Requested Visits Authorized [id number] Authorized Specialty Services Required 4 2 2 [...] Description 10/12/2024 Telephone [facility]iology[facility] [address] [place] [address] Marilia Alfred PA-C [address] [place] [id number] Abnormal Test Results Allergies No known active [...] Date Viral URI with cough 02/05/2016 018 intermediate project manager current use of ant icoagulant therapy 02/05/2016 [...] see patient's MyChart message. Sent patient a RelayRideshart reply. Awaiting respond to place referral to sleep medicine, * Telephone Encounter - Jose Mcmahan LPN - 10/12/2024 2:03 PM EST Sent patient a RelayRideshart message to make aware. ----- Message from Michael Velasquez sent at 10/12/2024 1:48 PM EST ----- Zio findings similar to prior. [place] [facility] [place], not felt to have Tachy-Wes [...] Description 11/26/2024 8:00 AM EST Office Visit [facility] [address] [place] [address] Franklyn Nelson, [address] [place] [address] 12/04/2024 8:00 AM EST Office Visit Cardiology, [facility] 132 [facility] [place] [address] Marilia Alfred PA-C [address] [place] [address] Scheduled Procedures Name Priority Associated Diagnoses Date/Ti [...] this encounter Medical Devices Implanted Type Area Media Technician Device Identifier Shelf Expiration Date Model / Serial / Lot Mesh 3dmax 3.1x5.3in Lft Med - [id number] Implanted:Qty: 1 on 07/10/2021 by Jayant Schroeder MD at OR [facility] Left: Groin CR BARD : DAVOL 12/18/2025 [id number] / / [id number] Description:Inguinal area documented as of this encounter Visit Diagnoses Diagnosis Symptomatic bradycardia- Primary Other specified cardiac dysrhythmias documented in this encounter Advance Directives * Full Code (Latest Code Status on File) Date Activated Date Inactivated Comments 07/10/2021 10:08 AM 07/10/2021 5:39 PM This order reflects the patients wishes and were consensually agreed upon. Care Teams Parts Data Writer Relationship Specialty Start Date End Date Amaya Oro CRNP [address] [place] [address] PCP - General Nurse Practitioner 05/31/24 documented as of this encounter
--- OUTSIDE RECORDS SUMMARY | 2024-11-02 12:33 | External Medical Summary | Summary of Care ---
Author Name Unknown Organization [facility] Address [address] [facility] [address] Phone [phone] Care Team Providers Care Craft Demonstrator Name Role Phone Amaya Oro Primary Care Provider +1- [phone] Reason for Visit * Reason Comments New Med Request Encounter Details Date Type Department Care Team (Late st Contact Info) Description 10/14/2024 Refill Cardiology, [facility] [address] [place] [address] Khushboo Fisher PA-C [address] [place] [address] Allergies No known active allergiesdocumented as of this encounter (statuses as of 10/17/2024) Medications Calcium Polycarbophil 625 MG Oral Tablet [...] hands. 350 g 3 04/12/20 23 Active Losartan Potassium 25 MG Oral Tablet (Cozaar)Indicatio ns:Hypertension goal BP (blood pressure) < 140/90 Take 1 Tablet by mouth in the morning. 90 Tablet 3 12/01/19 24 Active Eliquis 5 MG Oral Tablet (Apixaban)Indicat [...] morning. 90 Tablet 3 10/17/20 24 Active amLODIPine Besylate 2.5 MG Oral Tablet (Norvasc) Take 1 Tablet by mouth in the morning. 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 documented as of this encounter (statuses as of 10/17/2024) Resolved Problems Problem Noted Date Diagnosed Date Resolved Date Viral URI with cough 02/05/2016 018 skilled nursing current use of ant icoagulant therapy 02/05/2016 [...] as of this encounter (statuses as of 10/17/2024) Immunizations Name Administration Dates Next Due COVID-19 [...] encounter Miscellaneous Notes * Telephone Encounter - Praveen Carter RPh - 10/17/2024 8:51 AM ESTSigned Prescriptions: Disp Refills amLODIPine Besylate 2.5 MG Oral Tablet (No*90 Tab*3 Sig: Take 1 Tablet by mouth in the morning.Authorizing Provider: KHUSHBOO FISHER User: PRAVEEN CARTER--- * Telephone Encounter - Praveen Carter RPh - 10/17/2024 8:48 AM EST Rerouting prescription to requested pharmacy ThanksPraveen, PharmD Clinical Pharmacist [facility] 10/17/2024, 8:51 AM documented in this encounter Plan of Treatment Upcoming Encounters Date Type Department Care Team (Late st Contact Info) Description 10/22/2024 9:40 AM EST Telemedicine Sleep Disorders Medicine [facility] [address] [place] [id number] Luciana Smith MD [address] [place] [address] 11/26/2024 8:00 AM EST Office Visit Family Practice [facility] 132 [facility] [place] [address] Franklyn Nelson DO 132 [facility] [place] [address] 12/04/2024 8:00 AM EST Office Visit Cardiology, [facility] 132 [facility] [place] [address] Marilia Gambino PA-C [address] [place] [address] Scheduled Procedures Name Priority Associated Diagnoses Date/Ti [...] this encounter Medical Devices Implanted Type Area Bookkeeping Teacher Device Identifier Shelf Expiration Date Model / Serial / Lot Mesh 3dmax 3.1x5.3in t Med - [id number] Implanted:Qty: 1 on 07/10/2021 by Jayant Schroeder MD at OR [facility] Left: Groin CR BARD : DAVOL 12/18/2025 [id number] / / [id number] Description:Inguinal area documented as of this encounter Advance Directives * Full Code (Latest Code Status on File) Date Activated Date Inactivated Comments 07/10/2021 10:08 AM 07/10/2021 5:39 PM This order reflects the patients wishes and were consensually agreed upon. Care Teams Craft Demonstrator Relationship Specialty Start Date End Date Amaya Oro CRNP [address] [place] [address] PCP - General Nurse Practitioner 05/31/24 documented as of this encounter
--- OUTSIDE RECORDS SUMMARY | 2024-11-02 12:33 | External Medical Summary | Summary of Care ---
Author Name Unknown Organization [facility] Address [address] [place] [address] Phone [phone] Care Team Providers Care Asp Developer Name Role Phone Amaya Oro Primary Care Provider +1- [phone] Reason for Visit * Reason Onset Date Comments Durable Medical Equipment 10/22/2024 Autopa p Setup Encounter Details Date Type Department Care Team (Late st Contact Info) Description 10/22/2024 Telephone Sleep Disorders, [address] [address] Luciana Smith MD [address] [place] [address] Durable Medical Equipment (Autopap Setup [...] Date Viral URI with cough 02/05/2016 018 custodial current use of ant icoagulant therapy 02/05/2016 [...] 8:00 AM EST Office Visit Family Practice [facility] [address] [place] [address] Franklyn Nelson, [address] [place] [address] 12/04/2024 8:00 AM EST Office Visit Cardiology, [facility] [address] [place] [address] Marilia Gambino PA-C [address] [place] [address] Scheduled Procedures Name Priority Associated Diagnoses Date/Ti [...] this encounter Medical Devices Implanted Type Area Terrazzo Polisher Helper Device Identifier Shelf Expiration Date Model / Serial / Lot Mesh 3dmax 3.1x5.3in [facility] Med - [id number] Implanted:Qty: 1 on 07/10/2021 by Jayant Schroeder MD at OR [facility] Left: Groin CR BARD : DAVOL 12/18/2025 [id number] / / [id number] Description:Inguinal area documented as of this encounter Advance Directives * Full Code (Latest Code Status on File) Date Activated Date Inactivated Comments 07/10/2021 10:08 AM 07/10/2021 5:39 PM This order reflects the patients wishes and were consensually agreed upon. Care Teams Asp Developer Relationship Specialty Start Date End Date Amaya Oro CRNP [address] [place] [address] PCP - General Nurse Practitioner 05/31/24 documented as of this encounter
--- OUTSIDE RECORDS SUMMARY | 2024-11-02 12:33 | External Medical Summary | Summary of Care ---
Author Name Unknown Organization [facility] Address [address] [facility] [place] [address] Phone [phone] Care Team Providers Care Apartment Maintenance Technician Name Role Phone Amaya Oro Primary Care Provider +1- [phone] Reason for Visit * Reason Onset Date Comments Durable Medical Equipment 10/22/2024 Autopa p Setup Encounter Details Date Type Department Care Team (Late st Contact Info) Description 10/22/2024 Telephone Sleep Disorders, [address] [address] Luciana Smith MD 400 [place] [address] Durable Medical Equipment (Autopap Setup [...] Date Viral URI with cough 02/05/2016 018 half-way current use of ant icoagulant therapy 02/05/2016 [...] encounter Miscellaneous Notes * Telephone Encounter - Teressa Murphy OSA - 10/23/2024 10:25 AM EST DME for CPAP submitted to [facility]. * Telephone Encounter - Camilo Escobedo RRT - 10/23/2024 9:32 AM EST Betty/Helene/Britney/Renato Gannon. Can you please input all [facility] DME does not participate with the patient's insurance. Thanks, Alli Escobedo RRT * Telephone Encounter - Adriana Clark OSA - 10/23/2024 8:54 AM EST Please send to another DME * Telephone Encounter - Camilo Escobedo, JAVIER - 10/22/2024 10:32 AM EST Adriana/Rosetta, ?? Received orders to setup Raphael Gaonaas on an autoPAP unit. Joseph, Alli * Telephone Encounter - Teressa Murphy OSA - 10/22/2024 10:30 AM EST DME order for CPAP, GSS requested. Please review and assist if Pt qualifies. documented in this encounter Plan of Treatment Upcoming Encounters Date Type Department Care Team (Late st Contact Info) Description 11/26/2024 8:00 AM EST Office Visit Family Practice [facility] 132 [facility] [place] [address] Franklyn Nelson, 132 [facility] [place] [address] 12/04/2024 8:00 AM EST Office Visit Cardiology, [facility] [address] [facility] [place] [address] Marilia Gambino PA-C 400 [facility] [place], [place] [id number] Scheduled Procedures Name Priority Associated Diagnoses Date/Ti [...] this encounter Medical Devices Implanted Type Area Gender Studies Professor Device Identifier Shelf Expiration Date Model / Serial / Lot Mesh 3dmax 3.1x5.3in [facility] - [id number] Implanted:Qty: 1 on 07/10/2021 by Jayant Schroeder MD at OR [facility] Left: Groin CR BARD : DAVOL 12/18/2025 [id number] / / [id number] Description:Inguinal area documented as of this encounter Advance Directives * Full Code (Latest Code Status on File) Date Activated Date Inactivated Comments 07/10/2021 10:08 AM 07/10/2021 5:39 PM This order reflects the patients wishes and were consensually agreed upon. Care Teams Apartment Maintenance Technician Relationship Specialty Start Date End Date Amaya Oro CRNP [address] [facility] [place] [address] PCP - General Nurse Practitioner 05/31/24 documented as of this encounter
--- OUTSIDE RECORDS SUMMARY | 2024-11-02 12:33 | External Medical Summary | Summary of Care ---
Author Name Unknown Organization [facility] Address [address] [place] [place] [address] Phone [phone] Care Team Providers Care Clinical Data Programmer Name Role Phone Amaya Oro Primary Care Provider +1- [phone] Reason for Visit * Reason Onset Date Comments Durable Medical Equipment 10/22/2024 Autopa p Setup Encounter Details Date Type Department Care Team (Late st Contact Info) Description 10/22/2024 Telephone Sleep Disorders, [address] [address] Luciana Smith MD 400 [place] [address] Durable Medical Equipment (Autopap Setup [...] Date Viral URI with cough 02/05/2016 018 prison current use of ant icoagulant therapy 02/05/2016 [...] 8:00 AM EST Office Visit Family Practice [facility] [address] [place] [address] Franklyn Nelson, [address] [place] [address] 12/04/2024 8:00 AM EST Office Visit Cardiology, [facility] [address] [place] [address] Marilia Gambino PA-C [address] [place] [address] Scheduled Procedures Name Priority Associated Diagnoses Date/Ti [...] this encounter Medical Devices Implanted Type Area Mosaic Worker Device Identifier Shelf Expiration Date Model / Serial / Lot Mesh 3dmax 3.1x5.3in [facility] Med - [id number] Implanted:Qty: 1 on 07/10/2021 by Jayant Schroeder MD at OR [facility] Left: Groin CR BARD : DAVOL 12/18/2025 [id number] / / [id number] Description:Inguinal area documented as of this encounter Advance Directives * Full Code (Latest Code Status on File) Date Activated Date Inactivated Comments 07/10/2021 10:08 AM 07/10/2021 5:39 PM This order reflects the patients wishes and were consensually agreed upon. Care Teams Clinical Data Programmer Relationship Specialty Start Date End Date Amaya Oro CRNP [address] [place] [address] PCP - General Nurse Practitioner 05/31/24 documented as of this encounter
--- OUTSIDE RECORDS SUMMARY | 2024-11-02 12:33 | External Medical Summary | Summary of Care ---
Author Name Unknown Organization [facility] Address [address] [facility] [place] [address] Phone [phone] Care Team Providers Care Floorperson Name Role Phone Amaya Oro Primary Care Provider +1- [phone] Reason for Visit * Reason Comments Follow Up * Evaluate & Treat - Unlimited Visits (Within 10 days (routine)) - Authorized Specialty Diagnoses / Procedures Referred By Deepthi t Referred To Contact Sleep Medicine / Sleep Disorders Diagnoses Symptomatic bradycardia Marilia Gambino PA-C [address] [place] [address] Phone: tel: fax: Referral ID Status Reason Start Date Expiration Date Visits Requested Visits Authorized [id number] Authorized Specialty Services Required 4 2 2 Encounter Details Date Type Department Care Team (Late st Contact Info) Description 10/22/2024 9:40 AM EST Telemedicine Sleep Disorders Medicine Macy James [address] [place] [phone] Luciana Smith MD [address] [place] [address] VALENCIA (obstructive sleep apnea)* Allergies No known active allergiesdocumented as of [...] Date Viral URI with cough 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 (Household - for ages [...] on file Are you (or your family) thlema eless or worried that you might be [...] on file documented as of this encounter Progress Notes * Luciana Smith MD - 10/22/2024 9:48 AM EST Patient location: HOME. I was in a hospital or clinic location. After connecting through televideo,patient was verified with two unique identifiers. Patient (or authorized legal automotive leasing sales representative) was then informed that this was a Telemedicine visit and being conducted confidentially over secure lines. Methods to assure confidentiality were taken. Patient acknowledged consent and understanding of pr ivacy and security of the Telemedicine visit. The patient agreed to participate. Name: Raphael Everett Sex: male : 1960 CC: F/U HPI: Patient has been using dental appliance but he is still having palpitations and feeling tired during the day. Patient is not snoring with dental appliance but still waking up multiple times. Bed time: 9 PM Wake up time: 3-4 AM Estimates hours of sleep per night: 6-7 hours Sleep position: side ESS: 11/13 ROS: Reports: Fatigue No past medical history on file. Past Surgical History: Procedure Laterality Date COLONOSCOPY, DIAGNOSTIC (RECTUM) 06/03/2015 diverticulosis, repeat 10 yrs/COLONOSCOPY FLEXIBLE PROXIMAL DIAGNOSTIC performed by Hernandez Becerril MD at ENDOSCOPY [facility] LAPAROSCOPY; REPAIR INITIAL INGUINAL HERNIA Left 07/10/2021 LAPAROSCOPY; REPAIR INITIAL INGUINAL HERNIA Left 07/10/2021 LAPAROSCOPIC REPAIR INGUINAL HERNIA INITIAL performed by Jayant Schroeder MD at OR [facility] REMOVE FOOT NERVE LESION (LIN) 10/21/2005 neuroma x 2 excised Social History Tobacco Use Smoking status: Former Current packs/day: 0.00 Average packs/day: 0.5 packs/day for 4.0 years (2.0 ttl pk-yrs) Types: Cigarettes Start date: 04/21/1980 Quit date: 04/21/1984 Years since quittin.5 Smokeless tobacco: Former Quit date: 04/21/1988 Vaping Use Vaping status: Never Used Substance Use Topics Alcohol use: Yes Comment: one or two on a weekend Drug use: No Family History Problem Relation Name Age of Onset Heart Disorder Grandfather (Maternal) age 65 Heart Disorder Grandfather (Paternal) age 65 Heart Disorder Mother valve dis Hypertension Mother Allergies as of 10/22/2024 (No Known Allergies) Current Outpatient Medications Medication Sig Dispense Refill Calcium Polycarbophil 625 MG Oral Tablet Take 1 Tablet by mouth in the morning. Multiple Vitamins-Minerals (MULTIVITAMIN MEN) TABS Take 1 Tab by mouth daily. Diclofenac Sodium 1 % External Gel (Voltaren) Apply topically to affected area 3 times a day as needed for Pain, Moderate. Apply to the affected shoulder and hands. 350 g 3 Losartan Potassium 25 MG Oral Tablet (Cozaar) Take 1 Tablet by mouth in the morning. 90 Tablet 3 Eliquis 5 MG Oral Tablet (Apixaban) TAKE 1 TABLET TWICE A DAY 180 Tablet 3 Atorvastatin Calcium 10 MG Oral Tablet (Lipitor) TAKE 1 TABLET DAILY 90 Tablet 3 amLODIPine Besylate 2.5 MG Oral Tablet (Norvasc) Take 1 Tablet by mouth in the morning. 90 Tablet 3 Acetaminophen ER 650 MG Oral Tablet Extended Release Take by mouth. TAKE 2 TABLETS IN THE AM AND 1 TABLET IN THE PM No current facility-administered medications for this visit. Physical Exam: Unable to attain due to nature of telemedicine encounter Assessment: Patient is a 63 yo gentleman with history of VALENCIA, PAF, HTN VALENCIA Auto-PAP 5-20 cmH2O Discussed the diagnosis and consequences including but not limited to i.e increased risk for hypertension, arrhthymias, stroke, congestive heart failure and . Treatment options discussed in detail, CPAP therapy explained. All questions were answered. Consider weight loss. JNC 7 lists VALENCIA as a causal risk factor for hypertension. Effective treatment of hypertension decreases cardiovascular risk/injury Recommended patient keep consistent bed/wake times and to get 7-8 hours of sleep. Reviewed good sleep hygiene. Advised patient on the dangers of drowsy driving and not to drive when drowsy. F/U in 2 months or sooner if needed. Luciana Smith MD documented in this encounter Nursing Notes * Letty Boyd LPN - 10/22/2024 9:42 AM EST Raphael Everett [id number] There is no height or weight on file to calculate BMI. Neck Circumference: inches. Current CDL License: No Compliance: AHI: DME: The patient was identified by name and date of .:yes Pt was informed this was a video only visit, and pt agreed to participate.:yes F/U positive Watchpat Study. Pt tried and failed Dental Appliance, pt is requesting discussing CPAP. [place] Sleepiness Scale Question 10/13/2024 1:45 PM EST - Filed by Patient What is the chance you will doze off in the following situation? Sitting and reading High chance of dozing Watching TV Moderate chance of dozing Sitting inactive in a public place, such as a theater or meeting Slight chance of dozing As a passenger in a car for an hour without a break Moderate chance of dozing Lying down to rest in the afternoon when circumstances permit High chance of dozing When sitting and talking to someone No chance of dozing When sitting quietly after lunch without alcohol Slight chance of dozing In a car, while stopped for a few minutes in traffic No chance of dozing Score (range: 0 - 24) 12 Functional Outcomes Of Sleep Question 10/13/2024 1:46 PM EST - Filed by Patient Please complete the following questions. Do you have difficulty concentrating because you are sleepy or tired? Yes, a little Do you have difficulty remembering things because you are sleepy or tired? No Do you have difficulty operating a motor vehicle for short distances (less than 100 miles) because you become sleepy? No Do you have difficulty operating a motor vehicle for long distances (more than 100 miles) because you become sleepy? Yes, a little Do you have difficulty visiting family or friends in their home because you become sleepy or tired?Yes, a little Has your relationship with family, friends, or work colleagues been affected because you are sleepyor tired? No Do you have difficulty watching a movie or video because you become sleepy or tired? Yes, a little Do you have difficulty being as active as you want to be in the evening because you are tired or sleepy? Yes, a little Do you have difficulty being as active as you want to be in the morning because you are tired or sleepy? No Has your mood been affected because you are sleepy or tired? Yes, a little Score (range: 10 - 40) 34 Myc Visit Accident Related Question Question 10/13/2024 1:46 PM EST - Filed by Patient Is this visit related to an accident? (i.e work, motor vehicle) No documented in this encounter Plan of Treatment Upcoming Encounters Date Type Department Care Team (Late st Contact Info) Description 11/26/2024 8:00 AM EST Office Visit Family Practice [facility] [address] [place] [address] Franklyn Nelson, [address] [place] [address] 12/04/2024 8:00 AM EST Office Visit Cardiology, [facility], [address] [place] [address] Marilia Gambino PA-C [address] [place] [address] [place] [address] Scheduled Procedures Name Priority Associated Diagnoses Date/Ti [...] this encounter Medical Devices Implanted Type Area Heavy Duty Diesel Mechanic Device Identifier Shelf Expiration Date Model / Serial / Lot Mesh 3dmax 3.1x5.3in Lft Med - [id number] Implanted:Qty: 1 on 07/10/2021 by Jayant Schroeder MD at OR [facility] Left: Groin CR BARD : DAVOL 12/18/2025 [id number] / / [id number] Description:Inguinal area documented as of this encounter Visit Diagnoses Diagnosis VALENCIA (obstructive sleep apnea)- Primary Obstructive sleep apnea (adult) (pediatric) documented in this encounter Advance Directives * Full Code (Latest Code Status on File) Date Activated Date Inactivated Comments 07/10/2021 10:08 AM 07/10/2021 5:39 PM This order reflects the patients wishes and were consensually agreed upon. Care Teams Floorperson Relationship Specialty Start Date End Date Amaya Oro CRNP [address] [place] [address] PCP - General Nurse Practitioner 05/31/24 documented as of this encounter
--- OUTSIDE RECORDS SUMMARY | 2024-11-02 12:34 | External Medical Summary | Summary of Care ---
Author Name Unknown Organization [facility] [address] [facility] [address] Phone [phone] Care Team Providers Care Unemployment Specialist Name Role Phone Amaya Oro Primary Care Provider +1- [phone] Reason for Visit * Reason Onset Date Comments Abnormal Test Results 10/12/2024 Encounter Details Date Type Department Care Team (Late st Contact Info) Description 10/12/2024 Telephone [facility] [phone] Marilia Gambino PA-C [address] [facility] [place] [address] Abnormal Test Results Allergies No known active [...] Date Viral URI with cough 02/05/2016 018 longterm current use of ant icoagulant therapy 02/05/2016 [...] 18 years and over) Not on file 06/17/202 4 Are you (or your family) thelma eless [...] encounter Miscellaneous Notes * Addendum Note - Jose Mcmahan LPN [...] before, will defer further recommendations to Ms. Gambino. Michael Ruiz * Telephone Encounter - Jose Mcmahan LPN - 10/12/2024 2:21 PM EST Please see patient's DemoHirehart message. Sent patient a DemoHirehart reply. Awaiting respond to place referral to sleep medicine, * Telephone Encounter - Jose Mcmahan LPN - 10/12/2024 2:03 PM EST Sent patient a Intematix message to make aware. ----- Message from Michael Velasquez sent at 10/12/2024 1:48 PM EST ----- Zio findings similar to prior. Patient [place] [facility] [place], not felt to have Tachy-Wes Syndrome. No overt indication for pacemaker implantation yet though patient will likely require in his lifetime. Recommend initiation of CPAP therapy instead of the dental appliance. Avoid AV flor blockers * Telephone Encounter - Marilia Gambino PA-C - 10/12/2024 1:12 PM EST Will [...] Visit Family Practice [facility] [address] [place] [address] Franklyn Nelson DO [address] [place] [address] 12/04/2024 8:00 AM EST Office Visit Cardiology, [facility] [address] [place] [address] Marilia Gambino PA-C [address] [place] [address] Scheduled Procedures Name Priority [...] this encounter Medical Devices Implanted Type Area Tufter Device Identifier Shelf Expiration Date Model / Serial / Lot Mesh 3dmax 3.1x5.3in t Med - [id number] Implanted:Qty: 1 on 07/10/2021 by Jayant Schroeder MD at OR [facility] Left: Groin CR BARD : DAVOL 12/18/2025 [id number] / / [id number] Description:Inguinal area documented as of this encounter Advance Directives * Full Code (Latest Code Status on File) Date Activated Date Inactivated Comments 07/10/2021 10:08 AM 07/10/2021 5:39 PM This order reflects the patients wishes and were consensually agreed upon. Care Teams Unemployment Specialist Relationship Specialty Start Date End Date Amaya Oro CRNP [address] [place] [address] PCP - General Nurse Practitioner 05/31/24 documented as of this encounter
--- OUTSIDE RECORDS SUMMARY | 2024-11-02 12:34 | External Medical Summary | Summary of Care ---
Author Name Unknown Organization [facility] Address [address] [facility] [place] [address] Phone [phone] Care Team Providers Care C Engineer Name Role Phone Amaya Oro Primary Care Provider +1- [phone] Encounter Details Date Type Department Care Team (Late st Contact Info) Description 09/27/2024 Orders Only Unspecified Department Marilia Gambino PA-C [address] [place] [address] Allergies No known active allergiesdocumented as of this encounter (statuses as of 09/27/2024) Medications Medication Sig Dispensed Refills Start Date End Date Status Calcium Polycarbophil 625 MG Oral Tablet Take 1 Tablet by mouth in the morning. 01/26/2016 Active Multiple Vitamins-Minerals (MULTIVITAMIN MEN) TABS Take 1 Tab by mouth daily. Active Acetaminophen ER 650 MG Oral Tablet Extended Release Take by mouth. 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 Apply to the affected shoulder and hands. 350 g 3 04/12/2023 Active Losartan Potassium 25 MG Oral Tablet (Cozaar)Indications:H ypertension goal BP (blood pressure) < 140/90 Take 1 Tablet by mouth in the morning. 90 Tablet 3 2023 Active Eliquis 5 MG Oral Tablet (Apixaban)Indications :Paroxysmal atrial fibrillation (HCC) TAKE 1 TABLET TWICE A DAY 180 Tablet 3 09/04/2024 Active Atorvastatin Calcium 10 MG Oral Tablet (Lipitor)Indications: Dyslipidemia, goal LDL below 160 TAKE 1 TABLET DAILY 90 Tablet 3 09/18/2024 Active documented as of this encounter (statuses as of 09/27/2024) Active Problems Problem Noted Date Diagnosed Date VALENCIA (obstructive sleep apnea) 05/21/2024 Prediabetes 11/02/2021 Overview: Per Prediabetes protocol Elevated blood pressure, situational 03/30/2017 Paroxysmal atrial fibrillation 03/30/2017 Bronchitis, complicated 02/05/2016 Chronic rhinitis 02/05/2016 Dyslipidemia, goal LDL below 160 11/13/2014 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 ADVANCE DIRECTIVE INFORMATION 05/10/2006 09/24/2024 Overview: Pt took booklet. PURE HYPERCHOLESTEROLEM 05/06/199910/21 Overview: Per Lipid Taxonomy. Lateral epicondylitis 05/06/19992009 documented as of this encounter (statuses as of 09/27/2024) Immunizations Name Administration Dates Next Due COVID-19 mRNA, LNP-s, No Pre serve, 2-Dose Series (Genome) 12/07/2021,02/24/2021,02/03/2021 TDAP (age 10 and older)(Boostrix) 04/25/2018 [...] Assigned at Male 05/05/2020 8:38 AM EDT Gender Identity Male 05/05/2020 8:38 AM EDT Sexual Orientation Straight 05/05/2020 8: 38 AM EDT Job Start Date Occupation Industry Not on file Not on file Not on file documented as of this encounter Plan of Treatment Upcoming Encounters Date Type Department Care Team (Late st Contact Info) Description 11/26/2024 8:00 AM EST Office Visit Family Practice [facility] [address] [place] [address] Franklyn Nelson DO [address] [place] [address] 12/04/2024 8:00 AM EST Office Visit Cardiology, [facility] [address] [place] [address] Marilia Gambion PA-C [address] [place] [address] Scheduled Procedures Name Priority Associated Diagnoses Date/Ti [...] this encounter Medical Devices Implanted Type Area Mechanic'S Assistant Device Identifier Shelf Expiration Date Model / Serial / Lot Mesh 3dmax 3.1x5.3in t Med - [id number] Implanted:Qty: 1 on 07/10/2021 by Jayant Schroeder MD at OR [facility] Left: Groin CR BARD : DAVOL 12/18/2025 [id number] / / [id number] Description:Inguinal area documented as of this encounter Procedures Procedure Name Priority Date/Time Associated Diagnosis Comments CV STRESS TREADMILL Routine 09/27/2024 1:56 PM EST documented in this encounter Results * CV STRESS TREADMILL (09/27/2024 1:56 PM EST) 09/27/2024 1:56 PM EST Marilia Gambino PA-C EKG [facility] CARDIOLOGY documented in this encounter Advance Directives * Full Code (Latest Code Status on File) Date Activated Date Inactivated Comments 07/10/2021 10:08 AM 07/10/2021 5:39 PM This order reflects the patients wishes and were consensually agreed upon. Care Teams C Engineer Relationship Specialty Start Date End Date Amaya Oro CRNP [address] [place] [address] PCP - General Nurse Practitioner 05/31/24 documented as of this encounter
--- OUTSIDE RECORDS SUMMARY | 2024-11-02 12:34 | External Medical Summary | Summary of Care ---
Author Name Unknown Organization [facility] Address [address] [facility] [address] Phone [phone] Care Team Providers Care Spinneret Person Name Role Phone Amaya Oro Primary Care Provider +1- [phone] Reason for Visit * Reason Onset Date Comments Abnormal Test Results 10/12/2024 Encounter Details Date Type Department Care Team (Late st Contact Info) Description 10/12/2024 Telephone [facility]acy Hebert [facility] [id number] Marilia Gambino PA-C 400 [facility] [place] [address] Abnormal Test Results Allergies [...] Date Viral URI with cough 02/05/2016 018 [facility] current use of ant icoagulant therapy 02/05/2016 [...] 10/12/2024 2:21 PM EST Please see patient's Soraa message. Sent patient a Soraa reply. Awaiting respond to place referral to sleep medicine, * Telephone Encounter - Jose Mcmahan LPN - 10/12/2024 2:03 PM EST Sent patient a Soraa message to make aware. ----- Message from Michael Velasquez sent at 10/12/2024 1:48 PM EST ----- Zio findings similar to prior. [place] [facility] [place], not felt to have Tachy-Wes [...] 8:00 AM EST Office Visit Family Practice [facility] [address] [facility] [place] [address] Franklyn Nelson DO 132 [facility] [place] [address] 12/04/2024 8:00 AM EST Office Visit Cardiology, [facility] [address] [facility] [place] [address] Marilia Gambino PA-C [address] [place] [address] [place] [address] Scheduled Procedures Name Priority Associated Diagnoses Date/Ti [...] this encounter Medical Devices Implanted Type Area Retail Department Supervisor Device Identifier Shelf Expiration Date Model / Serial / Lot Mesh 3dmax 3.1x5.3in [facility] - [id number] Implanted:Qty: 1 on 07/10/2021 by Jayant Schroeder MD at OR [facility] Left: Groin CR BARD : DAVOL 12/18/2025 [id number] / / [id number] Description:Inguinal area documented as of this encounter Advance Directives * Full Code (Latest Code Status on File) Date Activated Date Inactivated Comments 07/10/2021 10:08 AM 07/10/2021 5:39 PM This order reflects the patients wishes and were consensually agreed upon. Care Teams Spinneret Person Relationship Specialty Start Date End Date Amaya Oro CRNP [address] [place] [address] PCP - General Nurse Practitioner 05/31/24 documented as of this encounter
--- OUTSIDE RECORDS SUMMARY | 2024-11-02 12:34 | External Medical Summary | Summary of Care ---
Author Name Unknown Organization [facility] Address [address] [facility] [place] [address] Phone [phone] Care Team Providers Care Cooker Pie Filling Name Role Phone Amaya Oro Primary Care Provider +1- [phone] Reason for Visit * Reason Onset Date Comments Encounter Created in Error 09/28/2024 Encounter Details Date Type Department Care Team (Late st Contact Info) Description 09/28/2024 Telephone Cardiology, [facility] [address] [place] [address] Kayla Stevens PA-C [address] [place] [address] Encounter Created in Error Allergies No known active allergiesdocumented as of this encounter (statuses as of 09/28/2024) Medications Calcium Polycarbophil 625 MG Oral Tablet [...] TABLET DAILY 90 Tablet 3 4 Active documented as of this encounter (statuses as of 09/28/2024) Active Problems Problem Noted Date Diagnosed Date VALENCIA (obstructive sleep apnea) 05/21/2024 Prediabetes 11/02/2021 Overview: Per Prediabetes protocol Elevated blood pressure, situational 03/30/2017 Paroxysmal atrial fibrillation 03/30/2017 Bronchitis, complicated 02/05/2016 Chronic rhinitis 02/05/2016 Dyslipidemia, goal LDL below 160 11/13/2014 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 documented as of this encounter (statuses as of 09/28/2024) Resolved Problems Problem Noted Date Diagnosed Date Resolved Date Viral URI with cough 02/05/2016 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 senior care current use of ant icoagulant therapy 02/05/2016 [...] as of this encounter (statuses as of 09/28/2024) Immunizations Name Administration Dates Next Due COVID-19 [...] 8:00 AM EST Office [facility] [place] [address] Franklyn Nelson DO 132 [facility] [place] [address] 12/04/2024 8:00 AM EST Office Visit Cardiology, [facility] 132 [facility] [place] [address] Marilia Gambino PA-C [address] [place] [address] [place] [address] Scheduled Procedures Name Priority Associated Diagnoses Date/Ti [...] this encounter Medical Devices Implanted Type Area Tag Writer Device Identifier Shelf Expiration Date Model / Serial / Lot Mesh 3dmax 3.1x5.3in [facility] - [id number] Implanted:Qty: 1 on 07/10/2021 by Jayant Schroeder MD at [facility] Left: Groin CR BARD : DAVOL 12/18/2025 [id number] / / [id number] Description:Inguinal area documented as of this encounter Advance Directives * Full Code (Latest Code Status on File) Date Activated Date Inactivated Comments 07/10/2021 10:08 AM 07/10/2021 5:39 PM This order reflects the patients wishes and were consensually agreed upon. Care Teams Cooker Pie Filling Relationship Specialty Start Date End Date Amaya Oro CRNP [address] [place] [address] PCP - General Nurse Practitioner 05/31/24 documented as of this encounter
--- OUTSIDE RECORDS SUMMARY | 2024-11-02 12:34 | External Medical Summary | Summary of Care ---
Author Name Unknown Organization [facility] Address [address] [facility] [place] [address] Phone [phone] Care Team Providers Care Caseworker Protective Services Name Role Phone Amaya Oro Primary Care Provider +1- [phone] Reason for Visit * Reason Onset Date Comments Health Maintenance 10/10/2024 Encounter Details Date Type Department Care Team (Late st Contact Info) Description 10/10/2024 Telephone Family Practice [facility] [address] [place] [id number] Amaya Oro CRNP [address] [facility] [place] [address] Health Maintenance Allergies No known active allergiesdocumented as of this encounter (statuses as of 10/10/2024) Medications Calcium Polycarbophil 625 MG Oral Tablet [...] as of this encounter (statuses as of 10/10/2024) Active Problems Problem Noted Date Diagnosed Date VALENCIA (obstructive sleep apnea) 05/21/2024 Prediabetes 11/02/2021 Overview: Per Prediabetes protocol Elevated blood pressure, situational 03/30/2017 Paroxysmal atrial fibrillation 03/30/2017 Bronchitis, complicated 02/05/2016 Chronic rhinitis 02/05/2016 Dyslipidemia, goal LDL below 160 11/13/2014 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 documented as of this encounter (statuses as of 10/10/2024) Resolved Problems Problem Noted Date Diagnosed Date [...] as of this encounter (statuses as of 10/10/2024) Immunizations Name Administration Dates Next Due COVID-19 [...] encounter Miscellaneous Notes * Telephone Encounter - Soila Betancur LPN - 10/10/2024 9:02 AM EST Care Gaps Comprehensive Care Outreach Last Office/Telemedicine Visit: 05/21/2024 (in office), Visit date not found (telemedicine) Next Office Visit: 11/26/2024 Hemoglobin AIC Results: Lab Results Component Value Date/Time HEMOGLOBIN A1C - [facility] 5.9 (H) 11/07/2023 10:12 AM HEMOGLOBIN A1C - [facility] 6.1 (H) 04/12/2023 09:23 AM HEMOGLOBIN A1C - [facility] 5.9 (H) 09/21/2022 07:40 AM HEMOGLOBIN A1C - [facility] 5.8 (H) 04/21/2020 08:53 AM HEMOGLOBIN A1C - [facility] 5.8 (H) 07/13/2019 07:54 AM BP Readings from Last 1 Encounters: 08/13/24 124/86 Reviewed Health Maintenance below: Health Maintenance Topic Date Due Depression Screening 04/12/2024 Influenza Vaccine (FLU shot) (1) Never done COVID-19 Vaccine ( season) 2024 HbA1c 11/07/2024 GFR 11/07/2024 labs Already ordered Care Gap Outreach Action Taken: Outreach not indicated documented in this encounter Plan of Treatment Upcoming Encounters Date Type Department Care Team (Late st Contact Info) Description 11/26/2024 8:00 AM EST Office Visit Family Practice [facility] [address] [place] [address] Franklyn Nelson, [address] [place] [address] 12/04/2024 8:00 AM EST Office Visit [facility], [facility] [address] [facility] [place] [address] Marilia Gambino PA-C [address] [place] [address] Scheduled Procedures Name Priority Associated Diagnoses [...] this encounter Medical Devices Implanted Type Area Flag Signaler Device Identifier Shelf Expiration Date Model / Serial / Lot Mesh 3dmax 3.1x5.3in t Med - [id number] Implanted:Qty: 1 on 07/10/2021 by Jayant Schroeder MD at OR [facility] Left: Groin CR BARD : DAVOL 12/18/2025 [id number] / / [id number] Description:Inguinal area documented as of this encounter Advance Directives * Full Code (Latest Code Status on File) Date Activated Date Inactivated Comments 07/10/2021 10:08 AM 07/10/2021 5:39 PM This order reflects the patients wishes and were consensually agreed upon. Care Teams Caseworker Protective Services Relationship Specialty Start Date End Date Amaya Oro CRNP [address] [place] [address] PCP - General Nurse Practitioner 05/31/24 documented as of this encounter
--- OUTSIDE RECORDS SUMMARY | 2024-11-02 12:34 | External Medical Summary | Summary of Care ---
Author Name Unknown Organization [facility] Address [address] [facility] [address] Phone [phone] Care Team Providers Care Full Decator Operator Name Role Phone Amaya Oro Primary Care Provider +1- [phone] Reason for Visit * Reason Onset Date Comments Abnormal Test Results 10/12/2024 Encounter Details Date Type Department Care Team (Late st Contact Info) Description 10/12/2024 [facility]phone [facility] [address] [facility] [phone] Marilia Gambino PA-C [address] [facility] [place] [address] Abnormal Test Results Allergies [...] Viral URI with cough 02/05/2016 018 intermediate current use of ant icoagulant therapy 02/05/2016 [...] encounter Miscellaneous Notes * Telephone Encounter - Michael Velasquez PA-C [...] 10/12/2024 2:03 PM EST Sent patient a [employer] message to make aware. ----- Message from Michael Velasquez sent at 10/12/2024 1:48 PM EST ----- Zio findings similar to prior. [place] [facility], not felt to have Tachy-Wes [...] 8:00 AM EST Office Visit Family Practice [facility] [address] [place] [address] Franklyn Nelson, [address] [place] [address] 12/04/2024 8:00 AM EST Office Visit Cardiology, [facility] [address] [place] [address] Marilia Gambino PA-C [address] [place] [address] Scheduled Procedures Name Priority Associated Diagnoses Date/Ti [...] this encounter Medical Devices Implanted Type Area Early Childhood Educator Aide Device Identifier Shelf Expiration Date Model / Serial / Lot Mesh 3dmax 3.1x5.3in Lft Med - [id number] Implanted:Qty: 1 on 07/10/2021 by Jayant Schroeder MD at OR [facility] Left: Groin CR BARD : DAVOL 12/18/2025 [id number] / / [id number] Description:Inguinal area documented as of this encounter Advance Directives * Full Code (Latest Code Status on File) Date Activated Date Inactivated Comments 07/10/2021 10:08 AM 07/10/2021 5:39 PM This order reflects the patients wishes and were consensually agreed upon. Care Teams Full Decator Operator Relationship Specialty Start Date End Date Amaya Oro CRNP [address] [place] [address] PCP - General Nurse Practitioner 05/31/24 documented as of this encounter
--- OUTSIDE RECORDS SUMMARY | 2024-11-02 12:34 | External Medical Summary | Summary of Care ---
Author Name Unknown Organization [facility] Address [address] [place] [address] Phone [phone] Care Team Providers Care Saloon Keeper Name Role Phone Amaya Oro Primary Care Provider +1- [phone] Encounter Details Date Type Department Care Team (Latest Contact Info) Description 09/27/2024 12:39 PM EST - 09/27/2024 11:59 PM [facility] Encounter Cardiac Studies, [address] [place] [phone] Discharge Disposition: Home - Self Care Allergies No known active allergiesdocumented as of [...] mRNA, LNP-s, No Pre serve, 2-Dose Series ([employer]) 12/07/2021,02/24/2021,02/03/2021 TDAP (age 10 and older)(Boost[employer]) 04/25/2018 [...] as of this encounter Miscellaneous Notes * Ancillary Progress Note - Leeann Ng RN - 09/27/2024 1:00 PM EST Regular TM stress test completed. documented in this encounter Plan of Treatment Upcoming Encounters Date Type Department Care Team (Late st Contact Info) Description 11/26/2024 8:00 AM EST Office Visit Family Practice [facility] [address] [facility] [place] [address] Franklyn Nelson DO [address] [facility] [place] [address] 12/04/2024 8:00 AM EST Office Visit Cardiology, [facility] [address] [facility] [place] [address] Marilia Gambino PA-C [address] [facility] [place] [phone] Scheduled Procedures Name Priority Associated Diagnoses Date/Ti [...] this encounter Medical Devices Implanted Type Area Shuttle Van Driver Device Identifier Shelf Expiration Date Model / Serial / Lot Mesh 3dmax 3.1x5.3in [facility] - [id number] Implanted:Qty: 1 on 07/10/2021 by Jayant Schroeder MD at OR [facility] Left: Groin CR BARD : DAVOL 12/18/2025 [id number] / / [id number] Description:Inguinal area documented as of this encounter Visit Diagnoses Diagnosis Bradycardia, sinus Other specified cardiac dysrhythmias Lightheadedness Dizziness and giddiness documented in this encounter Advance Directives * Full Code (Latest Code Status on File) Date Activated Date Inactivated Comments 07/10/2021 10:08 AM 07/10/2021 5:39 PM This order reflects the patients wishes and were consensually agreed upon. Care Teams Saloon Keeper Relationship Specialty Start Date End Date Amaya Oro CRNP [address] [place] [address] PCP - General Nurse Practitioner 05/31/24 documented as of this encounter
--- OUTSIDE RECORDS SUMMARY | 2024-11-02 12:34 | External Medical Summary | Summary of Care ---
Author Name Unknown Organization [facility] Address [address] [facility] [address] Phone [phone] Care Team Providers Care Cfo Name Role Phone Amaya Oro Primary Care Provider +1- [phone] Reason for Visit * Reason Onset Date Comments Abnormal Test Results 10/12/2024 Encounter Details Date Type Department Care Team (Late st Contact Info) Description 10/12/2024 [address] [facility] [phone] Marilia Gambino PA-C [address] [facility] [place] [address] Abnormal Test Results [...] Date Viral URI with cough 02/05/2016 018 FDC current use of ant icoagulant therapy 02/05/2016 [...] 10/12/2024 2:03 PM EST Sent patient a nxtControl message to make aware. ----- Message from Michael Velasquez sent at 10/12/2024 1:48 PM EST ----- Zio findings similar to prior. [place] [facility] [place], not felt to have Tachy-Wes [...] Montero CMA - 10/12/2024 8:44 AM EST Grace calling with prelim results. Notification for symptomatic bradycardia. 40bpm, lasting 30 seconds. Page 20 of chart 5. Report posted. documented in this encounter Plan of Treatment Upcoming Encounters Date Type Department Care Team (Late st Contact Info) Description 11/26/2024 8:00 AM EST Office Visit Family Practice [facility] [address] [place] [address] Franklyn Nelson DO [address] [place] [address] 12/04/2024 8:00 AM EST Office Visit Cardiology, [facility] [address] [place] [address] Marilia Gambino PA-C [address] [facility] [place] [address] Scheduled Procedures Name Priority [...] this encounter Medical Devices Implanted Type Area Rn Family Practice Device Identifier Shelf Expiration Date Model / Serial / Lot Mesh 3dmax 3.1x5.3in t Med - [id number] Implanted:Qty: 1 on 07/10/2021 by Jayant Schroeder MD at OR [facility] Left: Groin CR BARD : DAVOL 12/18/2025 [id number] / / [id number] Description:Inguinal area documented as of this encounter Advance Directives * Full Code (Latest Code Status on File) Date Activated Date Inactivated Comments 07/10/2021 10:08 AM 07/10/2021 5:39 PM This order reflects the patients wishes and were consensually agreed upon. Care Teams Cfo Relationship Specialty Start Date End Date Amaya Oro CRNP [address] [place] [address] PCP - General Nurse Practitioner 05/31/24 documented as of this encounter
== END 2024-11-01 17:34 | disposition home or self-care (01) | DRG 310 ==
LOC: ED 02:39 → 4W 04:56 → INTOOBSV 04:56 → 4W 05:36